=== PATIENT | female | born 1930 | race Caucasian/White ===

== ENCOUNTER → 2017-02-26 | Outpatient (CLI) | payer OTHER ==
[~2017-02-26] MED LIST: ACET300T2 PO; ASPI81TA28 PO; CLOP1TAB15 PO; CPR500 PO; CYAN10004 PO; FERR325T5 PO; GLC/500 PO; INSDGIPEN SC; INSUINJ4 SC; LISI40TA PO; LORA0.5T12 PO; MAGN250T3 PO; MAGN400T6 PO; MECL1TAB42 PO; METF1000 PO; MIRA1TAB3 PO; MTR500 PO; NTRGSL/4 UT; OMEP40CA41 PO; PENT100C6 PO; POLY335019 PO; POTA1080 PO; PROP20TA67 PO; SIMV40TA2 PO; SIMV40TA4 PO; [UNRECOGNIZED DRUG - CODE] PO
[2017-02-26 17:16] LABS: HEMATOCRIT 38.8 % (37-47); MEAN CORPUSCULAR HEMOGLOBIN 32.8 pg (25-34); MEAN CORPUSCULAR HGB CONC 33.8 g/dl (32-36); MEAN PLATELET VOLUME 9.3 fL (7.4-10.4); PLATELET COUNT 373 K/uL (130-400); WHITE BLOOD COUNT 13.88 K/uL (4.8-10.8)
[2017-02-26 17:23] LABS: ALT/SGPT 9 U/L (12-78); BLOOD UREA NITROGEN 31 mg/dl (7-18); BUN/CREATININE RATIO 15.7 (10-20); CALCIUM 9.4 mg/dl (8.5-10.1); CARBON DIOXIDE 26 mmol/L (21-32); CHLORIDE 105 mmol/L (98-107); GLUCOSE 78 mg/dl (70-99); SODIUM 139 mmol/L (136-145)
[2017-02-26 17:26] LABS: ALB/GLOB RATIO 0.8 (0.9-2); ALKALINE PHOSPHATASE 71 U/L (45-117); AST/SGOT 8 U/L (15-37)
[2017-02-26 20:16] LABS: BASO % 0.2 %; BASO ABS # 0.03 K/uL (0-0.2); COMPLETE YES; EOS % 2.2 %; IG% 0.3 %; LYMPH % 39.1 %; LYMPH ABS # 5.43 K/uL (1.2-3.4); MONO % 9.4 %; NEUT % 48.8 %
[2017-02-27 06:04] LABS: ESTIMATED AVERAGE GLUCOSE 163 mg/dl; HA1C FLAG Normal (Normal)
--- NOTE | 2017-03-05 11:40 | CODING QUERY MEDICAL NECESSITY ---
CQSUPPORTING DIAGNOSIS NEEDED A supporting diagnosis is required for the test/procedure performed on this patient in order for us to be reimbursed by the patient's insurance. Please provide a supporting diagnosis for the following test/procedure listed below next to the test name along with your signature. *If there is no additional diagnosis for this patient that would support the following test/procedure please document that below next to the test/procedure. Test(s)/Procedure(s) that require a supporting diagnosis: DOS 02/26/17 GLYCATED HEMOGLOBIN TEST VITAMIN D TEST VITAMIN B12 TEST Provider Signature: Date: Thank you Karen Esparza Health Information Management Once completed, please kindly fax back to [phone] For questions please call [phone]
== END | disposition home or self-care (01) ==
LOC: C.LABBC 14:37
PROVIDERS: ATTEND Internal Medicine
DX: D64.9 Anemia, unspecified (principal)

== ENCOUNTER 2017-10-17 19:18 | Inpatient (IN) | payer OTHER ==
[~2017-10-17] VITALS: Ht 160 cm; Wt 62.5 kg
[~2017-10-17 19:18] MED LIST changes: -CPR500 PO; -GLC/500 PO; -INSDGIPEN SC; -MAGN250T3 PO; -MECL1TAB42 PO; -MIRA1TAB3 PO; -MTR500 PO; -NTRGSL/4 UT; -POLY335019 PO; -POTA1080 PO; -SIMV40TA2 PO
[2017-10-17] MEDS ORDERED: INSDGIPEN SC (20:06)
[2017-10-17] MEDS ORDERED: POLY335019 PO (20:06)
[2017-10-17] MEDS ORDERED: MECL1TAB42 PO (20:06)
[2017-10-17] MEDS ORDERED: GLC/500 PO (20:06)
[2017-10-17] MEDS ORDERED: MAGN250T3 PO (20:06)
[2017-10-17] MEDS ORDERED: MIRA1TAB3 PO (20:07)
[2017-10-17] MEDS ORDERED: NTRGSL/4 UT (20:08)
[2017-10-17] MEDS ORDERED: SIMV40TA2 PO (20:11)
[2017-10-17] MEDS ORDERED: POTA1080 PO (20:11)
--- NOTE | 2017-10-17 20:20 | EMERGENCY ROOM VISIT NOTE ---
History First contact with patient: 19:25 Chief Complaint: CONSTIPATION Stated Complaint: NAUSEA/CONSTIPATION Nursing Triage Summary: Pt brought ALS from home for c/o constipation since Saturday, has had some nausea and rectal pain, denies either at present, denies abdominal pain. Pt states that she started leaking brown liquid from rectum today. Family called pcp and was advised to come to ED. Per EMS pt's family was concerned that pt has seems more tired than usual and that she is a diabetic, BSG for EMS was 200. EMS report that when they were getting the pt's vitals the carbon monixide alarm went off, pt has electric heat. History of Present Illness The patient is a 87 year old female who presents to the Emergency Room with complaints of constipation without bowel motion for 5 days. She denies abdominal pain but does report some adama-anal pain, with a known pmhx of hemorrhoids. She does report some leakage of fluid today and also reports diaphoresis and nausea earlier today but this has resolved.She denies any bleeding. Family noticed she was a bit more somnolent than usual and decided to call PCP who suggested they call EMS. She was diagnosed with a UTI yesterday but "doesn't do well" with antibiotics and is currently only taking AZO. Patient lives with her sister who is her primary animal care giver. She is mostly bedbound as she has chronic pain unresponsive to medications and can only find relief while lying flat. PMH significant for DM (well controlled), CAD, chronic pain. Review of Systems Constitutional: + weakness, No fever, No chills, No sweats, No weight loss, No fatigue, No problem reported ENT: No hearing loss, No unusual epistaxis, No nasal symptoms, No sore throat, No tinnitus, No dental problems, No trouble swallowing, No problem reported Respiratory: No cough, No sputum, No wheezing, No shortness of breath, No dyspnea on exertion, No dyspnea at rest, No hemoptysis, No problem reported Cardiovascular: No chest pain, No orthopnea, No PND, No edema, No claudication, No palpitations, No problem reported Abdomen: + constipation, No pain, No nausea, No vomiting, No diarrhea, No GI bleeding, No problem reported Musculoskeletal: + joint pain, + muscle pain Genitourinary - Female: + urinary frequency, + urinary urgency, No dysuria, No urinary incontinence, No urinary retention, No hematuria, No dysmenorrhea, No menorrhagia, No metrorrhagia, No rash, No vaginal bleeding, No vaginal discharge, No vaginal itching, No vulvodynia, No , No problem reported Integumentary: No rash Past Medical/Surgical History Medical Problems: (1) Colitis (2) CVA (3) Diabetes mellitus (4) History of - hypertension (5) Urinary tract infection Social History Smoking Status: Never Smoker Alcohol Use: none Drug Use: none Marital Status: Housing Status: lives with family Occupation Status: retired Current/Historical Medications Scheduled Aspirin (Aspirin Ec), 81 MG PO DAILY Clopidogrel (Plavix), 75 MG PO DAILY Cyanocobalamin (Vitamin B-12 1000 Mcg), 1,000 MCG PO DAILY Ferrous Sulfate (Ferrous Sulfate), 325 MG PO QAM Insulin Glargine (Lantus Solostar), 22 UNITS SC QPM Lisinopril (Zestril), 40 MG PO DAILY Lorazepam (Lorazepam), 0.5 MG PO BID Magnesium (Magnesium 250 mg), 2 TABS PO BID Metformin Hcl (Glucophage), 500 MG PO BID Mirabegron (Myrbetriq Er), 50 MG PO DAILY Nitroglycerin (Nitrostat), 0.4 MG UT PRN Omeprazole (Prilosec), 40 MG PO BID Pentosan Polysulfate Sodium (Elmiron), 100 MG PO TID Potassium Citrate (Alkalinizer (Potassium Citrate ER), 1 TAB PO BID Propranolol (Inderal), 20 MG PO DAILY Simvastatin (Zocor), 40 MG PO QPM Scheduled PRN Meclizine Hcl (Meclizine Hcl), 1 TAB PO TID PRN for Dizziness or Vertigo Polyethylene Glycol 3350 (Miralax), 17 GM PO DAILY PRN for Constipation Physical Exam Vital Signs Date Time Temp Pulse Resp B/P (MAP) Pulse Ox O2 Delivery O2 Flow Rate FiO2 10/17/17 22:58 36.5 95 20 129/67 96 Room Air 10/17/17 21:46 94 20 100/67 95 Room Air 10/17/17 19:26 36.6 86 20 129/72 93 Room Air Physical Exam General Appearance: WD/WN, no apparent distress (lying flat) Head: normocephalic, atraumatic Eyes: normal inspection, EOMI, sclerae normal ENT: hearing grossly normal Neck: supple, no adenopathy, no carotid bruits, trachea midline Respiratory/Chest: chest non-tender, lungs clear, normal breath sounds, no respiratory distress, no accessory muscle use Cardiovascular: regular rate, rhythm, no edema, no gallop, no JVD, no murmur , normal peripheral pulses Abdomen / GI: normal bowel sounds, soft, no organomegaly, + tenderness (LLQ) Extremities: normal inspection Neurologic/Psych: wrapper dipper II-XII nml as tested, no motor/sensory deficits, alert , normal mood/affect, normal reflexes, oriented x 3 Medical Decision & Procedures ER Provider Diagnostic Interpretation: ABDOMEN AND PELVIS CT WITHOUT CONTRAST CT DOSE: 341.48 mGy.cm HISTORY: constipation x 5 days, LLQ tenderness, r/o obstruction TECHNIQUE: Multiaxial CT images of the abdomen and pelvis were performed without contrast. A dose lowering technique was utilized adhering to the principles of ALARA. COMPARISON STUDY: Abdomen and pelvis CT 12/12/2011. FINDINGS: Mild interstitial thickening at the lung bases which is likely chronic. No suspicious lytic or blastic osseous lesions. Posterior decompression and fusion within the lower lumbar spine with pedicle screws and rods. Moderate hiatus hernia. The unenhanced liver, gallbladder, spleen, adrenal glands, and pancreas are unremarkable. Bilateral nephrolithiasis. No ureteral stones. No hydronephrosis. The bladder is decompressed by King catheter. The uterus and bilateral adnexa are unremarkable. No retroperitoneal lymphadenopathy. Tiny fat-containing umbilical hernia. Mild rectal wall thickening and perirectal fat stranding. Moderate sized stool ball within the rectum which measures 6 cm in diameter. Small to moderate amount well-formed stool seen throughout the colon. A 1.5 cm cyst within the upper pole of the right kidney. No evidence for bowel obstruction. Normal appendix. IMPRESSION: 1. Mild rectal wall thickening with perirectal fat stranding. This is consistent with a nonspecific proctitis and could represent a stercoral proctitis due to the stool ball within the rectum. 2. No evidence for bowel obstruction. 3. Bilateral nephrolithiasis. No hydronephrosis. 4. Moderate hiatus hernia. Laboratory Results Test 10/17/17 20:15 10/17/17 20:55 Urine Color ORANGE Urine Appearance SLIGHTLY CLOUDY (CLEAR) Urine pH (4.5-7.5) Urine Specific [place] 1.018 (1.000-1.030) Urine Protein NEG (NEG) Urine Glucose (UA) (NEG) Urine Ketones (NEG) Urine Occult Blood (NEG) Urine Nitrite (NEG) Urine Bilirubin (NEG) Urine Urobilinogen (NEG) Urine Leukocyte Esterase (NEG) Urine RBC 0-4 /hpf (0-4) Urine WBC >30 /hpf (0-5) Urine Epithelial Cells >30 /lpf (0-5) Urine Bacteria 1+ (NEG) Urine Mucus PRESENT (NONE PRSENT) Immature Granulocyte % (Auto) 0.3 % White Blood Count 19.02 K/uL (4.8-10.8) Red Blood Count 3.90 M/uL (4.2-5.4) Hemoglobin 12.7 g/dL (12.0-16.0) Hematocrit 38.1 % (37-47) Mean Corpuscular Volume 97.7 fL (80-100) Mean Corpuscular Hemoglobin 32.6 pg (25-34) Mean Corpuscular Hemoglobin Concent 33.3 g/dl (32-36) Platelet Count 369 K/uL (130-400) Mean Platelet Volume 8.8 fL (7.4-10.4) Neutrophils (%) (Auto) 73.8 % Lymphocytes (%) (Auto) 19.3 % Monocytes (%) (Auto) 6.3 % Eosinophils (%) (Auto) 0.2 % Basophils (%) (Auto) 0.1 % Neutrophils # (Auto) 14.04 K/uL (1.4-6.5) Lymphocytes # (Auto) 3.67 K/uL (1.2-3.4) Monocytes # (Auto) 1.19 K/uL (0.11-0.59) Eosinophils # (Auto) 0.04 K/uL (0-0.5) Basophils # (Auto) 0.02 K/uL (0-0.2) Immature Granulocyte # (Auto) 0.06 K/uL (0.00-0.02) Carboxyhemoglobin 0.3 % THgb Total Bilirubin 0.4 mg/dl (0.2-1) Aspartate Amino Transf (AST/SGOT) 13 U/L (15-37) Alanine Aminotransferase (ALT/SGPT) 10 U/L (12-78) Alkaline Phosphatase 82 U/L (45-117) Troponin I < 0.015 ng/ml (0-0.045) Total Protein 8.2 gm/dl (6.4-8.2) Albumin 3.3 gm/dl (3.4-5.0) Globulin 4.9 gm/dl (2.5-4.0) Albumin/Globulin Ratio 0.7 (0.9-2) Medications Administered Medications (Trade) Dose Ordered Sig/Nemo Route Start Time Stop Time Status Last Admin Dose Admin Bisacodyl (Dulcolax Supp) 10 mg 2303 ONCE MI 10/17/17 23:03 10/17/17 23:21 DC 10/18/17 01:43 10 MG ECG Indication: abdominal pain Rate (beats per minute): 95 Rhythm: sinus rhythm Findings: other (low voltage QRS, nonspecific ST changes) Comparison ECG Date: 02 oct 2013 Change: When compared with ECG of 02-OCT-2013 16:37, Nonspecific T wave abnormality, worse in Inferior leads ED Course 0: The patient was evaluated in room B12B. A complete history and physical exam was performed. 1944: Discussed case with Dr. Barrett, ordered UA, EKG, CBC, trop, carboxyhemoglobin, non-contrast CT abdo/pelvis 2234: I reevaluated the patient and updated her on her results. I discussed her treatment plan and she agrees to the plan. The patient will be further evaluated. 2241: I discussed the patients case with Dr. Joaquin, [facility] Hospitalist. He understands the patients condition and agrees to accept the patient. The patient will be further evaluated. Medical Decision Triage Nursing notes reviewed. Additional history obtained from patient and family. The patient's history was concerning for constipation. Differential diagnosis: Etiologies such as functional constipation, impaction, obstruction, volvulus, metabolic abnormality, infection, neurologic, as well as others were entertained. Physical examination findings: As above. No peritoneal findings noted on abdominal examination. Diagnostics interpreted by me: ECG: Normal sinus rhythm Low voltage QRS Nonspecific ST abnormality Abnormal ECG When compared with ECG of 02-OCT-2013 16:37, Nonspecific T wave abnormality, worse in Inferior leads The labs revealed leukocytosis, hyperkalemia, Cr of 2.08 Imaging studies: as above Consultation: A consultation was placed with the [facility] hospitalist. The case was discussed. The patient was evaluated in the Emergency Room for further treatment. Impression Primary Impression: Constipation Additional Impression: Hyperkalemia Departure Information Dispostion Admitted as an inpatient Condition FAIR Referrals Manjit Pearl M.D. (PCP) Patient Instructions My [facility] Resident Tracking Resident Involvement: Resident Care Provided Care Provided: Adult ED Problem Qualifiers Primary Impression: Constipation Constipation type: unspecified constipation type Qualified Codes: K59.00 - Constipation, unspecified
[2017-10-17 21:15] LABS: HEMATOCRIT 38.1 % (37-47); MEAN CELL VOLUME 97.7 fL (80-100); MEAN CORPUSCULAR HEMOGLOBIN 32.6 pg (25-34); MEAN CORPUSCULAR HGB CONC 33.3 g/dl (32-36); MEAN PLATELET VOLUME 8.8 fL (7.4-10.4); PLATELET COUNT 369 K/uL (130-400); WHITE BLOOD COUNT 19.02 K/uL (4.8-10.8)
--- NOTE | 2017-10-17 21:31 | DIAGNOSTIC IMAGING REPORT ---
ABDOMEN AND PELVIS CT WITHOUT CONTRAST CT DOSE: 341.48 mGy.cm HISTORY: constipation x 5 days, LLQ tenderness, r/o obstruction TECHNIQUE: Multiaxial CT images of the abdomen and pelvis were performed without contrast. A dose lowering technique was utilized adhering to the principles of ALARA. COMPARISON STUDY: Abdomen and pelvis CT 12/12/2011. FINDINGS: Mild interstitial thickening at the lung bases which is likely chronic. No suspicious lytic or blastic osseous lesions. Posterior decompression and fusion within the lower lumbar spine with pedicle screws and rods. Moderate hiatus hernia. The unenhanced liver, gallbladder, spleen, adrenal glands, and pancreas are unremarkable. Bilateral nephrolithiasis. No ureteral stones. No hydronephrosis. The bladder is decompressed by King catheter. The uterus and bilateral adnexa are unremarkable. No retroperitoneal lymphadenopathy. Tiny fat-containing umbilical hernia. Mild rectal wall thickening and perirectal fat stranding. Moderate sized stool ball within the rectum which measures 6 cm in diameter. Small to moderate amount well-formed stool seen throughout the colon. A 1.5 cm cyst within the upper pole of the right kidney. No evidence for bowel obstruction. Normal appendix. IMPRESSION: 1. Mild rectal wall thickening with perirectal fat stranding. This is consistent with a nonspecific proctitis and could represent a stercoral proctitis due to the stool ball within the rectum. 2. No evidence for bowel obstruction. 3. Bilateral nephrolithiasis. No hydronephrosis. 4. Moderate hiatus hernia. Electronically signed by: Hood Perez M.D. 10/17/2017 9:30 PM Dictated Date/Time: 10/17/2017 9:17 PM
[2017-10-17 21:40] LABS: ALT/SGPT 10 U/L (12-78); AST/SGOT 13 U/L (15-37); BLOOD UREA NITROGEN 35 mg/dl (7-18); BUN/CREATININE RATIO 16.6 (10-20); CALCIUM 9.6 mg/dl (8.5-10.1); CARBON DIOXIDE 22 mmol/L (21-32); CHLORIDE 101 mmol/L (98-107); CREATININE 2.08 mg/dl (0.60-1.20); GLUCOSE 192 mg/dl (70-99); POTASSIUM 5.6 mmol/L (3.5-5.1); SODIUM 134 mmol/L (136-145)
[2017-10-17 21:44] LABS: ALB/GLOB RATIO 0.7 (0.9-2); ALKALINE PHOSPHATASE 82 U/L (45-117)
[2017-10-17 21:45] LABS: BASO % 0.1 %; BASO ABS # 0.02 K/uL (0-0.2); COMPLETE YES; EOS % 0.2 %; IG% 0.3 %; LYMPH % 19.3 %; LYMPH ABS # 3.67 K/uL (1.2-3.4); MONO % 6.3 %; NEUT % 73.8 %
[2017-10-17] MEDS ORDERED: CEFTRIAXONE SOD INJ 1 GM ADDVIAL IV STA (22:33)
[2017-10-17] MEDS ORDERED: BISACODYL 10 MG SUPP PR ONE (23:03)
[2017-10-17] MEDS ORDERED: NITROGLYCERIN 0.4 MG SL PER TAB CHARGE UT SCH (23:15)
[2017-10-17] MEDS ORDERED: BISACODYL 10 MG SUPP PR PRN (23:15)
[2017-10-17] MEDS ORDERED: MECLIZINE HCL 25 MG TAB PO PRN (23:15)
[2017-10-17] MEDS ORDERED: ALUMINUM/MAGNESIUM/SIMETH (MAALOX MAX) 30 ML UDC PO PRN (23:15)
[2017-10-17] MEDS ORDERED: MAGNESIUM HYDROXIDE SUSP 30 ML UDC PO PRN (23:15)
[2017-10-17] MEDS ORDERED: NON-FORMULARY MEDICATION (Polyethylene Glycol 3350 (Miralax) 17 GM) PO PRN (23:15)
[2017-10-17] MEDS ORDERED: ONDANSETRON INJ 2 MG/ML 2 ML VIAL IV PRN (23:15)
[2017-10-17] MEDS ORDERED: POLYETHYLENE (MIRALAX) 17 GM PACK PO PRN (23:15)
[2017-10-17 23:29] LABS: MANUAL MICROSCOPIC REQUIRED? YES; REVIEW REQ? NO
[2017-10-17 23:30] LABS: URINE APPEARANCE SLIGHTLY CLOUDY (CLEAR); URINE COLOR ORANGE; URINE SPECIFIC GRAVITY 1.018 (1.000-1.030)
[2017-10-17] MEDS ORDERED: GLUCOSE 10 TABS/TUBE PO PRN (23:30)
[2017-10-17] MEDS ORDERED: GLUCOSE 40% GEL 15 GM TUBE PO PRN (23:30)
[2017-10-17] MEDS ORDERED: GLUCAGON FOR INJ 1 MG VIAL SQ PRN (23:30)
[2017-10-17] MEDS ORDERED: DEXTROSE 50% 50 ML SYR IV PRN (23:30)
[2017-10-17 23:41] LABS: SULFASALICYLIC ACID NEG (NEG)
[2017-10-17 23:43] LABS: URINE WBC >30 /hpf (0-5)
[2017-10-17 23:44] LABS: URINE BACTERIA 1+ (NEG); URINE MUCUS PRESENT (NONE PRSENT)
[2017-10-17 23:46] LABS: URINE RBC 0-4 /hpf (0-4)
--- NOTE | 2017-10-18 00:16 | EMERGENCY ROOM VISIT NOTE ---
History Report prepared by Kartik: Silvestre Bui Under the Supervision of: Dr. Curly Barrett M.D. First contact with patient: 19:25 Chief Complaint: CONSTIPATION Stated Complaint: NAUSEA/CONSTIPATION Nursing Triage Summary: Pt brought ALS from home for c/o constipation since Saturday, has had some nausea and rectal pain, denies either at present, denies abdominal pain. Pt states that she started leaking brown liquid from rectum today. Family called pcp and was advised to come to ED. Per EMS pt's family was concerned that pt has seems more tired than usual and that she is a diabetic, BSG for EMS was 200. EMS report that when they were getting the pt's vitals the carbon monixide alarm went off, pt has electric heat. History of Present Illness The patient is a 87 year old female who presents to the Emergency Room with complaints of constant constipation that started five days ago. The patient states that she lives with her sister who is her cellular biologist. She reports that her sister usually gives her Miralax daily and has never experienced constipation problems in the past. The patient states that she has not been able to have a bowel movement since five days ago, but admits that today she noticed some brown leaking from her anus. She states that this morning she was also experiencing nausea, but denies any episodes of vomiting. The patient reports that she was also experiencing dizziness and diaphoresis. She reports that there is pain in the left lower quadrant abdomen and around the perianal region. The patient is accompanied by her family who state that the patient has been more fatigued than usual lately. The patient admits to a history of hemorrhoids and a UTI. She states that she was diagnosed with a UTI yesterday and was put on Azo. The patient denies vomiting, fever, chest pain, shortness of breath, headache, a history of a bowel obstruction. Source of History: patient Onset: 5 days ago Position: other (global) Quality: other (global) Timing: constant Associated Symptoms: + diaphoresis, + nausea, + abdominal pain (LLQ), No fevers, No headache, No chest pain, No SOB, No vomiting Review of Systems See HPI for pertinent positives & negatives. A total of 10 systems reviewed and were otherwise negative. Past Medical & Surgical Medical Problems: (1) Colitis (2) CVA (3) Diabetes mellitus (4) History of - hypertension (5) Urinary tract infection Family History Patient reports no known family medical history. Social History Smoking Status: Never Smoker Alcohol Use: none Drug Use: none Marital Status: Housing Status: lives with family Occupation Status: retired Current/Historical Medications Scheduled Aspirin (Aspirin Ec), 81 MG PO DAILY Clopidogrel (Plavix), 75 MG PO DAILY Cyanocobalamin (Vitamin B-12 1000 Mcg), 1,000 MCG PO DAILY Ferrous Sulfate (Ferrous Sulfate), 325 MG PO QAM Insulin Glargine (Lantus Solostar), 22 UNITS SC QPM Lisinopril (Zestril), 40 MG PO DAILY Lorazepam (Lorazepam), 0.5 MG PO BID Magnesium (Magnesium 250 mg), 2 TABS PO BID Metformin Hcl (Glucophage), 500 MG PO BID Mirabegron (Myrbetriq Er), 50 MG PO DAILY Nitroglycerin (Nitrostat), 0.4 MG UT PRN Omeprazole (Prilosec), 40 MG PO BID Pentosan Polysulfate Sodium (Elmiron), 100 MG PO TID Potassium Citrate (Alkalinizer (Potassium Citrate ER), 1 TAB PO BID Propranolol (Inderal), 20 MG PO DAILY Simvastatin (Zocor), 40 MG PO QPM Scheduled PRN Meclizine Hcl (Meclizine Hcl), 1 TAB PO TID PRN for Dizziness or Vertigo Polyethylene Glycol 3350 (Miralax), 17 GM PO DAILY PRN for Constipation Allergies Coded Allergies: No Known Allergies (Verified , 10/21/11) Physical Exam Vital Signs Date Time Temp Pulse Resp B/P (MAP) Pulse Ox O2 Delivery O2 Flow Rate FiO2 10/17/17 22:58 36.5 95 20 129/67 96 Room Air 10/17/17 21:46 94 20 100/67 95 Room Air 10/17/17 19:26 36.6 86 20 129/72 93 Room Air Physical Exam Constitutional: Vital signs reviewed. Eyes: Pupils are equal round reactive to light. Conjunctiva are noninjected. ENT: Pharynx is clear without erythema or exudate. Mucous membranes are moist. Neck supple without meningeal signs. Respiratory: Clear to auscultation bilaterally. Breath sounds are equal bilaterally. Cardiovascular: Regular rate and rhythm. No rubs or gallops. GI: Soft, nondistended and nontender. Bowel sounds are present. Musculoskeletal: No peripheral edema. No lower extremity tenderness. Integumentary: No cyanosis. Neurological: The patient is awake and alert. No focal deficits. Psychiatric: Normal affect. Medical Decision & Procedures ER Provider Diagnostic Interpretation: CT results as stated below per my review and radiologist interpretation. ABDOMEN AND PELVIS CT WITHOUT CONTRAST CT DOSE: 341.48 mGy.cm HISTORY: constipation x 5 days, LLQ tenderness, r/o obstruction TECHNIQUE: Multiaxial CT images of the abdomen and pelvis were performed without contrast. A dose lowering technique was utilized adhering to the principles of ALARA. COMPARISON STUDY: Abdomen and pelvis CT 12/12/2011. FINDINGS: Mild interstitial thickening at the lung bases which is likely chronic. No suspicious lytic or blastic osseous lesions. Posterior decompression and fusion within the lower lumbar spine with pedicle screws and rods. Moderate hiatus hernia. The unenhanced liver, gallbladder, spleen, adrenal glands, and pancreas are unremarkable. Bilateral nephrolithiasis. No ureteral stones. No hydronephrosis. The bladder is decompressed by King catheter. The uterus and bilateral adnexa are unremarkable. No retroperitoneal lymphadenopathy. Tiny fat-containing umbilical hernia. Mild rectal wall thickening and perirectal fat stranding. Moderate sized stool ball within the rectum which measures 6 cm in diameter. Small to moderate amount well-formed stool seen throughout the colon. A 1.5 cm cyst within the upper pole of the right kidney. No evidence for bowel obstruction. Normal appendix. IMPRESSION: 1. Mild rectal wall thickening with perirectal fat stranding. This is consistent with a nonspecific proctitis and could represent a stercoral proctitis due to the stool ball within the rectum. 2. No evidence for bowel obstruction. 3. Bilateral nephrolithiasis. No hydronephrosis. 4. Moderate hiatus hernia. Electronically signed by: Hood Perez M.D. 10/17/2017 9:30 PM Dictated Date/Time: 10/17/2017 9:17 PM Laboratory Results 10/17/17 20:55 Red Blood Count 3.90, Mean Corpuscular Volume 97.7, Mean Corpuscular Hemoglobin 32.6, Mean Corpuscular Hemoglobin Concent 33.3, Mean Platelet Volume 8.8, Neutrophils (%) (Auto) 73.8, Lymphocytes (%) (Auto) 19.3, Monocytes (%) (Auto) 6.3, Eosinophils (%) (Auto) 0.2, Basophils (%) (Auto) 0.1, Neutrophils # (Auto) 14.04, Lymphocytes # (Auto) 3.67, Monocytes # (Auto) 1.19, Eosinophils # (Auto) 0.04, Basophils # (Auto) 0.02 10/17/17 20:55 Test 10/17/17 20:15 10/17/17 20:55 Urine Color ORANGE Urine Appearance SLIGHTLY CLOUDY (CLEAR) Urine pH (4.5-7.5) Urine Specific [place] 1.018 (1.000-1.030) Urine Protein NEG (NEG) Urine Glucose (UA) (NEG) Urine Ketones (NEG) Urine Occult Blood (NEG) Urine Nitrite (NEG) Urine Bilirubin (NEG) Urine Urobilinogen (NEG) Urine Leukocyte Esterase (NEG) Urine RBC 0-4 /hpf (0-4) Urine WBC >30 /hpf (0-5) Urine Epithelial Cells >30 /lpf (0-5) Urine Bacteria 1+ (NEG) Urine Mucus PRESENT (NONE PRSENT) White Blood Count 19.02 K/uL (4.8-10.8) Red Blood Count 3.90 M/uL (4.2-5.4) Hemoglobin 12.7 g/dL (12.0-16.0) Hematocrit 38.1 % (37-47) Mean Corpuscular Volume 97.7 fL (80-100) Mean Corpuscular Hemoglobin 32.6 pg (25-34) Mean Corpuscular Hemoglobin Concent 33.3 g/dl (32-36) Platelet Count 369 K/uL (130-400) Mean Platelet Volume 8.8 fL (7.4-10.4) Neutrophils (%) (Auto) 73.8 % Lymphocytes (%) (Auto) 19.3 % Monocytes (%) (Auto) 6.3 % Eosinophils (%) (Auto) 0.2 % Basophils (%) (Auto) 0.1 % Neutrophils # (Auto) 14.04 K/uL (1.4-6.5) Lymphocytes # (Auto) 3.67 K/uL (1.2-3.4) Monocytes # (Auto) 1.19 K/uL (0.11-0.59) Eosinophils # (Auto) 0.04 K/uL (0-0.5) Basophils # (Auto) 0.02 K/uL (0-0.2) RDW Standard Deviation 51.4 fL (36.4-46.3) RDW Coefficient of Variation 14.4 % (11.5-14.5) Immature Granulocyte % (Auto) 0.3 % Immature Granulocyte # (Auto) 0.06 K/uL (0.00-0.02) Carboxyhemoglobin 0.3 % THgb Anion Gap 11.0 mmol/L (3-11) Est Creatinine Clear Calc Drug Dose 17.1 ml/min Estimated GFR () 24.2 Estimated GFR (Non- 20.9 BUN/Creatinine Ratio 16.6 (10-20) Calcium Level 9.6 mg/dl (8.5-10.1) Total Bilirubin 0.4 mg/dl (0.2-1) Aspartate Amino Transf (AST/SGOT) 13 U/L (15-37) Alanine Aminotransferase (ALT/SGPT) 10 U/L (12-78) Alkaline Phosphatase 82 U/L (45-117) Troponin I < 0.015 ng/ml (0-0.045) Total Protein 8.2 gm/dl (6.4-8.2) Albumin 3.3 gm/dl (3.4-5.0) Globulin 4.9 gm/dl (2.5-4.0) Albumin/Globulin Ratio 0.7 (0.9-2) Laboratory results as reviewed by me. ECG Indication: other (dizziness) Rate (beats per minute): 95 Rhythm: normal sinus Findings: other (limited interpretation due to baseline artifact. No ST elevations.) ED Course 1958: The patient was evaluated in room B12B. A complete history and physical exam was performed. 2234: I reevaluated the patient and updated her on her results. I discussed her treatment plan and she agrees to the plan. The patient will be further evaluated. 2241: I discussed the patients case with Dr. Joaquin, [facility] Hospitalist. He understands the patients condition and agrees to accept the patient. The patient will be further evaluated. Medical Decision This is a 87-year-old female who presents with limited bowel movements as well as generalized malaise. Differential diagnosis includes fecal impaction, constipation, bowel obstruction, UTI, SIRS, cardiac, metabolic derangement. I did perform a limited focused review of portions of the patient's old chart on the electronic medical record. The patient has had no recent pertinent visits to this hospital. I did evaluate the patient as noted above. She is presenting with rectal pain and decreased bowel movements. She states it was all liquid today. She has no tenderness on examination of her abdomen currently. She also feels weak in general and dizzy and had urinary symptoms but did not take any antibiotics because she states oral antibiotics do not agree with her. EMS also noted that there CO2 detectors went off when they went in her house but the patient does not have any gas in her house. All of her utilities are electric. IV access was established. The patient was placed on a continuous quality assurance monitor. I did order and personally review the patient's 12-lead EKG as described above. I did order and review the patient's blood work as noted in the electronic medical record. Her white blood cell count is elevated. She does have chronic kidney disease and her potassium is slightly elevated. I did order a CT of the abdomen and pelvis. I did review the images myself as well as the radiology report as described above. Does have evidence of proctitis as well as fecal impaction. The case was discussed with the hospitalist and case making machine operator for further evaluation in the hospital. Resident Physician Supervision Note: I did evaluate and examine this patient myself. I did guide management for the patient. I agree with the resident's Dr. Jcaey Weiner assessment as discussed. Please see the resident's dictation for further details. Medication Reconcilliation Current Medication List: was personally reviewed by me Blood Pressure Screening Patient's blood pressure: Elevated blood pressure Blood pressure disposition: Referred to PCP Consults Time Called: 2241 Consulting Physician: Dr. Joaquin [facility] Hospitalist Returned Call: 2241 I discussed the patients case with Dr. Joaquin [facility] Hospitalist. He understands the patients condition and agrees to accept the patient. The patient will be further evaluated. Impression Primary Impression: Proctitis Additional Impressions: Fecal impaction Chronic kidney disease Hyperkalemia UTI (urinary tract infection) Scribe Attestation The scribe's documentation has been prepared under my direct and personally reviewed by me in its entirety. I confirm that the note above accurately reflects all work, treatment, procedures, and medical decision making performed by me. Departure Information Dispostion Being Evaluated By Hospitalist Referrals Manjit Pearl M.D. (PCP) Patient Instructions My [facility] Problem Qualifiers Additional Impressions: Chronic kidney disease Chronic kidney disease stage: unspecified stage Qualified Codes: N18.9 - Chronic kidney disease, unspecified UTI (urinary tract infection) Urinary tract infection type: site unspecified Hematuria presence: with hematuria Qualified Codes: N39.0 - Urinary tract infection, site not specified ; R31.9 - Hematuria, unspecified
[2017-10-18] MEDS ORDERED: INSULIN GLARGINE SOLOSTAR 100 UNITS/ML 3 ML PEN SC STA (00:57)
[2017-10-18] MEDS: SODIUM CHLORIDE 0.9% 1000ML 1,000 ML IV SCH ×2 (01:30→17:00)
[2017-10-18] MEDS: CIPROFLOXACIN / D5W 400 MG in PREMIXED IN D5W 200 ML IV SCH (01:42)
[2017-10-18] MEDS: METRONIDAZOLE / NSS 500 MG in PREMIXED NSS 100 ML IV SCH ×3 (01:43→16:55)
[2017-10-18] MEDS: ACETAMINOPHEN 325 MG TAB PO PRN ×2 (01:52→18:25)
[2017-10-18 02:00] VITALS: BP 101/59; PULSE 95; TEMP 36.6; O2SAT 96; Ht 160 cm; Wt 62.5 kg
--- NOTE | 2017-10-18 02:21 | History and Physical ---
History & Physical Date & Time of Service: Oct 18, 2017 at 01:59 Chief Complaint: Colitis, Urinary Tract Infection Primary Care Physician: Manjit Pearl M.D. History of Present Illness Source: patient, family (daughter) The patient is an 87-year-old female with a past medical history of coronary artery disease, type 2 diabetes, GERD, chronic back pain, overactive bladder, interstitial cystitis anxiety, who presents to the emergency department with 5 days of inability to have a bowel movement. Patient also reports feeling weak, and family note the same. The patient reports only mild abdominal pain earlier today which is now resolved. The patient denies any nausea or vomiting. The patient is usually on a daily bowel regimen with MiraLAX which she has continued to take. In addition she reports dysuria for the past 2 days and started Pyridium has not been on antibiotics. The patient denies having any fevers, chills or sweats. Appetite has been slightly diminished. The patient has significant head to toe pain which is long-standing, and in recent days his fortunately unchanged. The pain stems from chronic back issues and surgery. Unfortunately given her chronic pain, the patient is seldom ambulatory, and only walks to go to the bathroom. Otherwise it is noted by the daughter that the patient is usually confined to the bed of the couch. The patient lives at home with her oldest daughter. In the emergency room a CT scan of her abdomen was done which did show evidence of a stercoral colitis, and fecal impaction. She had a white blood cell count of 19. The UA could not be interpreted as a parent was on Pyridium and urine culture was sent. Decision was made to admit the patient for further evaluation and management. Past Medical/Surgical History Medical Problems: (1) CVA Status: Resolved (2) Diabetes mellitus Status: Chronic (3) History of - hypertension Status: Chronic Family History Patient reports no known family medical history. Social History Smoking Status: Never Smoker Smokeless Tobacco Use: No Alcohol Use: none Drug Use: none Marital Status: Housing status: lives with family (daughter) Occupational Status: retired Immunizations History of Influenza Vaccine: No Influenza Vaccine Date: Sep 14, 2013 History of Tetanus Vaccine?: UTD History of Pneumococcal: Unknown History of Hepatitis B Vaccine: Unknown Multi-Drug Resistant Organisms History of MDRO: No Allergies Coded Allergies: No Known Allergies (Verified , 10/21/11) Home Medications Scheduled Aspirin (Aspirin Ec), 81 MG PO DAILY Clopidogrel (Plavix), 75 MG PO DAILY Cyanocobalamin (Vitamin B-12 1000 Mcg), 1,000 MCG PO DAILY Ferrous Sulfate (Ferrous Sulfate), 325 MG PO QAM Insulin Glargine (Lantus Solostar), 22 UNITS SC QPM Lisinopril (Zestril), 40 MG PO DAILY Lorazepam (Lorazepam), 0.5 MG PO BID Magnesium (Magnesium 250 mg), 2 TABS PO BID Metformin Hcl (Glucophage), 500 MG PO BID Mirabegron (Myrbetriq Er), 50 MG PO DAILY Nitroglycerin (Nitrostat), 0.4 MG UT PRN Omeprazole (Prilosec), 40 MG PO BID Pentosan Polysulfate Sodium (Elmiron), 100 MG PO TID Potassium Citrate (Alkalinizer (Potassium Citrate ER), 1 TAB PO BID Propranolol (Inderal), 20 MG PO DAILY Simvastatin (Zocor), 40 MG PO QPM Scheduled PRN Meclizine Hcl (Meclizine Hcl), 1 TAB PO TID PRN for Dizziness or Vertigo Polyethylene Glycol 3350 (Miralax), 17 GM PO DAILY PRN for Constipation Review of Systems A 10 point review of systems was negative unless stated above. Physical Exam Vital Signs Date Time Temp Pulse Resp B/P (MAP) Pulse Ox O2 Delivery O2 Flow Rate FiO2 10/18/17 00:12 70 20 100/70 98 10/17/17 22:58 36.5 95 20 129/67 96 Room Air 10/17/17 21:46 94 20 100/67 95 Room Air 10/17/17 19:26 36.6 86 20 129/72 93 Room Air General Appearance: WD/WN, no apparent distress, + pertinent finding (patient is lying on her left side; the patient has markedly difficulty lying flat on her back to pain) Head: normocephalic, atraumatic Eyes: normal inspection, EOMI ENT: hearing grossly normal, pharynx normal Neck: supple, no adenopathy, no JVD Respiratory/Chest: lungs clear, no respiratory distress Cardiovascular: regular rate, rhythm, no gallop, no murmur Abdomen/GI: normal bowel sounds, non tender, soft, + distended Back: no CVA tenderness, + pertinent finding (erythema from the sacral area, with evidence of [place] risk of decubitus ulceration) Extremities/Musculoskelatal: no calf tenderness, no pedal edema Neurologic/Psych: alert, normal mood/affect, oriented x 3 Skin: normal color, warm/dry, no rash Lymphatic: no adenopathy Diagnostics Laboratory Results Results Past 24 Hours Test 10/17/17 20:15 10/17/17 20:55 Range/Units Urine Color ORANGE Urine Appearance SLIGHTLY CLOUDY CLEAR Urine pH 4.5-7.5 Urine Specific [place] 1.018 1.000-1.030 Urine Protein NEG NEG Urine Glucose (UA) NEG Urine Ketones NEG Urine Occult Blood NEG Urine Nitrite NEG Urine Bilirubin NEG Urine Urobilinogen NEG Urine Leukocyte Esterase NEG Urine RBC 0-4 0-4 /hpf Urine WBC >30 0-5 /hpf Urine Epithelial Cells >30 0-5 /lpf Urine Bacteria 1+ NEG Urine Mucus PRESENT NONE PRSENT White Blood Count 19.02 4.8-10.8 K/uL Red Blood Count 3.90 4.2-5.4 M/uL Hemoglobin 12.7 12.0-16.0 g/dL Hematocrit 38.1 37-47 % Mean Corpuscular Volume 97.7 80-100 fL Mean Corpuscular Hemoglobin 32.6 25-34 pg Mean Corpuscular Hemoglobin Concent 33.3 32-36 g/dl Platelet Count 369 130-400 K/uL Mean Platelet Volume 8.8 7.4-10.4 fL Neutrophils (%) (Auto) 73.8 % Lymphocytes (%) (Auto) 19.3 % Monocytes (%) (Auto) 6.3 % Eosinophils (%) (Auto) 0.2 % Basophils (%) (Auto) 0.1 % Neutrophils # (Auto) 14.04 1.4-6.5 K/uL Lymphocytes # (Auto) 3.67 1.2-3.4 K/uL Monocytes # (Auto) 1.19 0.11-0.59 K/uL Eosinophils # (Auto) 0.04 0-0.5 K/uL Basophils # (Auto) 0.02 0-0.2 K/uL RDW Standard Deviation 51.4 36.4-46.3 fL RDW Coefficient of Variation 14.4 11.5-14.5 % Immature Granulocyte % (Auto) 0.3 % Immature Granulocyte # (Auto) 0.06 0.00-0.02 K/uL Carboxyhemoglobin 0.3 % THgb Sodium Level 134 136-145 mmol/L Potassium Level 5.6 3.5-5.1 mmol/L Chloride Level 101 98-107 mmol/L Carbon Dioxide Level 22 21-32 mmol/L Anion Gap 11.0 3-11 mmol/L Blood Urea Nitrogen 35 7-18 mg/dl Creatinine 2.08 0.60-1.20 mg/dl Est Creatinine Clear Calc Drug Dose 17.1 ml/min Estimated GFR () 24.2 Estimated GFR (Non- 20.9 BUN/Creatinine Ratio 16.6 10-20 Random Glucose 192 70-99 mg/dl Calcium Level 9.6 8.5-10.1 mg/dl Total Bilirubin 0.4 0.2-1 mg/dl Aspartate Amino Transf (AST/SGOT) 13 15-37 U/L Alanine Aminotransferase (ALT/SGPT) 10 12-78 U/L Alkaline Phosphatase 82 45-117 U/L Troponin I < 0.015 0-0.045 ng/ml Total Protein 8.2 6.4-8.2 gm/dl Albumin 3.3 3.4-5.0 gm/dl Globulin 4.9 2.5-4.0 gm/dl Albumin/Globulin Ratio 0.7 0.9-2 Microbiology Results 10/17/17 Urine Culture, Received Pending Diagnostic Radiology [~ rep ct add3]] ABDOMEN AND PELVIS CT WITHOUT CONTRAST CT DOSE: 341.48 mGy.cm HISTORY: constipation x 5 days, LLQ tenderness, r/o obstruction TECHNIQUE: Multiaxial CT images of the abdomen and pelvis were performed without contrast. A dose lowering technique was utilized adhering to the principles of ALARA. COMPARISON STUDY: Abdomen and pelvis CT 12/12/2011. FINDINGS: Mild interstitial thickening at the lung bases which is likely chronic. No suspicious lytic or blastic osseous lesions. Posterior decompression and fusion within the lower lumbar spine with pedicle screws and rods. Moderate hiatus hernia. The unenhanced liver, gallbladder, spleen, adrenal glands, and pancreas are unremarkable. Bilateral nephrolithiasis. No ureteral stones. No hydronephrosis. The bladder is decompressed by King catheter. The uterus and bilateral adnexa are unremarkable. No retroperitoneal lymphadenopathy. Tiny fat-containing umbilical hernia. Mild rectal wall thickening and perirectal fat stranding. Moderate sized stool ball within the rectum which measures 6 cm in diameter. Small to moderate amount well-formed stool seen throughout the colon. A 1.5 cm cyst within the upper pole of the right kidney. No evidence for bowel obstruction. Normal appendix. IMPRESSION: 1. Mild rectal wall thickening with perirectal fat stranding. This is consistent with a nonspecific proctitis and could represent a stercoral proctitis due to the stool ball within the rectum. 2. No evidence for bowel obstruction. 3. Bilateral nephrolithiasis. No hydronephrosis. 4. Moderate hiatus hernia. Electronically signed by: Hood Perez M.D. 10/17/2017 9:30 PM Dictated Date/Time: 10/17/2017 9:17 PM The status of this report is Signed. Draft = Not yet reviewed or approved by Radiologist. Signed = Reviewed and approved by Radiologist. Impression Assessment and Plan A 87 year old female presenting with constipation, stercoral colitis, and suspected urinary tract infection. Our plan for her is as follows: - Proctitis/Stercoral colitis: IV ciprofloxacin and IV Flagyl. Keep patient on clear liquid diet and advance as tolerated. - Suspected urinary tract infection: UA cannot be interpreted due to Pyridium. Urine culture is pending.IV ciprofloxacin. Slow rehydration with NSS @ 75 ml/ hr. - Hyperkalemia: K 5.6. Rehydrate as above and repeat BMP with morning labs. - Constipation: Continue daily MiraLAX. One-time dose of Dulcolax suppository has been ordered. - Chronic back pain: Stable, patient reports intolerance to opiates. Tylenol PRN. 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 Baseline estimated between 1.6-1.7. Gently rehydrate as above, recheck BMP in the morning. - Coronary artery disease: Continue ASA, clopidogrel, propranolol, Lisinopril, nitroglycerin PRN and simvastatin. - Type 2 diabetes mellitus: Continue home dose of Lantus at nighttime. Sliding scale insulin coverage is been added. - GERD: Continue Pantoprazole. - Overactive bladder/interstitial cystitis: Continue Myrbetriq and Elmiron - Dizziness: Continue meclizine PRN - Anxiety : Continue Ativan - DVT prophylaxis: SCD, TEDs, Heparin s.c TID - OT and PT evaluations ordered - Level 5 DNR - Admission to medical/surgical floor. Attending addendum: I have physically seen this patient, have supervised the medical residents activities, and agree with the H&P unless as otherwise noted. Assessment and Plan: Stercoral colitis-- Place on Flagyl IV and Cipro IV. Clear liquid diet to advance as tolerated. Continue daily MiraLAX Dulcolax suppository now and daily when necessary NSS at 75 ML's per hour CAD/hypertension/chronic kidney disease--continue aspirin, clopidogrel, propranolol, lisinopril and nitroglycerin when necessary. Creatinine is a little worse than baseline at 2.08. Gentle hydration with normal saline as above. Hyperlipidemia--continue simvastatin Diabetes mellitus--continue Lantus from dosing. Place on Accu-Cheks before meals and at bedtime with NovoLog coverage per scale. GERD--continue pantoprazole Overactive bladder/interstitial cystitis--continue Myrbetriq and Elmiron Level of Care Med/Surg Advanced Directives Existing Advance Directive: Yes Existing Living Will: Yes Existing Power of Poker Prop Player: Yes Resuscitation Status DO NOT RESUSCITATE VTE Prophylaxis VTE Risk Assessment Done? Y/N: Yes Risk Level: Moderate Given or contraindicated: Unfractionated heparin SQ
[2017-10-18] MEDS ORDERED: NURSING DECISION MEDICATION ORDER SCH (05:15)
[2017-10-18] MEDS ORDERED: MICONAZOLE NITRATE POWDER 43 GM EXT PRN (05:30)
[2017-10-18 07:23] VITALS: BP 95/66; PULSE 90; TEMP 36.3; O2SAT 94
[2017-10-18 07:43] LABS: HEMATOCRIT 34.1 % (37-47); MEAN CELL VOLUME 96.3 fL (80-100); MEAN CORPUSCULAR HEMOGLOBIN 31.9 pg (25-34); MEAN CORPUSCULAR HGB CONC 33.1 g/dl (32-36); MEAN PLATELET VOLUME 8.7 fL (7.4-10.4); PLATELET COUNT 333 K/uL (130-400); RED BLOOD COUNT 3.54 M/uL (4.2-5.4); WHITE BLOOD COUNT 16.91 K/uL (4.8-10.8)
[2017-10-18 07:51] LABS: INR 1.1 (0.9-1.1); PROTHROMBIN TIME (PATIENT) 11.4 SECONDS (9.0-12.0)
[2017-10-18] MEDS ORDERED: LISINOPRIL 40 MG TAB PO SCH (08:00)
[2017-10-18] MEDS ORDERED: POTASSIUM CITRATE 10 MEQ TAB PO SCH (08:00)
[2017-10-18] MEDS: LORAZEPAM 0.5 MG TAB PO SCH ×2 (08:13→20:58)
[2017-10-18] MEDS: PROPRANOLOL HCL 20 MG TAB PO SCH (08:14)
[2017-10-18] MEDS: MIRABEGRON ER 25 MG TAB PO SCH (08:14)
[2017-10-18] MEDS: PENTOSAN POLYSULFATE SODIUM 100 MG CAP PO SCH ×3 (08:14→20:58)
[2017-10-18] MEDS: CYANOCOBALAMIN 500 MCG TAB (VIT B-12) PO SCH (08:15)
[2017-10-18] MEDS: MAGNESIUM OXIDE 400 MG TAB PO SCH ×2 (08:16→21:00)
[2017-10-18] MEDS: CLOPIDOGREL BISULFATE 75 MG TAB PO SCH (08:16)
[2017-10-18] MEDS: PANTOprazole SOD 40 MG TAB PO SCH ×2 (08:16→21:00)
[2017-10-18] MEDS: FERROUS SULFATE 325 MG TAB PO SCH (08:17)
[2017-10-18] MEDS: ASPIRIN 81 MG ECTAB PO SCH (08:17)
[2017-10-18 08:20] VITALS: BP 104/69; PULSE 95
[2017-10-18 08:32] LABS: BUN/CREATININE RATIO 19.2 (10-20); CALCIUM 8.9 mg/dl (8.5-10.1); CREATININE 1.92 mg/dl (0.60-1.20); POTASSIUM 4.6 mmol/L (3.5-5.1)
[2017-10-18] MEDS ORDERED: CIPROFLOXACIN CONSULT ACTIVE PRN ×2 (08:45)
[2017-10-18] MEDS: INSULIN ASPART 100 UNITS/ML 3 ML PEN SC SCH ×4 (08:57→20:56)
[2017-10-18] MEDS: HEPARIN SOD 5000 UNIT/0.5 ML CARP SQ SCH ×2 (12:45→21:07)
[2017-10-18 15:29] VITALS: BP 98/62; PULSE 93; TEMP 36.5; O2SAT 94
[2017-10-18 16:30] VITALS: O2SAT 94
[2017-10-18] MEDS: SIMVASTATIN 40 MG TAB PO SCH (20:59)
[2017-10-18] MEDS ORDERED: INSULIN GLARGINE SOLOSTAR 100 UNITS/ML 3 ML PEN SC SCH (21:00)
[2017-10-18 23:42] VITALS: BP 104/61; PULSE 83; TEMP 36.4; O2SAT 96
[2017-10-19] MEDS: METRONIDAZOLE / NSS 500 MG in PREMIXED NSS 100 ML IV SCH ×3 (01:20→17:55)
[2017-10-19] MEDS: CIPROFLOXACIN / D5W 400 MG in PREMIXED IN D5W 200 ML IV SCH (02:32)
[2017-10-19] MEDS: SODIUM CHLORIDE 0.9% 1000ML 1,000 ML IV SCH ×2 (04:13→17:57)
[2017-10-19] MEDS: HEPARIN SOD 5000 UNIT/0.5 ML CARP SQ SCH ×3 (04:15→19:47)
[2017-10-19 07:34] VITALS: BP 88/53; PULSE 80; TEMP 36.3; O2SAT 94
[2017-10-19 07:50] VITALS: O2SAT 94
[2017-10-19] MEDS: PROPRANOLOL HCL 20 MG TAB PO SCH (08:00)
[2017-10-19 08:55] LABS: CREATININE 1.67 mg/dl (0.60-1.20)
[2017-10-19] MEDS: INSULIN ASPART 100 UNITS/ML 3 ML PEN SC SCH ×4 (09:41→19:44)
[2017-10-19] MEDS: LORAZEPAM 0.5 MG TAB PO SCH ×2 (10:15→19:42)
[2017-10-19] MEDS: ASPIRIN 81 MG ECTAB PO SCH (10:16)
[2017-10-19] MEDS: MAGNESIUM OXIDE 400 MG TAB PO SCH ×2 (10:17→19:44)
[2017-10-19] MEDS: FERROUS SULFATE 325 MG TAB PO SCH (10:17)
[2017-10-19] MEDS: CLOPIDOGREL BISULFATE 75 MG TAB PO SCH (10:18)
[2017-10-19] MEDS: MIRABEGRON ER 25 MG TAB PO SCH (10:18)
[2017-10-19] MEDS: CYANOCOBALAMIN 500 MCG TAB (VIT B-12) PO SCH (10:19)
[2017-10-19] MEDS: PANTOprazole SOD 40 MG TAB PO SCH ×2 (10:19→19:43)
[2017-10-19] MEDS: PENTOSAN POLYSULFATE SODIUM 100 MG CAP PO SCH ×3 (10:34→19:43)
--- NOTE | 2017-10-19 15:03 | Progress Note ---
Subjective Date of Service: Oct 19, 2017. Subjective Pt evaluation today including: conversation w/ patient, conversation w/ family , physical exam, chart review, lab review, review of studies, review of inpatient medication list Problem List Medical Problems: (1) Chronic kidney disease Status: Acute (2) Constipation Status: Acute (3) Fecal impaction Status: Acute (4) Hyperkalemia Status: Acute (5) Proctitis Status: Acute (6) UTI (urinary tract infection) Status: Acute Review of Systems Constitutional: No see HPI, No fever, No chills, No sweats, No weight loss, No weakness, No fatigue, No problem reported Eyes: No see HPI, No worsening of vision, No eye pain, No redness, No discharge , No diplopia, No problem reported ENT: No see HPI, No hearing loss, No unusual epistaxis, No nasal symptoms, No sore throat, No tinnitus, No dental problems, No trouble swallowing, No problem reported Respiratory: No see HPI, No cough, No sputum, No wheezing, No shortness of breath, No dyspnea on exertion, No dyspnea at rest, No hemoptysis, No problem reported Cardiac: No see HPI, No chest pain, No orthopnea, No PND, No edema, No claudication, No palpitations, No problem reported Abdomen: + constipation, No see HPI, No pain, No nausea, No vomiting, No diarrhea, No GI bleeding, No problem reported Musculoskeletal: No see HPI, No joint pain, No muscle pain, No swelling, No calf pain, No problem reported Female : No see HPI, No dysuria, No urinary frequency, No hematuria, No incontinence, No abnormal vaginal bleeding, No vaginal discharge, No problem reported Neurologic: No see HPI, No memory loss, No paralysis, No weakness, No numbness/ tingling, No vertigo, No balance problems, No problem reported Psychiatric: No see HPI, No depression symptoms, No anhedonism, No anxiety, No insomnia, No substance abuse, No problem reported Heme: No see HPI, No abnormal bleeding/bruising, No clotting problems, No swollen lymph nodes, No night sweats, No problem reported Endo: No see HPI, No fatigue, No excessive thirst, No excessive urination, No problem reported Skin: No see HPI, No rash, No itch, No new/changing skin lesions, No color change, No bleeding, No problem reported Medications Current Inpatient Medications Medications (Trade) Dose Ordered Sig/Nemo Route Start Time Stop Time Status Last Admin Dose Admin Heparin Sodium (Porcine) (Heparin Sq 5000 Unit/0.5ml) 5,000 unit Q8@0400,1200,2000 SQ 10/18/17 12:00 11/17/17 11:59 10/19/17 13:33 5,000 UNIT Acetaminophen (Tylenol Tab) 650 mg Q4H PRN PO 10/17/17 23:15 11/16/17 23:14 10/18/17 18:25 650 MG Al Hydrox/Mg Hydrox/Simethicone (Maalox Max Susp) 15 ml Q4H PRN PO 10/17/17 23:15 11/16/17 23:14 Magnesium Hydroxide (Milk Of Magnesia Susp) 30 ml Q6H PRN PO 10/17/17 23:15 11/16/17 23:14 Polyethylene (Miralax Powder Packet) 17 gm DAILY PRN PO 10/17/17 23:15 11/16/17 23:14 Ondansetron HCl (Zofran Inj) 4 mg Q6H PRN IV 10/17/17 23:15 11/16/17 23:14 Insulin Aspart (novoLOG ASPART) SLIDING SCALE G... ACHS SC 10/18/17 06:30 11/17/17 06:59 10/19/17 13:33 2 UNITS Aspirin (Ecotrin Tab) 81 mg DAILY PO 10/18/17 08:00 11/17/17 08:59 10/19/17 10:16 81 MG Clopidogrel Bisulfate (plAVix TAB) 75 mg DAILY PO 10/18/17 08:00 11/17/17 08:59 10/19/17 10:18 75 MG Cyanocobalamin (Vitamin B-12 Tab) 1,000 mcg DAILY PO 10/18/17 08:00 11/17/17 08:59 10/19/17 10:19 1,000 MCG Ferrous Sulfate (Feosol Tab) 325 mg QAM PO 10/18/17 08:00 11/17/17 08:59 10/19/17 10:17 325 MG Lorazepam (Ativan Tab) 0.5 mg BID PO 10/18/17 08:00 11/17/17 08:59 10/19/17 10:15 0.5 MG Meclizine HCl (Antivert Tab) 25 mg TID PRN PO 10/17/17 23:15 11/16/17 23:14 Mirabegron (Myrbetriq Er) 50 mg DAILY PO 10/18/17 08:00 11/17/17 08:59 10/19/17 10:18 50 MG Nitroglycerin (Nitrostat Tab) 0.4 mg PRN [place] 10/17/17 23:15 11/16/17 23:14 Propranolol HCl (Inderal Tab) 20 mg DAILY PO 10/18/17 08:00 11/17/17 08:59 10/18/17 08:14 20 MG Simvastatin (Zocor Tab) 40 mg QPM PO 10/18/17 21:00 11/17/17 20:59 10/18/17 20:59 40 MG Magnesium Oxide (Mag-Ox Tab) 800 mg BID PO 10/18/17 08:00 11/17/17 08:59 10/19/17 10:17 800 MG Pantoprazole Sodium (Protonix Tab) 40 mg BID PO 10/18/17 08:00 11/17/17 08:59 10/19/17 10:19 40 MG Pentosan Polysulfate Sodium (Elmiron) 100 mg TID PO 10/18/17 08:00 11/17/17 08:59 10/19/17 10:34 100 MG Ciprofloxacin/ Dextrose 400 mg/ Prmx 200 ml @ 100 mls/hr DAILY@0200 IV 10/18/17 02:00 10/28/17 01:59 10/19/17 02:32 100 MLS/HR Metronidazole 500 mg/Prmx 100 ml @ 100 mls/hr Q8H IV 10/18/17 01:00 10/28/17 00:59 10/19/17 10:16 100 MLS/HR Bisacodyl (Dulcolax Supp) 10 mg DAILY PRN [place] 10/17/17 23:15 11/16/17 23:14 Sodium Chloride 1,000 ml @ 75 mls/hr [id number] IV 10/18/17 01:30 11/17/17 01:29 10/19/17 04:13 75 MLS/HR Glucose (Glucose 40% Gel) 15-30 GRAMS 15 GRAMS... UD PRN PO 10/17/17 23:30 11/16/17 23:29 Glucose (Glucose Chew Tab) 4-8 Tablets 4 Tabl... UD PRN PO 10/17/17 23:30 11/16/17 23:29 Dextrose (Dextrose 50% 50ML Syringe) 25-50ML OF 50% DW IV FOR... UD PRN IV 10/17/17 23:30 11/16/17 23:29 Glucagon (Glucagon Inj) 1 mg UD PRN SQ 10/17/17 23:30 11/16/17 23:29 Miconazole Nitrate (Desenex Powder) 1 appln PRN PRN EXT 10/18/17 05:30 11/17/17 05:29 Ciprofloxacin (Consult) 1 ea UD PRN N/A 10/18/17 08:45 11/17/17 08:44 Insulin Glargine (Lantus Solostar Pen) 12 units QPM SC 10/19/17 21:00 11/17/17 20:59 Lisinopril (Zestril Tab) 20 mg DAILY PO 10/20/17 08:00 11/17/17 08:59 Objective Vital Signs Date Time Temp Pulse Resp B/P (MAP) Pulse Ox O2 Delivery O2 Flow Rate FiO2 10/19/17 07:50 94 Room Air 10/19/17 07:34 36.3 80 16 88/53 (65) 94 Room Air 10/19/17 00:15 Room Air 10/18/17 23:42 36.4 83 18 104/61 (75) 96 Room Air 10/18/17 16:30 94 Room Air 10/18/17 15:29 36.5 93 16 98/62 (74) 94 Room Air Physical Exam General Appearance: no apparent distress, + obese Eyes: normal inspection, EOMI ENT: normal ENT inspection, hearing grossly normal Neck: supple, no adenopathy, thyroid normal Respiratory/Chest: chest non-tender, lungs clear, normal breath sounds, no respiratory distress, no accessory muscle use Cardiovascular: regular rate, rhythm, no edema, no gallop, no JVD, no murmur Abdomen: normal bowel sounds, non tender, soft, no organomegaly, no pulsatile mass Extremities: normal range of motion, non-tender, normal inspection, no pedal edema, no calf tenderness 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 CAT scan abdomen was positive for Mild rectal wall thickening with perirectal fat stranding. This is suspicious for stercoral proctitis Also a was suspicious for urinary tract infection Assessment stercoral proctitis UTI present on admission / suspected Hyperkalemia Constipation Hemorrhoids Acute and chronic kidney injury Chronic kidney disease stage III-V CAD, stable Type 2 diabetes mellitus insulin-requiring overactive bladder GERD chronic lower back pain anxiety/dizziness stable on meclizine when necessary Assessment Continue Flagyl/Cipro Repeat urine analysis with clean catch urine sample Basic without suppository when necessary constipation Patient had an episode of hypoglycemia this morning blood sugar of 60 She takes 22 units of Lantus at night at home but possibly she takes more calories at home We'll decrease her Lantus to 12 units tonight Continue sliding scale insulin Holding parameter for blood pressure medications Encourage exercise and upper and lower extremity range of motion in bed DVT prophylaxis: SCD, TEDs, Heparin s.c TID OT and PT evaluations ordered Level 5 DNR
[2017-10-19 16:00] VITALS: BP 114/71; PULSE 96; TEMP 36.9; O2SAT 91
[2017-10-19 16:20] VITALS: O2SAT 94
[2017-10-19] MEDS: SIMVASTATIN 40 MG TAB PO SCH (19:43)
[2017-10-19] MEDS: INSULIN GLARGINE SOLOSTAR 100 UNITS/ML 3 ML PEN SC SCH (19:48)
[2017-10-19 23:53] VITALS: BP 101/67; PULSE 78; TEMP 36.4; O2SAT 95
[2017-10-20] MEDS: METRONIDAZOLE / NSS 500 MG in PREMIXED NSS 100 ML IV SCH ×2 (00:53→09:10)
[2017-10-20] MEDS: CIPROFLOXACIN / D5W 400 MG in PREMIXED IN D5W 200 ML IV SCH (02:07)
[2017-10-20] MEDS: HEPARIN SOD 5000 UNIT/0.5 ML CARP SQ SCH ×3 (06:23→20:43)
[2017-10-20 07:21] VITALS: BP 120/84; PULSE 90; TEMP 36.5; O2SAT 96
[2017-10-20 07:30] LABS: BASO % 0.2 %; BASO ABS # 0.02 K/uL (0-0.2); COMPLETE YES; EOS % 2.4 %; HEMATOCRIT 29.3 % (37-47); IG% 0.2 %; LYMPH % 40.6 %; LYMPH ABS # 3.97 K/uL (1.2-3.4); MEAN CELL VOLUME 96.4 fL (80-100); MEAN CORPUSCULAR HEMOGLOBIN 31.9 pg (25-34); MEAN CORPUSCULAR HGB CONC 33.1 g/dl (32-36); MEAN PLATELET VOLUME 8.5 fL (7.4-10.4); MONO % 9.9 %; NEUT % 46.7 %; PLATELET COUNT 298 K/uL (130-400); RED BLOOD COUNT 3.04 M/uL (4.2-5.4); WHITE BLOOD COUNT 9.77 K/uL (4.8-10.8)
[2017-10-20 08:05] LABS: ALB/GLOB RATIO 0.6 (0.9-2); BUN/CREATININE RATIO 12.7 (10-20); CALCIUM 7.9 mg/dl (8.5-10.1); CREATININE 1.41 mg/dl (0.60-1.20); MAGNESIUM 2.1 mg/dl (1.8-2.4); PHOSPHORUS 2.3 mg/dl (2.5-4.9); POTASSIUM 3.8 mmol/L (3.5-5.1)
[2017-10-20 08:53] VITALS: BP 116/74; PULSE 84; O2SAT 96
[2017-10-20] MEDS: INSULIN ASPART 100 UNITS/ML 3 ML PEN SC SCH ×4 (08:56→20:43)
[2017-10-20 09:00] VITALS: O2SAT 96
[2017-10-20] MEDS: ASPIRIN 81 MG ECTAB PO SCH (09:03)
[2017-10-20] MEDS: LORAZEPAM 0.5 MG TAB PO SCH ×2 (09:03→20:06)
[2017-10-20] MEDS: PENTOSAN POLYSULFATE SODIUM 100 MG CAP PO SCH ×3 (09:04→20:08)
[2017-10-20] MEDS: FERROUS SULFATE 325 MG TAB PO SCH (09:04)
[2017-10-20] MEDS: PROPRANOLOL HCL 20 MG TAB PO SCH (09:05)
[2017-10-20] MEDS: MIRABEGRON ER 25 MG TAB PO SCH (09:06)
[2017-10-20] MEDS: MAGNESIUM OXIDE 400 MG TAB PO SCH ×2 (09:06→20:08)
[2017-10-20] MEDS: CYANOCOBALAMIN 500 MCG TAB (VIT B-12) PO SCH (09:07)
[2017-10-20] MEDS: PANTOprazole SOD 40 MG TAB PO SCH ×2 (09:07→20:07)
[2017-10-20] MEDS: CLOPIDOGREL BISULFATE 75 MG TAB PO SCH (09:07)
[2017-10-20] MEDS: LISINOPRIL 20 MG TAB PO SCH (09:09)
[2017-10-20] MEDS: SODIUM CHLORIDE 0.9% 1000ML 1,000 ML IV SCH ×2 (12:16→20:01)
--- NOTE | 2017-10-20 12:24 | Progress Note ---
Subjective Date of Service: Oct 20, 2017. Subjective Pt evaluation today including: conversation w/ patient, physical exam, chart review, lab review, review of inpatient medication list Problem List Medical Problems: (1) Chronic kidney disease Status: Acute (2) Constipation Status: Acute (3) Fecal impaction Status: Acute (4) Hyperkalemia Status: Acute (5) Proctitis Status: Acute (6) UTI (urinary tract infection) Status: Acute Review of Systems Constitutional: + weakness, + fatigue, No see HPI, No fever, No chills, No sweats, No weight loss, No problem reported Eyes: No see HPI, No worsening of vision, No eye pain, No redness, No discharge , No diplopia, No problem reported ENT: No see HPI, No hearing loss, No unusual epistaxis, No nasal symptoms, No sore throat, No tinnitus, No dental problems, No trouble swallowing, No problem reported Respiratory: No see HPI, No cough, No sputum, No wheezing, No shortness of breath, No dyspnea on exertion, No dyspnea at rest, No hemoptysis, No problem reported Cardiac: No see HPI, No chest pain, No orthopnea, No PND, No edema, No claudication, No palpitations, No problem reported Abdomen: No see HPI, No pain, No nausea, No vomiting, No diarrhea, No constipation, No GI bleeding, No problem reported Musculoskeletal: No see HPI, No joint pain, No muscle pain, No swelling, No calf pain, No problem reported Female : No see HPI, No dysuria, No urinary frequency, No hematuria, No incontinence, No abnormal vaginal bleeding, No vaginal discharge, No problem reported Neurologic: No see HPI, No memory loss, No paralysis, No weakness, No numbness/ tingling, No vertigo, No balance problems, No problem reported Psychiatric: No see HPI, No depression symptoms, No anhedonism, No anxiety, No insomnia, No substance abuse, No problem reported Heme: No see HPI, No abnormal bleeding/bruising, No clotting problems, No swollen lymph nodes, No night sweats, No problem reported Endo: No see HPI, No fatigue, No excessive thirst, No excessive urination, No problem reported Skin: No see HPI, No rash, No itch, No new/changing skin lesions, No color change, No bleeding, No problem reported Medications Current Inpatient Medications Medications (Trade) Dose Ordered Sig/Nemo Route Start Time Stop Time Status Last Admin Dose Admin Heparin Sodium (Porcine) (Heparin Sq 5000 Unit/0.5ml) 5,000 unit Q8@0400,1200,2000 SQ 10/18/17 12:00 11/17/17 11:59 10/20/17 06:23 5,000 UNIT Acetaminophen (Tylenol Tab) 650 mg Q4H PRN PO 10/17/17 23:15 11/16/17 23:14 10/18/17 18:25 650 MG Al Hydrox/Mg Hydrox/Simethicone (Maalox Max Susp) 15 ml Q4H PRN PO 10/17/17 23:15 11/16/17 23:14 Magnesium Hydroxide (Milk Of Magnesia Susp) 30 ml Q6H PRN PO 10/17/17 23:15 11/16/17 23:14 Polyethylene (Miralax Powder Packet) 17 gm DAILY PRN PO 10/17/17 23:15 11/16/17 23:14 Ondansetron HCl (Zofran Inj) 4 mg Q6H PRN IV 10/17/17 23:15 11/16/17 23:14 Insulin Aspart (novoLOG ASPART) SLIDING SCALE G... ACHS SC 10/18/17 06:30 11/17/17 06:59 10/19/17 13:33 2 UNITS Aspirin (Ecotrin Tab) 81 mg DAILY PO 10/18/17 08:00 11/17/17 08:59 10/20/17 09:03 81 MG Clopidogrel Bisulfate (plAVix TAB) 75 mg DAILY PO 10/18/17 08:00 11/17/17 08:59 10/20/17 09:07 75 MG Cyanocobalamin (Vitamin B-12 Tab) 1,000 mcg DAILY PO 10/18/17 08:00 11/17/17 08:59 10/20/17 09:07 1,000 MCG Ferrous Sulfate (Feosol Tab) 325 mg QAM PO 10/18/17 08:00 11/17/17 08:59 10/20/17 09:04 325 MG Lorazepam (Ativan Tab) 0.5 mg BID PO 10/18/17 08:00 11/17/17 08:59 10/20/17 09:03 0.5 MG Meclizine HCl (Antivert Tab) 25 mg TID PRN PO 10/17/17 23:15 11/16/17 23:14 Mirabegron (Myrbetriq Er) 50 mg DAILY PO 10/18/17 08:00 11/17/17 08:59 10/20/17 09:06 50 MG Nitroglycerin (Nitrostat Tab) 0.4 mg PRN [place] 10/17/17 23:15 11/16/17 23:14 Propranolol HCl (Inderal Tab) 20 mg DAILY PO 10/18/17 08:00 11/17/17 08:59 10/20/17 09:05 20 MG Simvastatin (Zocor Tab) 40 mg QPM PO 10/18/17 21:00 11/17/17 20:59 10/19/17 19:43 40 MG Magnesium Oxide (Mag-Ox Tab) 800 mg BID PO 10/18/17 08:00 11/17/17 08:59 10/20/17 09:06 800 MG Pantoprazole Sodium (Protonix Tab) 40 mg BID PO 10/18/17 08:00 11/17/17 08:59 10/20/17 09:07 40 MG Pentosan Polysulfate Sodium (Elmiron) 100 mg TID PO 10/18/17 08:00 11/17/17 08:59 10/20/17 09:04 100 MG Ciprofloxacin/ Dextrose 400 mg/ Prmx 200 ml @ 100 mls/hr DAILY@0200 IV 10/18/17 02:00 10/28/17 01:59 10/20/17 02:07 100 MLS/HR Metronidazole 500 mg/Prmx 100 ml @ 100 mls/hr Q8H IV 10/18/17 01:00 10/28/17 00:59 10/20/17 09:10 100 MLS/HR Bisacodyl (Dulcolax Supp) 10 mg DAILY PRN [place] 10/17/17 23:15 11/16/17 23:14 10/19/17 14:52 10 MG Sodium Chloride 1,000 ml @ 75 mls/hr [id number] IV 10/18/17 01:30 11/17/17 01:29 10/20/17 12:16 75 MLS/HR Glucose (Glucose 40% Gel) 15-30 GRAMS 15 GRAMS... UD PRN PO 10/17/17 23:30 11/16/17 23:29 Glucose (Glucose Chew Tab) 4-8 Tablets 4 Tabl... UD PRN PO 10/17/17 23:30 11/16/17 23:29 Dextrose (Dextrose 50% 50ML Syringe) 25-50ML OF 50% DW IV FOR... UD PRN IV 10/17/17 23:30 11/16/17 23:29 Glucagon (Glucagon Inj) 1 mg UD PRN SQ 10/17/17 23:30 11/16/17 23:29 Miconazole Nitrate (Desenex Powder) 1 appln PRN PRN EXT 10/18/17 05:30 11/17/17 05:29 Ciprofloxacin (Consult) 1 ea UD PRN N/A 10/18/17 08:45 11/17/17 08:44 Insulin Glargine (Lantus Solostar Pen) 12 units QPM SC 10/19/17 21:00 11/17/17 20:59 10/19/17 19:48 12 UNITS Lisinopril (Zestril Tab) 20 mg DAILY PO 10/20/17 08:00 11/17/17 08:59 10/20/17 09:09 20 MG Objective Vital Signs Date Time Temp Pulse Resp B/P (MAP) Pulse Ox O2 Delivery O2 Flow Rate FiO2 10/20/17 09:00 96 Room Air 10/20/17 08:53 84 20 116/74 (88) 96 Room Air 10/20/17 07:21 36.5 90 16 120/84 (96) 96 Room Air 10/20/17 00:00 Room Air 10/19/17 23:53 36.4 78 18 101/67 (78) 95 Room Air 10/19/17 20:00 Room Air 10/19/17 16:20 94 Room Air 10/19/17 16:00 36.9 96 20 114/71 (85) 91 Physical Exam General Appearance: WD/WN, no apparent distress Eyes: normal inspection, EOMI ENT: normal ENT inspection, hearing grossly normal Neck: supple Respiratory/Chest: chest non-tender, lungs clear, normal breath sounds, no respiratory distress, no accessory muscle use Cardiovascular: regular rate, rhythm, no edema, no gallop, no JVD, no murmur Abdomen: normal bowel sounds, non tender, soft, no organomegaly, no pulsatile mass Extremities: normal range of motion, non-tender, normal inspection, no pedal edema, no calf tenderness Neurologic/Psychiatric: professor/nurse anesthetist II-XII nml as tested, no motor/sensory deficits, alert, normal mood/affect, oriented x 3 Skin: normal color, warm/dry, no rash Laboratory Results Last 24 Hours Test 10/19/17 15:05 10/19/17 16:44 10/19/17 19:40 10/20/17 07:13 Procalcitonin 1.59 ng/ml Bedside Glucose 99 mg/dl 154 mg/dl White Blood Count 9.77 K/uL Red Blood Count 3.04 M/uL Hemoglobin 9.7 g/dL Hematocrit 29.3 % Mean Corpuscular Volume 96.4 fL Mean Corpuscular Hemoglobin 31.9 pg Mean Corpuscular Hemoglobin Concent 33.1 g/dl Platelet Count 298 K/uL Mean Platelet Volume 8.5 fL Neutrophils (%) (Auto) 46.7 % Lymphocytes (%) (Auto) 40.6 % Monocytes (%) (Auto) 9.9 % Eosinophils (%) (Auto) 2.4 % Basophils (%) (Auto) 0.2 % Neutrophils # (Auto) 4.56 K/uL Lymphocytes # (Auto) 3.97 K/uL Monocytes # (Auto) 0.97 K/uL Eosinophils # (Auto) 0.23 K/uL Basophils # (Auto) 0.02 K/uL RDW Standard Deviation 50.9 fL RDW Coefficient of Variation 14.6 % Immature Granulocyte % (Auto) 0.2 % Immature Granulocyte # (Auto) 0.02 K/uL Sodium Level 139 mmol/L Potassium Level 3.8 mmol/L Chloride Level 110 mmol/L Carbon Dioxide Level 20 mmol/L Anion Gap 9.0 mmol/L Blood Urea Nitrogen 18 mg/dl Creatinine 1.41 mg/dl Est Creatinine Clear Calc Drug Dose 23.3 ml/min Estimated GFR () 38.7 Estimated GFR (Non- 33.4 BUN/Creatinine Ratio 12.7 Random Glucose 106 mg/dl Calcium Level 7.9 mg/dl Phosphorus Level 2.3 mg/dl Magnesium Level 2.1 mg/dl Total Bilirubin 0.5 mg/dl Aspartate Amino Transf (AST/SGOT) 9 U/L Alanine Aminotransferase (ALT/SGPT) 8 U/L Alkaline Phosphatase 46 U/L Total Protein 5.7 gm/dl Albumin 2.2 gm/dl Globulin 3.5 gm/dl Albumin/Globulin Ratio 0.6 Test 10/20/17 07:43 10/20/17 11:35 Bedside Glucose 104 mg/dl 130 mg/dl Assessment and Plan 87 years old female presented to the ED with 5 days constipation/abdominal discomfort. CAT scan abdomen was positive for Mild rectal wall thickening with perirectal fat stranding. This is suspicious for stercoral proctitis Also a was suspicious for urinary tract infection Assessment stercoral proctitis UTI present on admission / suspected Hyperkalemia Constipation Hemorrhoids Acute and chronic kidney injury Chronic kidney disease stage III-V CAD, stable Type 2 diabetes mellitus insulin-requiring overactive bladder GERD chronic lower back pain anxiety/dizziness stable on meclizine when necessary Assessment Continue Flagyl/Cipro IV for now, can be switched to po upon discharge, referred to rehab based on PT recs, awaiting bed leukocytosis improved abdominal pain improved Repeat urine analysis with clean catch urine sample Basic without suppository when necessary constipation Patient had an episode of hypoglycemia this morning blood sugar of 60 She takes 22 units of Lantus at night at home but possibly she takes more calories at home yesterday decreased her Lantus to 12 units tonight, she is requiring less lantus , please decrease her dose of lantus upon discharge Continue sliding scale insulin Holding parameter for blood pressure medications Encourage exercise and upper and lower extremity range of motion in bed DVT prophylaxis: SCD, TEDs, Heparin s.c TID OT and PT evaluations ordered Level 5 DNR
[2017-10-20 16:00] VITALS: O2SAT 96
[2017-10-20 16:20] VITALS: BP 105/69; PULSE 90; TEMP 36.4; O2SAT 95
[2017-10-20] MEDS: METRONIDAZOLE 500 MG TAB PO SCH ×2 (16:26→20:06)
[2017-10-20] MEDS: SIMVASTATIN 40 MG TAB PO SCH (20:07)
[2017-10-20] MEDS: INSULIN GLARGINE SOLOSTAR 100 UNITS/ML 3 ML PEN SC SCH (20:43)
[2017-10-20 22:48] VITALS: BP 94/62; PULSE 84; TEMP 36.9; O2SAT 94
[2017-10-21] MEDS: HEPARIN SOD 5000 UNIT/0.5 ML CARP SQ SCH ×2 (05:06→13:02)
[2017-10-21] MEDS ORDERED: CIPROFLOXACIN 500 MG TAB PO SCH (06:00)
[2017-10-21 07:20] VITALS: BP 105/70; PULSE 87; TEMP 36.4; O2SAT 97
[2017-10-21 07:25] LABS: BASO % 0.1 %; BASO ABS # 0.01 K/uL (0-0.2); COMPLETE YES; EOS % 3.8 %; HEMATOCRIT 29.7 % (37-47); IG% 0.2 %; LYMPH % 41.4 %; MEAN CELL VOLUME 96.4 fL (80-100); MEAN CORPUSCULAR HEMOGLOBIN 32.1 pg (25-34); MEAN CORPUSCULAR HGB CONC 33.3 g/dl (32-36); MEAN PLATELET VOLUME 8.6 fL (7.4-10.4); MONO % 10.2 %; NEUT % 44.3 %; PLATELET COUNT 306 K/uL (130-400); RED BLOOD COUNT 3.08 M/uL (4.2-5.4); WHITE BLOOD COUNT 10.39 K/uL (4.8-10.8)
[2017-10-21] MEDS: LISINOPRIL 20 MG TAB PO SCH (07:44)
[2017-10-21] MEDS: LORAZEPAM 0.5 MG TAB PO SCH (07:44)
[2017-10-21] MEDS: PROPRANOLOL HCL 20 MG TAB PO SCH (07:44)
[2017-10-21] MEDS: ACETAMINOPHEN 325 MG TAB PO PRN (07:45)
[2017-10-21] MEDS: CYANOCOBALAMIN 500 MCG TAB (VIT B-12) PO SCH (07:45)
[2017-10-21] MEDS: FERROUS SULFATE 325 MG TAB PO SCH (07:45)
[2017-10-21] MEDS: PANTOprazole SOD 40 MG TAB PO SCH (07:45)
[2017-10-21] MEDS: CLOPIDOGREL BISULFATE 75 MG TAB PO SCH (07:45)
[2017-10-21] MEDS: ASPIRIN 81 MG ECTAB PO SCH (07:45)
[2017-10-21] MEDS: MIRABEGRON ER 25 MG TAB PO SCH (07:46)
[2017-10-21] MEDS: METRONIDAZOLE 500 MG TAB PO SCH (07:46)
[2017-10-21] MEDS: PENTOSAN POLYSULFATE SODIUM 100 MG CAP PO SCH (07:46)
[2017-10-21] MEDS: MAGNESIUM OXIDE 400 MG TAB PO SCH (07:47)
[2017-10-21 07:50] LABS: BUN/CREATININE RATIO 11.3 (10-20); CALCIUM 7.9 mg/dl (8.5-10.1); CREATININE 1.25 mg/dl (0.60-1.20); POTASSIUM 3.8 mmol/L (3.5-5.1)
[2017-10-21 07:53] LABS: ALB/GLOB RATIO 0.7 (0.9-2)
[2017-10-21 08:28] LABS: ESTIMATED AVERAGE GLUCOSE 154 mg/dl; HA1C FLAG Normal (Normal)
[2017-10-21] MEDS: INSULIN ASPART 100 UNITS/ML 3 ML PEN SC SCH ×2 (09:06→13:01)
[2017-10-21] MEDS: SODIUM CHLORIDE 0.9% 1000ML 1,000 ML IV SCH (12:41)
[2017-10-21 12:42] VITALS: BP 105/70; PULSE 87; TEMP 36.4; O2SAT 97
[2017-10-21] MEDS ORDERED: CPR500 PO (12:56)
[2017-10-21] MEDS ORDERED: MTR500 PO (12:56)
--- NOTE | 2017-10-21 12:58 | Discharge Instructions ---
Discharge Instructions Date of Service Oct 21, 2017. Admission Reason for Admission: Colitis, Urinary Tract Infection Discharge Discharge Diagnosis / Problem: Colitis/ Proctitis Discharge Goals Goal(s): Decrease discomfort, Improve function Activity Recommendations Activity Limitations: as noted below Lifting Limitations: gradually increase as tolerated . Instructions / Follow-Up Instructions / Follow-Up F/U with PCP in 1 week Current Hospital Diet Patient's current hospital diet: AHA Diet (Heart Healthy), Diabetes Type 2 Diet Discharge Diet Recommended Diet: AHA Diet (Heart Healthy) Pending Studies Studies pending at discharge: no Laboratory Results Hemoglobin A1c Test 10/20/17 07:13 Range/Units Estimated Average Glucose 154 mg/dl Hemoglobin A1c 7.0 H 4.5-5.6 % Medical Emergencies . Who to Call and When: Medical Emergencies: If at any time you feel your situation is an emergency, please call 911 immediately. . Non-Emergent Contact Non-Emergency issues call your: Primary Care Provider Call Non-Emergent contact if: you have a fever . . "Provider Documentation" section prepared by Elroy Brown. . VTE Core Measure Inpt VTE Proph given/why not?: Unfractionated heparin SQ
--- NOTE | 2017-10-31 16:15 | Discharge Summary ---
Discharge Summary Date of Service Oct 21, 2017. Discharge Summary Admission Date: Oct 17, 2017 at 23:12 Discharge Date: Oct 21, 2017 Discharge Disposition: Rehab Principal Diagnosis: Stercoral Prcotitis Problems/Secondary Diagnoses: UTI Immunizations: Have You Had Influenza Vaccine: No Influenza Vaccine Date: Sep 14, 2013 History of Tetanus Vaccine?: UTD History of Pneumococcal: Unknown History of Hepatitis B Vaccine: Unknown Procedures: DIAGNOSTIC IMAGING [~ rep ct add3]] ABDOMEN AND PELVIS CT WITHOUT CONTRAST CT DOSE: 341.48 mGy.cm HISTORY: constipation x 5 days, LLQ tenderness, r/o obstruction TECHNIQUE: Multiaxial CT images of the abdomen and pelvis were performed without contrast. A dose lowering technique was utilized adhering to the principles of ALARA. COMPARISON STUDY: Abdomen and pelvis CT 12/12/2011. FINDINGS: Mild interstitial thickening at the lung bases which is likely chronic. No suspicious lytic or blastic osseous lesions. Posterior decompression and fusion within the lower lumbar spine with pedicle screws and rods. Moderate hiatus hernia. The unenhanced liver, gallbladder, spleen, adrenal glands, and pancreas are unremarkable. Bilateral nephrolithiasis. No ureteral stones. No hydronephrosis. The bladder is decompressed by King catheter. The uterus and bilateral adnexa are unremarkable. No retroperitoneal lymphadenopathy. Tiny fat-containing umbilical hernia. Mild rectal wall thickening and perirectal fat stranding. Moderate sized stool ball within the rectum which measures 6 cm in diameter. Small to moderate amount well-formed stool seen throughout the colon. A 1.5 cm cyst within the upper pole of the right kidney. No evidence for bowel obstruction. Normal appendix. IMPRESSION: 1. Mild rectal wall thickening with perirectal fat stranding. This is consistent with a nonspecific proctitis and could represent a stercoral proctitis due to the stool ball within the rectum. 2. No evidence for bowel obstruction. 3. Bilateral nephrolithiasis. No hydronephrosis. 4. Moderate hiatus hernia. Medication Reconciliation New Medications: Ciprofloxacin (Ciprofloxacin HCl) 500 Mg Tab 500 MG PO DAILY@0600 for 12 Days, #12 TAB 0 Refills Take 1 tablet PO daily Metronidazole (Metronidazole) 500 Mg Tab 500 MG PO TID for 12 Days, #36 TAB Take 1 tablet PO THREE TIMES A DAY Continued Medications: Aspirin (Aspirin Ec) 81 Mg Tab 81 MG PO DAILY Clopidogrel (Plavix) 75 Mg Tab 75 MG PO DAILY, TAB Cyanocobalamin (Vitamin B-12 1000 Mcg) 1,000 Mcg Tab 1000 MCG PO DAILY, TAB Ferrous Sulfate (Ferrous Sulfate) 325 Mg Tab 325 MG PO QAM Insulin Glargine (Lantus Solostar) 100 Unit/Ml Inj 22 UNITS SC QPM, PEN Lisinopril (Zestril) 40 Mg Tab 40 MG PO DAILY, TAB Lorazepam (Lorazepam) 0.5 Mg Tab 0.5 MG PO BID Magnesium (Magnesium 250 mg) 1 Tab Tab 2 TABS PO BID Meclizine Hcl (Meclizine Hcl) 25 Mg Tab 1 TAB PO TID PRN for Dizziness or Vertigo for 10 Days, #30 TAB Metformin Hcl (Glucophage) 500 Mg Tab 500 MG PO BID, TAB Mirabegron (Myrbetriq Er) 50 Mg Tab 50 MG PO DAILY, TAB Nitroglycerin (Nitrostat) 0.4 Mg Tab 0.4 MG UT PRN, BTL Omeprazole (Prilosec) 40 Mg Cap 40 MG PO BID, CAP Pentosan Polysulfate Sodium (Elmiron) 100 Mg Cap 100 MG PO TID, CAP TAKE THIS MEDICATION THREE TIMES A DAY BEFORE MEALS. Polyethylene Glycol 3350 (Miralax) 1 Pow Pow 17 GM PO DAILY PRN for Constipation, #255 GM Potassium Citrate (Alkalinizer (Potassium Citrate ER) 1,080 Mg Tab 1 TAB PO BID for 90 Days, #180 TAB 3 Refills Propranolol (Inderal) 20 Mg Tab 20 MG PO DAILY, TAB Simvastatin (Zocor) 40 Mg Tab 40 MG PO QPM, TAB Discharge Exam Review of Systems: Constitutional: No fever, No chills Respiratory: No cough, No sputum Cardiovascular: No chest pain, No orthopnea Abdomen: No pain, No nausea Psychiatric: No depression symptoms, No anhedonism Endocrine: No fatigue Hematologic / Lymphatic: No abnormal bleeding/bruising, No clotting problems Physical Exam: General Appearance: WD/WN, no apparent distress ENT: normal ENT inspection Neck: supple, no adenopathy Respiratory/Chest: chest non-tender, lungs clear, normal breath sounds Cardiovascular: regular rate, rhythm, no edema Abdomen / GI: normal bowel sounds, non tender, soft Extremities: normal inspection Skin: normal color Lymphatic: no adenopathy Hospital Course History of Present Illness Source: patient, family (daughter) The patient is an 87-year-old female with a past medical history of coronary artery disease, type 2 diabetes, GERD, chronic back pain, overactive bladder, interstitial cystitis anxiety, who presents to the emergency department with 5 days of inability to have a bowel movement. Patient also reports feeling weak, and family note the same. The patient reports only mild abdominal pain earlier today which is now resolved. The patient denies any nausea or vomiting. The patient is usually on a daily bowel regimen with MiraLAX which she has continued to take. In addition she reports dysuria for the past 2 days and started Pyridium has not been on antibiotics. The patient denies having any fevers, chills or sweats. Appetite has been slightly diminished. The patient has significant head to toe pain which is long-standing, and in recent days his fortunately unchanged. The pain stems from chronic back issues and surgery. Unfortunately given her chronic pain, the patient is seldom ambulatory, and only walks to go to the bathroom. Otherwise it is noted by the daughter that the patient is usually confined to the bed of the couch. The patient lives at home with her oldest daughter. In the emergency room a CT scan of her abdomen was done which did show evidence of a stercoral colitis, and fecal impaction. She had a white blood cell count of 19. The UA could not be interpreted as a parent was on Pyridium and urine culture was sent. Decision was made to admit the patient for further evaluation and management. Hospital Course 87 years old female presented to the ED with 5 days constipation/abdominal discomfort. CAT scan abdomen was positive for Mild rectal wall thickening with perirectal fat stranding. This is suspicious for stercoral proctitis Also a was suspicious for urinary tract infection Assessment stercoral proctitis UTI present on admission / suspected Hyperkalemia Constipation Hemorrhoids Acute and chronic kidney injury Chronic kidney disease stage III-V CAD, stable Type 2 diabetes mellitus insulin-requiring overactive bladder GERD chronic lower back pain anxiety/dizziness stable on meclizine when necessary Assessment During Hospital Course patient was on Flagyl/Cipro IV Switched to po upon discharge leukocytosis improved abdominal pain improved Symptoms resolved and patient returned to baseline Patient will continue on antibiotics for a course of 12 more days to complete 14 days of treatment, Encourage exercise and upper and lower extremity range of motion in bed Patient will be discharged to Rehab due to PT recommendations. Total Time Spent: Greater than 30 minutes This includes examination of the patient, discharge planning, medication reconciliation, and communication with other providers. Discharge Instructions Please refer to the electronic Patient Visit Report (Discharge Instructions) for additional information. Follow-Up F/U with PCP in 10 days Additional Copies To Manjit Pearl M.D.
== END 2017-10-21 13:20 | DRG 394 ==
LOC: EDBD 19:18 → C.EDB 19:19 → C.MS4W 23:12 → EDBEDREQ 23:20 → ENRESERV 23:40
PROVIDERS: ADMIT Student in an Organized Health Care Education/Training Program; ATTEND Internal Medicine Sports Medicine
DX: K62.89 Other specified diseases of anus and rectum (principal); N39.0 Urinary tract infection, site not specified; N18.4 Chronic kidney disease, stage 4 (severe); N17.9 Acute kidney failure, unspecified; K59.00 Constipation, unspecified; N30.10 Interstitial cystitis (chronic) without hematuria; E11.9 Type 2 diabetes mellitus without complications; I25.10 Atherosclerotic heart disease of native coronary artery without angina pectoris; Z86.73 Personal history of transient ischemic attack (TIA), and cerebral infarction without residual deficits; Z87.440 Personal history of urinary (tract) infections; Z79.84 Long term (current) use of oral hypoglycemic drugs; K21.9 Gastro-esophageal reflux disease without esophagitis; N32.81 Overactive bladder; Z79.4 Long term (current) use of insulin

== ENCOUNTER 2017-11-12 09:25 | Inpatient (IN) | payer OTHER ==
[~2017-11-12] VITALS: Ht 160 cm; Wt 59.1 kg
[~2017-11-12 09:25] MED LIST changes: -ACET300T2 PO; +CPR500 PO; +GLC/500 PO; +INSDGIPEN SC; -INSUINJ4 SC; +MAGN250T3 PO; -MAGN400T6 PO; +MECL1TAB42 PO; -METF1000 PO; +MIRA1TAB3 PO; +MTR500 PO; +NTRGSL/4 UT; +POLY335019 PO; +POTA1080 PO; +SIMV40TA2 PO; -SIMV40TA4 PO; -[UNRECOGNIZED DRUG - CODE] PO
[2017-11-12] MEDS ORDERED: ONDANSETRON INJ 2 MG/ML 2 ML VIAL IV STA (09:36)
[2017-11-12] MEDS ORDERED: SODIUM CHLORIDE 0.9% 1000ML 500 ML IV STA (09:36)
[2017-11-12] MEDS ORDERED: OPTIRAY 320 IV PRN (09:45)
--- NOTE | 2017-11-12 09:58 | DIAGNOSTIC IMAGING REPORT ---
CHEST ONE VIEW PORTABLE CLINICAL HISTORY: EVALUATE ALTERED MENTAL STATUS/WEAKNESS dyspnea COMPARISON STUDY: 10/02/2013 FINDINGS: The bones soft tissues and hemidiaphragms are normal. The cardiomediastinal silhouette is normal. The lungs are clear. The pulmonary vasculature is normal. IMPRESSION: Negative chest. The above report was generated using voice recognition software. It may contain grammatical, syntax or spelling errors. Electronically signed by: Braeden Calhoun M.D. 11/12/2017 9:57 AM Dictated Date/Time: 11/12/2017 9:57 AM
--- NOTE | 2017-11-12 10:20 | EMERGENCY ROOM VISIT NOTE ---
History Report prepared by Kartik: Chapincito Blevins Under the Supervision of: Dr. Devon Krishna M.D. First contact with patient: 09:31 Chief Complaint: DIARRHEA Stated Complaint: FLU LIKE SX History of Present Illness The patient is an 87 year old female who presents to the Emergency Room with complaints of persistent diarrhea for three weeks [employer]. She reports the diarrhea has worsened since her hospital stay earlier this month. She notes that she has had two episodes of diarrhea today and her diarrhea episodes are normally in the morning. She does not feel as though eating makes her diarrhea worse. She notes that she tripped over her cane, fell, and landed on her knees last evening. She currently rates her pain a 4/10 in severity. She notes a loss of appetite, nausea, and leg weakness. She denies any LOC, head injuries, chest pain, shortness of breath, abdominal pain, and vomiting. She denies any history of C. diff. She notes that she has recently taken antibiotics. Upon review of the patient's chart, she was hospitalized and then discharge October 21, 2017--she was diagnosed with proctitis. She was prescribed Cipro and Flagyl. 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 She denies any head injuries. Review of Systems See HPI for pertinent positives & negatives. A total of 10 systems reviewed and were otherwise negative. Past Medical & Surgical Medical Problems: (1) Colitis (2) CVA (3) Diabetes mellitus (4) History of - hypertension (5) Urinary tract infection Family History Patient reports no known family medical history. Social History Smoking Status: Never Smoker Alcohol Use: none Drug Use: none Marital Status: Housing Status: lives with family Occupation Status: retired Current/Historical Medications Scheduled Acetaminophen Tab (Tylenol), 325 MG PO Q6H Aspirin (Aspirin Ec), 81 MG PO DAILY Clopidogrel (Plavix), 75 MG PO DAILY Cyanocobalamin (Vitamin B-12 1000 Mcg), 1,000 MCG PO DAILY Ferrous Sulfate (Ferrous Sulfate), 325 MG PO QAM Insulin Glargine (Lantus Solostar), 12 UNITS SC QPM Lisinopril (Zestril), 40 MG PO DAILY Lorazepam (Lorazepam), 0.5 MG PO BID Magnesium (Magnesium 250 mg), 2 TABS PO BID Metformin Hcl (Glucophage), 500 MG PO BID Mirabegron (Myrbetriq Er), 50 MG PO DAILY Nitroglycerin (Nitrostat), 0.4 MG UT PRN Omeprazole (Prilosec), 40 MG PO QAM Pentosan Polysulfate Sodium (Elmiron), 100 MG PO TID Potassium Citrate (Potassium Citrate), 10 MEQ PO BID Propranolol (Inderal), 80 MG PO DAILY Simvastatin (Zocor), 40 MG PO QPM Scheduled PRN Meclizine Hcl (Meclizine Hcl), 1 TAB PO TID PRN for Dizziness or Vertigo Polyethylene Glycol 3350 (Miralax), 17 GM PO DAILY PRN for Constipation Allergies Coded Allergies: No Known Allergies (Verified , 11/12/17) Physical Exam Vital Signs Date Time Temp Pulse Resp B/P (MAP) Pulse Ox O2 Delivery O2 Flow Rate FiO2 11/12/17 15:03 104 20 123/76 95 Room Air 11/12/17 13:15 105 20 103/72 95 Room Air 11/12/17 13:06 101 11/12/17 12:00 95 Room Air 11/12/17 11:14 99 20 107/66 99 Room Air 11/12/17 10:52 100 Room Air 11/12/17 09:42 100 11/12/17 09:31 36.4 93 18 103/72 99 Room Air Physical Exam GENERAL: Patient is in no acute distress. HEENT: No acute trauma, normocephalic atraumatic, mucous membranes moist, no nasal congestion, no scleral icterus. NECK: No stridor, no adenopathy, no meningismus, trachea is midline. LUNGS: Clear to auscultation bilaterally, no wheeze, no rhonchi, breath sounds equal. HEART: Without murmurs gallops or rubs, regular rate and rhythm. ABDOMEN: Soft, nontender, bowel sounds positive, no hernias, no peritonitis. EXTREMITIES: No cyanosis or edema, full range of motion of all the joints without pain or difficulty, no signs for acute trauma. NEUROLOGIC: Oriented x 3, no acute motor or sensory deficits, no focal weakness. SKIN: No rash, no jaundice, no diaphoresis. Pale. Medical Decision & Procedures ER Provider Diagnostic Interpretation: Radiology results as stated below per my review and radiologist interpretation: CHEST ONE VIEW PORTABLE CLINICAL HISTORY: EVALUATE ALTERED MENTAL STATUS/WEAKNESS dyspnea COMPARISON STUDY: 10/02/2013 FINDINGS: The bones soft tissues and hemidiaphragms are normal. The cardiomediastinal silhouette is normal. The lungs are clear. The pulmonary vasculature is normal. IMPRESSION: Negative chest. The above report was generated using voice recognition software. It may contain grammatical, syntax or spelling errors. Electronically signed by: Braeden Calhoun M.D. 11/12/2017 9:57 AM Dictated Date/Time: 11/12/2017 9:57 AM ABDOMEN AND PELVIS CT WITHOUT CONTRAST CT DOSE: 275.44 mGy.cm HISTORY: Generalized abdominal PAIN, POSS colitis/proctitis, NO CONTRAST TECHNIQUE: Multiaxial CT images of the abdomen and pelvis were performed without contrast. A dose lowering technique was utilized adhering to the principles of ALARA. COMPARISON STUDY: Abdomen and pelvis CT 10/17/2017. FINDINGS: Mild dependent changes seen at the lung bases. Moderate hiatus hernia, unchanged. No pneumoperitoneum. No pneumatosis. No suspicious lytic or blastic osseous lesions. Posterior decompression and fusion within the lumbar spine. The unenhanced liver, spleen, pancreas, and adrenal glands are unremarkable. Bilateral nephrolithiasis. No hydronephrosis. Normal bladder, uterus, and bilateral adnexa. No pelvic free fluid. No retroperitoneal lymphadenopathy. Mild motion artifact. 2 cm hypodense lesion within the right kidney, unchanged. This is incompletely characterize on this noncontrast study but favors a cyst. Mildly ectatic abdominal aorta. Suboptimal evaluation for bowel pathology due to the lack of intravenous and oral contrast. No bowel obstruction. Questionable thickening within the ascending colon best seen on image 169. There is minimal adjacent fat stranding and an 8 mm pericolonic lymph node. IMPRESSION: 1. Possible thickening within the mid ascending colon with minimal adjacent pericolonic fat stranding and an 8 mm lymph node. This could represent a focal nonspecific colitis. However, colonoscopy should be considered to exclude the possibility of a colonic mass. 2. The rectal wall thickening has resolved. 3. Bilateral nephrolithiasis. No hydronephrosis. Electronically signed by: Hood Perez M.D. 11/12/2017 11:41 AM Dictated Date/Time: 11/12/2017 11:31 AM Laboratory Results 11/12/17 10:20 Red Blood Count 3.54, Mean Corpuscular Volume 100.3, Mean Corpuscular Hemoglobin 33.6, Mean Corpuscular Hemoglobin Concent 33.5, Mean Platelet Volume 9.4, Neutrophils (%) (Auto) 58.6, Lymphocytes (%) (Auto) 31.3, Monocytes (%) ( Auto) 8.6, Eosinophils (%) (Auto) 1.1, Basophils (%) (Auto) 0.2, Neutrophils # ( Auto) 7.18, Lymphocytes # (Auto) 3.84, Monocytes # (Auto) 1.06, Eosinophils # ( Auto) 0.14, Basophils # (Auto) 0.02 11/12/17 10:20 Test 11/12/17 10:04 11/12/17 10:20 Urine Color YELLOW Urine Appearance CLEAR (CLEAR) Urine pH 8.5 (4.5-7.5) Urine Specific Tyler 1.021 (1.000-1.030) Urine Protein 2+ (NEG) Urine Glucose (UA) NEG (NEG) Urine Ketones TRACE (NEG) Urine Occult Blood TRACE (NEG) Urine Nitrite NEG (NEG) Urine Bilirubin NEG (NEG) Urine Urobilinogen NEG (NEG) Urine Leukocyte Esterase MODERATE (NEG) Urine WBC (Auto) >30 /hpf (0-5) Urine RBC (Auto) 5-10 /hpf (0-4) Urine Hyaline Casts (Auto) 5-10 /lpf (0-5) Urine Epithelial Cells (Auto) 10-20 /lpf (0-5) Urine Bacteria (Auto) NEG (NEG) White Blood Count 12.26 K/uL (4.8-10.8) Red Blood Count 3.54 M/uL (4.2-5.4) Hemoglobin 11.9 g/dL (12.0-16.0) Hematocrit 35.5 % (37-47) Mean Corpuscular Volume 100.3 fL (80-100) Mean Corpuscular Hemoglobin 33.6 pg (25-34) Mean Corpuscular Hemoglobin Concent 33.5 g/dl (32-36) Platelet Count 421 K/uL (130-400) Mean Platelet Volume 9.4 fL (7.4-10.4) Neutrophils (%) (Auto) 58.6 % Lymphocytes (%) (Auto) 31.3 % Monocytes (%) (Auto) 8.6 % Eosinophils (%) (Auto) 1.1 % Basophils (%) (Auto) 0.2 % Neutrophils # (Auto) 7.18 K/uL (1.4-6.5) Lymphocytes # (Auto) 3.84 K/uL (1.2-3.4) Monocytes # (Auto) 1.06 K/uL (0.11-0.59) Eosinophils # (Auto) 0.14 K/uL (0-0.5) Basophils # (Auto) 0.02 K/uL (0-0.2) RDW Standard Deviation 59.5 fL (36.4-46.3) RDW Coefficient of Variation 16.1 % (11.5-14.5) Immature Granulocyte % (Auto) 0.2 % Immature Granulocyte # (Auto) 0.02 K/uL (0.00-0.02) Prothrombin Time 9.9 SECONDS (9.0-12.0) Prothromb Time International Ratio 0.9 (0.9-1.1) Activated Partial Thromboplast Time 23.8 SECONDS (21.0-31.0) Partial Thromboplastin Ratio 0.9 Anion Gap 4.0 mmol/L (3-11) Est Creatinine Clear Calc Drug Dose 16.6 ml/min Estimated GFR () 25.8 Estimated GFR (Non- 22.3 BUN/Creatinine Ratio 18.0 (10-20) Calcium Level 9.5 mg/dl (8.5-10.1) Magnesium Level 2.2 mg/dl (1.8-2.4) Total Bilirubin 0.3 mg/dl (0.2-1) Aspartate Amino Transf (AST/SGOT) 12 U/L (15-37) Alanine Aminotransferase (ALT/SGPT) 10 U/L (12-78) Alkaline Phosphatase 61 U/L (45-117) Total Creatine Kinase 24 U/L (26-192) Troponin I < 0.015 ng/ml (0-0.045) Total Protein 7.6 gm/dl (6.4-8.2) Albumin 3.2 gm/dl (3.4-5.0) Globulin 4.4 gm/dl (2.5-4.0) Albumin/Globulin Ratio 0.7 (0.9-2) Thyroid Stimulating Hormone (TSH) 0.948 uIu/ml (0.300-4.500) Laboratory results reviewed by me. Medications Administered Medications (Trade) Dose Ordered Sig/Nemo Route Start Time Stop Time Status Last Admin Dose Admin Sodium Chloride 500 ml @ 999 mls/hr Q31M STAT IV 11/12/17 09:36 11/12/17 10:06 DC 11/12/17 10:30 999 MLS/HR Ondansetron HCl (Zofran Inj) 4 mg NOW STAT IV 11/12/17 09:36 11/12/17 09:45 DC 11/12/17 10:28 4 MG Ceftriaxone Sodium (Rocephin Inj) 1 gm NOW STAT IV 11/12/17 10:57 11/12/17 10:58 DC 11/12/17 11:38 1 GM Sodium Chloride 500 ml @ 999 mls/hr Q31M STAT IV 11/12/17 11:45 11/12/17 12:15 DC 11/12/17 12:13 999 MLS/HR Sodium Chloride 500 ml @ 999 mls/hr Q31M STAT IV 11/12/17 14:13 11/12/17 14:43 DC 11/12/17 14:13 999 MLS/HR ECG Indication: other (diarrhea ) Rate (beats per minute): 90 Rhythm: normal sinus Findings: no ectopy, other (Significant baseline artifact) ED Course 0933: The patient was evaluated in room A12B. A complete history and physical exam was performed. 0936: Ordered Zofran 4 mg IV and Sodium Chloride 500 ml @ 999 mls/hr IV 1057: Ordered Rochephin 1 gm IV 1145: Ordered Sodium Chloride 500 ml @ 999 mls/hr IV 1148: I reassessed the patient at this time. She is resting comfortably. The patient will be further evaluated. 1325: I spoke with Dr. Daria Hoang, hospitalist. We discussed the patients case. The patient will be evaluated by the [facility] for further management. Medical Decision The patient is a 87 year old female who presents to the ED with complaints of persistent diarrhea. Differential diagnoses considered include colitis or diverticulitis, recurrent proctitis, dehydration, anemia, electrolyte imbalance , UTI, and renal failure. There is a mild leukocytosis, this could be consistent with infection. No concerning anemia. Renal panel testing shows acute renal failure. No hepatitis. The patient appears to be in a euthyroid state. Urinalysis is suggestive of infection, urine culture is pending. Chest film does not show pneumonia. EKG shows a sinus rhythm, no acute ischemia. Cardiac enzyme testing 1 is not consistent with acute cardiac injury. Abdominal and pelvis CT shows potential colitis, no bowel obstruction, no proctitis. The patient received IV saline, she was given IV ceftriaxone. She received IV Zofran. With the findings of acute renal failure, with the acute UTI, with the colitis and persistent diarrhea, a hospital stay was felt warranted. I did speak to the patient and case management. The on-call hospitalist was consulted. Medication Reconcilliation Current Medication List: was personally reviewed by me Blood Pressure Screening Patient's blood pressure: Normal blood pressure Consults Time Called: 1150 Consulting Physician: Dr. Daria Hoang, hospitalist Returned Call: [address] Daria Hoang, hospitalist. We discussed the patients case. The patient will be evaluated by the [facility] for further management. Impression Primary Impression: Colitis Additional Impressions: Acute renal failure UTI (urinary tract infection) Weakness Scribe Attestation The scribe's documentation has been prepared under my direction and personally reviewed by me in its entirety. I confirm that the note above accurately reflects all work, treatment, procedures, and medical decision making performed by me. Departure Information Dispostion Being Evaluated By Hospitalist Referrals Manjit Pearl M.D. (PCP) Patient Instructions My [facility] Problem Qualifiers
[2017-11-12] MEDS ORDERED: URC10 PO (10:35)
[2017-11-12] MEDS ORDERED: PROP80TA2 PO (10:35)
[2017-11-12] MEDS ORDERED: ACET-1693 PO (10:36)
[2017-11-12 10:46] LABS: BASO % 0.2 %; BASO ABS # 0.02 K/uL (0-0.2); EOS % 1.1 %; EOS ABS # 0.14 K/uL (0-0.5); HEMATOCRIT 35.5 % (37-47); HEMOGLOBIN 11.9 g/dL (12.0-16.0); IG# 0.02 K/uL (0.00-0.02); LYMPH % 31.3 %; LYMPH ABS # 3.84 K/uL (1.2-3.4); MEAN CELL VOLUME 100.3 fL (80-100); MEAN CORPUSCULAR HEMOGLOBIN 33.6 pg (25-34); MEAN CORPUSCULAR HGB CONC 33.5 g/dl (32-36); MEAN PLATELET VOLUME 9.4 fL (7.4-10.4); MONO % 8.6 %; MONO ABS # 1.06 K/uL (0.11-0.59); NEUT % 58.6 %; NEUT ABS # 7.18 K/uL (1.4-6.5); PLATELET COUNT 421 K/uL (130-400); RED CELL DISTRIBUTION WIDTH CV 16.1 % (11.5-14.5); RED CELL DISTRIBUTION WIDTH SD 59.5 fL (36.4-46.3); WHITE BLOOD COUNT 12.26 K/uL (4.8-10.8)
[2017-11-12 10:56] LABS: INR 0.9 (0.9-1.1); PTT PATIENT 23.8 SECONDS (21.0-31.0)
[2017-11-12] MEDS ORDERED: CEFTRIAXONE SOD INJ 1 GM ADDVIAL IV STA (10:57)
[2017-11-12 11:06] LABS: ALBUMIN 3.2 gm/dl (3.4-5.0); ALT/SGPT 10 U/L (12-78); AST/SGOT 12 U/L (15-37); BLOOD UREA NITROGEN 35 mg/dl (7-18); CALCIUM 9.5 mg/dl (8.5-10.1); CARBON DIOXIDE 28 mmol/L (21-32); CREATININE 1.97 mg/dl (0.60-1.20); GLUCOSE 141 mg/dl (70-99); SODIUM 136 mmol/L (136-145)
[2017-11-12 11:17] LABS: ALKALINE PHOSPHATASE 61 U/L (45-117); TOTAL PROTEIN 7.6 gm/dl (6.4-8.2)
--- NOTE | 2017-11-12 11:43 | DIAGNOSTIC IMAGING REPORT ---
ABDOMEN AND PELVIS CT WITHOUT CONTRAST CT DOSE: 275.44 mGy.cm HISTORY: Generalized abdominal PAIN, POSS colitis/proctitis, NO CONTRAST TECHNIQUE: Multiaxial CT images of the abdomen and pelvis were performed without contrast. A dose lowering technique was utilized adhering to the principles of ALARA. COMPARISON STUDY: Abdomen and pelvis CT 10/17/2017. FINDINGS: Mild dependent changes seen at the lung bases. Moderate hiatus hernia, unchanged. No pneumoperitoneum. No pneumatosis. No suspicious lytic or blastic osseous lesions. Posterior decompression and fusion within the lumbar spine. The unenhanced liver, spleen, pancreas, and adrenal glands are unremarkable. Bilateral nephrolithiasis. No hydronephrosis. Normal bladder, uterus, and bilateral adnexa. No pelvic free fluid. No retroperitoneal lymphadenopathy. Mild motion artifact. 2 cm hypodense lesion within the right kidney, unchanged. This is incompletely characterize on this noncontrast study but favors a cyst. Mildly ectatic abdominal aorta. Suboptimal evaluation for bowel pathology due to the lack of intravenous and oral contrast. No bowel obstruction. Questionable thickening within the ascending colon best seen on image 169. There is minimal adjacent fat stranding and an 8 mm pericolonic lymph node. IMPRESSION: 1. Possible thickening within the mid ascending colon with minimal adjacent pericolonic fat stranding and an 8 mm lymph node. This could represent a focal nonspecific colitis. However, colonoscopy should be considered to exclude the possibility of a colonic mass. 2. The rectal wall thickening has resolved. 3. Bilateral nephrolithiasis. No hydronephrosis. Electronically signed by: Hood Perez M.D. 11/12/2017 11:41 AM Dictated Date/Time: 11/12/2017 11:31 AM
[2017-11-12] MEDS ORDERED: SODIUM CHLORIDE 0.9% 500ML 500 ML IV STA ×2 (11:45→14:13)
[2017-11-12 12:00] VITALS: O2SAT 95; Ht 160 cm; Wt 59.1 kg
--- NOTE | 2017-11-12 12:00 | NUR ---
A/ID: 87 year old female in ED. Recent discharge from [facility]. Refuses skin assessment at this time. Previous sacral skin issue. c/o diarrhea. Possible admission/observation. Admission Assessment done. Code Word/Fall Agreement reviewed with patient and daughter and completed. Continued care in ED by SHIKHA Mason.
[2017-11-12] MEDS ORDERED: ALUMINUM/MAGNESIUM/SIMETH (MAALOX MAX) 30 ML UDC PO PRN (14:45)
[2017-11-12] MEDS ORDERED: MAGNESIUM HYDROXIDE SUSP 30 ML UDC PO PRN (14:45)
[2017-11-12] MEDS ORDERED: NITROGLYCERIN 0.4 MG SL PER TAB CHARGE UT SCH (14:45)
[2017-11-12] MEDS ORDERED: ACETAMINOPHEN 325 MG TAB PO PRN (14:45)
[2017-11-12] MEDS ORDERED: GLUCOSE 40% GEL 15 GM TUBE PO PRN (14:45)
[2017-11-12] MEDS ORDERED: DEXTROSE 50% 50 ML SYR IV PRN (14:45)
[2017-11-12] MEDS ORDERED: GLUCAGON FOR INJ 1 MG VIAL SQ PRN (14:45)
[2017-11-12] MEDS ORDERED: ZOLPIDEM TARTRATE 5 MG TAB PO PRN (14:45)
[2017-11-12] MEDS ORDERED: MECLIZINE HCL 25 MG TAB PO PRN (14:45)
[2017-11-12] MEDS ORDERED: GLUCOSE 10 TABS/TUBE PO PRN (14:45)
[2017-11-12] MEDS ORDERED: POLYETHYLENE (MIRALAX) 17 GM PACK PO PRN (14:45)
--- NOTE | 2017-11-12 15:31 | History and Physical ---
History & Physical Date & Time of Service: Nov 12, 2017 at 15:15 Chief Complaint: Flu Like Sx Primary Care Physician: Manjit Pearl M.D. History of Present Illness Source: patient, family 87 years old female with past medical history of hypertension, diabetes, dyslipidemia and previous stroke. Beginning of October patient was admitted for proctocolitis. Was discharged on Cipro Flagyl. Patient improved and went to rehabilitation and then from rehabilitation went home. As per family they don't think that she ever improved to her baseline. Patient said that she gets intermittent diarrhea, or she stools not clinically. Denies any blood in the stool. And has severe deconditioning and weakness. Yesterday she fell on her right knee. appears to have no fracture but has pain in right knee. today she was unable to stand from sitting position due to the severe weakness. Denies any blood in the stool denies any pain with defecation. Admits to some discomfort in his abdomen Presented to the ED with family members for evaluation. CAT scan in ED showed some thickening in 1 segment of the colon suggestive of colitis Past Medical/Surgical History Medical Problems: (1) CVA Status: Resolved (2) Diabetes mellitus Status: Chronic (3) History of - hypertension Status: Chronic Family History Patient reports no known family medical history. Social History Smoking Status: Never Smoker Drug Use: none Marital Status: Housing status: lives with family Occupational Status: retired Immunizations History of Influenza Vaccine: No Influenza Vaccine Date: Sep 14, 2013 History of Tetanus Vaccine?: UTD History of Pneumococcal: Unknown History of Hepatitis B Vaccine: Unknown Multi-Drug Resistant Organisms History of MDRO: No Allergies Coded Allergies: No Known Allergies (Verified , 11/12/17) Home Medications Scheduled Acetaminophen Tab (Tylenol), 325 MG PO Q6H Aspirin (Aspirin Ec), 81 MG PO DAILY Clopidogrel (Plavix), 75 MG PO DAILY Cyanocobalamin (Vitamin B-12 1000 Mcg), 1,000 MCG PO DAILY Ferrous Sulfate (Ferrous Sulfate), 325 MG PO QAM Insulin Glargine (Lantus Solostar), 12 UNITS SC QPM Lisinopril (Zestril), 40 MG PO DAILY Lorazepam (Lorazepam), 0.5 MG PO BID Magnesium (Magnesium 250 mg), 2 TABS PO BID Metformin Hcl (Glucophage), 500 MG PO BID Mirabegron (Myrbetriq Er), 50 MG PO DAILY Nitroglycerin (Nitrostat), 0.4 MG UT PRN Omeprazole (Prilosec), 40 MG PO QAM Pentosan Polysulfate Sodium (Elmiron), 100 MG PO TID Potassium Citrate (Potassium Citrate), 10 MEQ PO BID Propranolol (Inderal), 80 MG PO DAILY Simvastatin (Zocor), 40 MG PO QPM Scheduled PRN Meclizine Hcl (Meclizine Hcl), 1 TAB PO TID PRN for Dizziness or Vertigo Polyethylene Glycol 3350 (Miralax), 17 GM PO DAILY PRN for Constipation Review of Systems Constitutional: + chills, No fever, No sweats, No weight loss, No weakness, No fatigue, No problem reported Eyes: No worsening of vision, No eye pain, No redness, No discharge, No diplopia, No problem reported ENT: No hearing loss, No unusual epistaxis, No nasal symptoms, No sore throat, No tinnitus, No dental problems, No trouble swallowing, No problem reported Respiratory: No cough, No sputum, No wheezing, No shortness of breath, No dyspnea on exertion, No dyspnea at rest, No hemoptysis, No problem reported Cardiovascular: No chest pain, No orthopnea, No PND, No edema, No claudication , No palpitations, No problem reported Abdomen: No pain, No nausea, No vomiting, No diarrhea, No constipation, No GI bleeding, No problem reported Musculoskeletal: + joint pain, No muscle pain, No swelling, No calf pain, No problem reported Genitourinary - Female: No dysuria, No urinary frequency, No urinary urgency, No urinary incontinence, No urinary retention, No hematuria, No dysmenorrhea, No menorrhagia, No metrorrhagia, No rash, No vaginal bleeding, No vaginal discharge, No vaginal itching, No vulvodynia, No , No problem reported Neurologic: + weakness, No memory loss, No paralysis, No numbness/tingling, No vertigo, No balance problems, No problem reported Psychiatric: No depression symptoms, No anhedonism, No anxiety, No insomnia, No substance abuse, No problem reported Endocrine: + fatigue, No excessive thirst, No excessive urination, No problem reported Hematologic / Lymphatic: No abnormal bleeding/bruising, No clotting problems, No swollen lymph nodes, No night sweats, No problem reported Integumentary: No rash, No itch, No new/changing skin lesions, No color change , No bleeding, No problem reported Allergic / Immunologic: No environmental allergies, No seasonal allergies, No pet sensitivities, No food allergies, No hives, No frequent infections, No poor healing, No prolonged convalescence, No problem reported Physical Exam Vital Signs Date Time Temp Pulse Resp B/P (MAP) Pulse Ox O2 Delivery O2 Flow Rate FiO2 11/12/17 13:15 105 20 103/72 95 Room Air 11/12/17 13:06 101 11/12/17 12:00 95 Room Air 11/12/17 11:14 99 20 107/66 99 Room Air 11/12/17 10:52 100 Room Air 11/12/17 09:42 100 11/12/17 09:31 36.4 93 18 103/72 99 Room Air General Appearance: WD/WN, no apparent distress Head: normocephalic, atraumatic Eyes: normal inspection, EOMI ENT: normal ENT inspection, hearing grossly normal Neck: supple Respiratory/Chest: chest non-tender, lungs clear, normal breath sounds, no respiratory distress, no accessory muscle use Cardiovascular: regular rate, rhythm, no edema, no gallop, no JVD, no murmur Abdomen/GI: normal bowel sounds, non tender, soft, no organomegaly, no pulsatile mass Back: normal inspection, no CVA tenderness Extremities/Musculoskelatal: normal inspection Neurologic/Psych: patient appointment coordinator II-XII nml as tested, no motor/sensory deficits, alert, normal mood/affect, normal reflexes, oriented x 3 Skin: normal color, warm/dry, no rash Diagnostics Laboratory Results Results Past 24 Hours Test 11/12/17 10:04 11/12/17 10:20 Range/Units Urine Color YELLOW Urine Appearance CLEAR CLEAR Urine pH 8.5 4.5-7.5 Urine Specific [place] 1.021 1.000-1.030 Urine Protein 2+ NEG Urine Glucose (UA) NEG NEG Urine Ketones TRACE NEG Urine Occult Blood TRACE NEG Urine Nitrite NEG NEG Urine Bilirubin NEG NEG Urine Urobilinogen NEG NEG Urine Leukocyte Esterase MODERATE NEG Urine WBC (Auto) >30 0-5 /hpf Urine RBC (Auto) 5-10 0-4 /hpf Urine Hyaline Casts (Auto) 5-10 0-5 /lpf Urine Epithelial Cells (Auto) 10-20 0-5 /lpf Urine Bacteria (Auto) NEG NEG White Blood Count 12.26 4.8-10.8 K/uL Red Blood Count 3.54 4.2-5.4 M/uL Hemoglobin 11.9 12.0-16.0 g/dL Hematocrit 35.5 37-47 % Mean Corpuscular Volume 100.3 80-100 fL Mean Corpuscular Hemoglobin 33.6 25-34 pg Mean Corpuscular Hemoglobin Concent 33.5 32-36 g/dl Platelet Count 421 130-400 K/uL Mean Platelet Volume 9.4 7.4-10.4 fL Neutrophils (%) (Auto) 58.6 % Lymphocytes (%) (Auto) 31.3 % Monocytes (%) (Auto) 8.6 % Eosinophils (%) (Auto) 1.1 % Basophils (%) (Auto) 0.2 % Neutrophils # (Auto) 7.18 1.4-6.5 K/uL Lymphocytes # (Auto) 3.84 1.2-3.4 K/uL Monocytes # (Auto) 1.06 0.11-0.59 K/uL Eosinophils # (Auto) 0.14 0-0.5 K/uL Basophils # (Auto) 0.02 0-0.2 K/uL RDW Standard Deviation 59.5 36.4-46.3 fL RDW Coefficient of Variation 16.1 11.5-14.5 % Immature Granulocyte % (Auto) 0.2 % Immature Granulocyte # (Auto) 0.02 0.00-0.02 K/uL Prothrombin Time 9.9 9.0-12.0 SECONDS Prothromb Time International Ratio 0.9 0.9-1.1 Activated Partial Thromboplast Time 23.8 21.0-31.0 SECONDS Partial Thromboplastin Ratio 0.9 Sodium Level 136 136-145 mmol/L Potassium Level 5.0 3.5-5.1 mmol/L Chloride Level 104 98-107 mmol/L Carbon Dioxide Level 28 21-32 mmol/L Anion Gap 4.0 3-11 mmol/L Blood Urea Nitrogen 35 7-18 mg/dl Creatinine 1.97 0.60-1.20 mg/dl Est Creatinine Clear Calc Drug Dose 16.6 ml/min Estimated GFR () 25.8 Estimated GFR (Non- 22.3 BUN/Creatinine Ratio 18.0 10-20 Random Glucose 141 70-99 mg/dl Calcium Level 9.5 8.5-10.1 mg/dl Magnesium Level 2.2 1.8-2.4 mg/dl Total Bilirubin 0.3 0.2-1 mg/dl Aspartate Amino Transf (AST/SGOT) 12 15-37 U/L Alanine Aminotransferase (ALT/SGPT) 10 12-78 U/L Alkaline Phosphatase 61 45-117 U/L Total Creatine Kinase 24 26-192 U/L Troponin I < 0.015 0-0.045 ng/ml Total Protein 7.6 6.4-8.2 gm/dl Albumin 3.2 3.4-5.0 gm/dl Globulin 4.4 2.5-4.0 gm/dl Albumin/Globulin Ratio 0.7 0.9-2 Thyroid Stimulating Hormone (TSH) 0.948 0.300-4.500 uIu/ml Microbiology Results 11/12/17 Blood Culture, Received Pending 11/12/17 Blood Culture, Received Pending 11/12/17 Urine Culture, Received Pending Impression Assessment and Plan 87 years old female with past medical history of hypertension, diabetes, dyslipidemia and previous stroke. Recently treated from prostatitis of October 21. Presented with recurrent diarrhea generalized weakness. Assessment Acute colitis UTI present on admission Generalized weakness Chronic kidney disease stage IV, currently at baseline Hypertension Dyslipidemia Spinal stenosis Plan As patient had recent antibiotic intake, will order stool studies including C. difficile Initiate empiric Flagyl/Cipro IV fluid hydration Continue supportive care Due to borderline low blood pressure at this point secondary to decrease oral intake, will hold lisinopril, will decrease propranolol dose from 80 mg to 40 mg Will also decrease Lantus dose from 12units to 6 units daily Add sliding scale insulin Continue the rest of home medications Add lactobacillus for reflexes against C. difficile Heparin subcutaneous for DVT prophylaxis Family refused physical therapy as it causes more pain for the patient due to spinal stenosis, they understand that every day she stays in bed she loses 3% of her muscle mass, patient agreed to exercise and that Add routine check supplement Advanced Directives Existing Living Will: Yes Existing Power of Associate Professor Of Surgery: Yes VTE Prophylaxis VTE Risk Assessment Done? Y/N: Yes Risk Level: Moderate
--- NOTE | 2017-11-12 15:58 | DIAGNOSTIC IMAGING REPORT ---
R KNEE 1 OR 2 VIEWS ROUTINE CLINICAL HISTORY: 87 years-old Female presenting with pain. TECHNIQUE: Frontal and lateral views of the right knee were obtained. COMPARISON: None. FINDINGS: Osteopenia. Small knee joint effusion. No acute fracture or malalignment. Mild degenerative changes evident in the patellofemoral compartment. No significant joint space loss in the medial or lateral compartments. Atherosclerosis. IMPRESSION: No acute osseous injury of the right knee. Small knee joint effusion and patellofemoral degenerative change. Electronically signed by: Manjit Whitley M.D. 11/12/2017 3:56 PM Dictated Date/Time: 11/12/2017 3:55 PM
--- NOTE | 2017-11-12 16:27 | NUR ---
A- Admitted to room 283-2. Vs Obtained, oriented to room and call hernandez. Heart monitor applied. Bed alarm on , encouraged to ring for assist
[2017-11-12 16:28] VITALS: BP 123/75; PULSE 104; TEMP 36.7; O2SAT 93
[2017-11-12] MEDS ORDERED: SODIUM CHLORIDE 0.9% 1000ML 1,000 ML IV SCH (17:15)
--- NOTE | 2017-11-12 17:44 | NUR ---
Pt screened for initiation of PO supplement. Please refer to linked assessment Addendum: 11/12/17 at [address] Amended: Links added.
[2017-11-12] MEDS: CIPROFLOXACIN / D5W 400 MG in PREMIXED IN D5W 200 ML IV SCH (17:55)
[2017-11-12] MEDS: METRONIDAZOLE 250 MG TAB PO SCH ×2 (18:04→23:11)
[2017-11-12] MEDS: ACETAMINOPHEN 325 MG TAB PO SCH (18:06)
[2017-11-12] MEDS: LACTOBACILLUS ACIDOPHILUS 1 GM PACK PO SCH (18:06)
[2017-11-12 19:49] VITALS: BP 103/54; PULSE 95; TEMP 36.5; O2SAT 93
[2017-11-12 20:00] VITALS: O2SAT 93
[2017-11-12] MEDS ORDERED: INSULIN GLARGINE SOLOSTAR 100 UNITS/ML 3 ML PEN SC SCH (21:00)
[2017-11-12] MEDS: BOOST GLUCOSE CONTROL VANILLA PO SCH (21:13)
[2017-11-12] MEDS: LORAZEPAM 0.5 MG TAB PO SCH (21:13)
[2017-11-12] MEDS: POTASSIUM CITRATE 10 MEQ TAB PO SCH (21:14)
[2017-11-12] MEDS: SIMVASTATIN 40 MG TAB PO SCH (21:14)
[2017-11-12] MEDS: INSULIN ASPART 100 UNITS/ML 3 ML PEN SC SCH (21:19)
[2017-11-12] MEDS: INSULIN GLARGINE SOLOSTAR 100 UNITS/ML 3 ML PEN SC SCH (21:20)
[2017-11-12] MEDS: HEPARIN SOD 5000 UNIT/0.5 ML CARP SQ SCH (21:21)
[2017-11-13] VITALS (8 sets, daily range): BP systolic 80–116; BP diastolic 51–75; PULSE 81–101; TEMP 36.4–36.8; O2SAT 94–98
[2017-11-13] MEDS: ACETAMINOPHEN 325 MG TAB PO SCH ×5 (00:03→23:41)
--- NOTE | 2017-11-13 00:33 | NUR ---
A/ID: Pt has been resting comfortably in bed. No complaints of pain at this time, was given scheduled dose of Tylenol per MD orders. Pt A&O X4. VSS on RA. Running NSR on monitor can be Sinus Tach at times. IVF's of NSS running at 40ml/hr in Right AC. Assessment completed see EMR. Hourly rounding maintained. Bed alarm on for safety. Will continue to monitor.
--- NOTE | 2017-11-13 03:00 | NUR ---
A: Pt sleeping in bed at this time. Running NSR on the cardiac catheterization technologist. No complaints of pain at this time. VSS. IVFs still running in right AC. Hourly rounding maintained. Will continue to monitor.
[2017-11-13] MEDS: METRONIDAZOLE 250 MG TAB PO SCH ×3 (06:26→21:04)
[2017-11-13] MEDS: INSULIN ASPART 100 UNITS/ML 3 ML PEN SC SCH ×4 (06:30→20:57)
[2017-11-13] MEDS: LORAZEPAM 0.5 MG TAB PO SCH ×2 (07:54→21:03)
[2017-11-13] MEDS: CIPROFLOXACIN / D5W 400 MG in PREMIXED IN D5W 200 ML IV SCH (07:55)
[2017-11-13] MEDS: CLOPIDOGREL BISULFATE 75 MG TAB PO SCH (07:56)
[2017-11-13] MEDS: CYANOCOBALAMIN 500 MCG TAB (VIT B-12) PO SCH (07:57)
[2017-11-13] MEDS: MIRABEGRON ER 25 MG TAB PO SCH (07:57)
[2017-11-13] MEDS: PROPRANOLOL HCL 80 MG TAB PO SCH (07:58)
[2017-11-13] MEDS: ASPIRIN 81 MG ECTAB PO SCH (07:59)
[2017-11-13] MEDS: FERROUS SULFATE 325 MG TAB PO SCH (07:59)
[2017-11-13] MEDS: LACTOBACILLUS ACIDOPHILUS 1 GM PACK PO SCH ×3 (07:59→17:00)
[2017-11-13] MEDS: POTASSIUM CITRATE 10 MEQ TAB PO SCH ×2 (07:59→21:04)
--- NOTE | 2017-11-13 08:00 | NUR ---
A: Upon initial assessment of patient, alert and oriented x4. Denies pain thus far this shift. Diarrhea noted. To collect sample. OOB with 1 assist, left side weakened from hx of cva. VSS on room air. roller printer in place. Tolerating diet fair. Call hernandez within reach. Will continue to monitor.
[2017-11-13 08:10] LABS: HEMOGLOBIN A1C 6.1 % (4.5-5.6)
[2017-11-13] MEDS: BOOST GLUCOSE CONTROL VANILLA PO SCH ×2 (08:10→21:01)
[2017-11-13] MEDS: HEPARIN SOD 5000 UNIT/0.5 ML CARP SQ SCH ×2 (08:10→21:09)
--- NOTE | 2017-11-13 08:22 | NUR ---
Received a request for a rehab screen from nursing staff due to decline in mobility. Performed an EMR review. I could not find mention of her current functional status in the nursing notes, but the H&P stated "Beginning of October patient was admitted for proctocolitis. Was discharged on Cipro Flagyl. Patient improved and went to rehabilitation and then from rehabilitation went home. As per family they don't think that she ever improved to her baseline...And has severe deconditioning and weakness. Yesterday she fell on her right knee. appears to have no fracture but has pain in right knee. today she was unable to stand from sitting position due to the severe weakness." Therefore, I feel that she could benefit from P.T./OT consults, when medically stable, to assess her current mobility and assist in the discharge planning process.
--- NOTE | 2017-11-13 08:49 | Clinical Documentation Query ---
FLETCHER Gomes : CLINICAL DOCUMENTATION QUERIES QUERY 1 OF 2 Patient is an 87 year old female admitted for evaluation and treatment of intermittent diarrhea, deconditioning, weakness. Per EMR, body weight is down 5.6 Kg or 8.8% since 10/17/17. Per electronic funds transfer coordinator consultation, reported and documented poor oral intake. Has refused PO intake this admission thus far. She is being treated with B12, Iron, potassium supplementation, IVF, I/O, and serial labs. Risk factors include age, colitis, edentulous. In your clinical opinion is this patient being managed for: ( x ) Mild protein-calorie malnutrition ( ) Moderate protein-calorie malnutrition ( ) Severe protein-calorie malnutrition ( ) Not Agree ( ) Other explanation of clinical findings (Please Explain) ( ) Unable to determine (Please Define) ( ) Need to Discuss The medical record reflects the following clinical findings, treatment, and risk factors. Clinical Indicators: As above Treatment: Edm Operator consultation, B12, Iron, potassium supplementation, IVF, I/O, and serial labs Risk Factors: age, colitis, edentulous QUERY 2 OF 2 Per prior visit, PORTABLE TRACKMAN/WOCN nurse documented a sacral stage 2 pressure ulcer. There is no documentation of integumentary impairment by attending this admission. Pressure ulcers are a patient safety indicator (PSI 03), which are potentially adverse and preventable hospital acquired events, unless specifically documented to the contrary. As appropriate, please review and document accordingly. In your clinical opinion is this patient being managed for: (x ) Pressure ulcer of sacral region, (likely) stage 2, POA ( ) Not Agree ( ) Other explanation of clinical findings (Please Explain) ( ) Unable to determine (Please Define) ( ) Need to Discuss The medical record reflects the following clinical findings, treatment, and risk factors. Clinical Indicators: As above Treatment: Barrier dressing Risk Factors: Age, immobility Please clarify and document your clinical opinion in the progress notes and discharge summary. Terms such as "probable", "suspected", "likely", "questionable", "possible", or "still to be ruled out" are acceptable. IF IN AGREEMENT, YOU MUST DOCUMENT ABOVE DIAGNOSTIC STATEMENT IN DAILY PROGRESS NOTES AND DISCHARGE SUMMARY. This document is not part of the patient's record. Thank You, Zach Best, RN [phone]
[2017-11-13] MEDS ORDERED: LISINOPRIL 40 MG TAB PO SCH (09:00)
[2017-11-13] MEDS ORDERED: PROPRANOLOL HCL 80 MG TAB PO SCH (09:00)
[2017-11-13 10:37] LABS: BASO % 0.3 %; BASO ABS # 0.03 K/uL (0-0.2); EOS % 1.7 %; EOS ABS # 0.15 K/uL (0-0.5); HEMATOCRIT 31.6 % (37-47); HEMOGLOBIN 10.2 g/dL (12.0-16.0); IG# 0.03 K/uL (0.00-0.02); LYMPH % 32.5 %; LYMPH ABS # 2.88 K/uL (1.2-3.4); MEAN CELL VOLUME 100.6 fL (80-100); MEAN CORPUSCULAR HEMOGLOBIN 32.5 pg (25-34); MEAN CORPUSCULAR HGB CONC 32.3 g/dl (32-36); MEAN PLATELET VOLUME 9.2 fL (7.4-10.4); MONO % 10.4 %; MONO ABS # 0.92 K/uL (0.11-0.59); NEUT % 54.8 %; NEUT ABS # 4.86 K/uL (1.4-6.5); PLATELET COUNT 304 K/uL (130-400); RED CELL DISTRIBUTION WIDTH CV 16.3 % (11.5-14.5); RED CELL DISTRIBUTION WIDTH SD 60.1 fL (36.4-46.3); WHITE BLOOD COUNT 8.87 K/uL (4.8-10.8)
[2017-11-13 11:01] LABS: CALCIUM 8.6 mg/dl (8.5-10.1); CREATININE 1.53 mg/dl (0.60-1.20); POTASSIUM 4.5 mmol/L (3.5-5.1)
--- NOTE | 2017-11-13 12:00 | NUR ---
A: Upon initial assessment of patient, alert and oriented x4. Denies pain thus far, prn tylenol administered per routine order. OOB with 1 assist to bsc. Tolerating diet fair. registered nurses in place, vss on room air. IVF infusing per md order. Will continue to monitor.
--- NOTE | 2017-11-13 13:41 | NUR ---
Discharge planning consult received. She is also a 30 day readmission. I spoke with the patient at bedside, she is alert and oriented x 3. She states that she lives with her daughter in their own home. She was just recently at [facility] for rehab and then discharged to home. She currently uses a walker and cane as needed. She states that she does not have home health services. Her daughter assists with needs. Her plan is to return to home at discharge. Patient would benefit from pt/ot evals. Case management to follow. Addendum: 11/13/17 at 1529 by [place] [facility] I spoke with the family regarding discharge options. Pauline requests a referral be made to [facility], referral made. Patient agrees with this. Await determination.
--- NOTE | 2017-11-13 16:00 | NUR ---
A: Unchanged assessment from previous note. OOB with 1 assist to bsc. IVF infusing per md order. Tolerating diet fair. VSS on room air, director cardiac in place. Family currently at bedside. Family spoke with case management and md regarding discharge planning. Will continue to monitor.
--- NOTE | 2017-11-13 16:03 | Progress Note ---
Subjective Date of Service: Nov 13, 2017. Subjective Pt evaluation today including: conversation w/ patient, physical exam, lab review, review of inpatient medication list Pain: no pain PO Intake: light diet Voiding: no voiding problems patient feeling better, less fatigued 2 loose BM today, reviewed tests, negative for C diff discussed results with family, discussed findings on CT scan about perhaps needing colonoscopy for lesion in ascending colon will request GI consultation for recommendations no WBC on stool smear Problem List Medical Problems: (1) Acute renal failure Status: Acute (2) Chronic kidney disease Status: Acute (3) Constipation Status: Acute (4) Fecal impaction Status: Acute (5) Hyperkalemia Status: Acute (6) Proctitis Status: Acute (7) UTI (urinary tract infection) Status: Acute (8) Weakness Status: Acute Review of Systems Constitutional: + weakness, + fatigue Abdomen: + diarrhea All Other Systems: Reviewed and Negative Medications Current Inpatient Medications Medications (Trade) Dose Ordered Sig/Nemo Route Start Time Stop Time Status Last Admin Dose Admin Acetaminophen (Tylenol Tab) 325 mg Q6 PO 11/12/17 18:00 12/12/17 17:59 11/13/17 11:38 325 MG Aspirin (Ecotrin Tab) 81 mg DAILY PO 11/13/17 09:00 12/13/17 08:59 11/13/17 07:59 81 MG Clopidogrel Bisulfate (plAVix TAB) 75 mg DAILY PO 11/13/17 09:00 12/13/17 08:59 11/13/17 07:56 75 MG Cyanocobalamin (Vitamin B-12 Tab) 1,000 mcg DAILY PO 11/13/17 09:00 12/13/17 08:59 11/13/17 07:57 1,000 MCG Ferrous Sulfate (Feosol Tab) 325 mg QAM PO 11/13/17 09:00 12/13/17 08:59 11/13/17 07:59 325 MG Lorazepam (Ativan Tab) 0.5 mg BID PO 11/12/17 21:00 12/12/17 20:59 11/13/17 07:54 0.5 MG Meclizine HCl (Antivert Tab) 25 mg TID PRN PO 11/12/17 14:45 12/12/17 14:44 Mirabegron (Myrbetriq Er) 50 mg DAILY PO 11/13/17 09:00 12/13/17 08:59 11/13/17 07:57 50 MG Nitroglycerin (Nitrostat Tab) 0.4 mg PRN UT 11/12/17 14:45 12/12/17 14:44 Potassium Citrate (Urocit-K Tab) 10 meq BID PO 11/12/17 21:00 12/12/17 20:59 11/13/17 07:59 10 MEQ Simvastatin (Zocor Tab) 40 mg QPM PO 11/12/17 21:00 12/12/17 20:59 11/12/17 21:14 40 MG Heparin Sodium (Porcine) (Heparin Sq 5000 Unit/0.5ml) 5,000 unit Q12 SQ 11/12/17 21:00 12/12/17 20:59 11/13/17 08:10 5,000 UNIT Sodium Chloride 1,000 ml @ 40 mls/hr Q24H IV 11/12/17 17:15 11/13/17 17:14 11/12/17 17:55 40 MLS/HR Acetaminophen (Tylenol Tab) 650 mg Q4H PRN PO 11/12/17 14:45 12/12/17 14:44 Al Hydrox/Mg Hydrox/Simethicone (Maalox Max Susp) 15 ml Q4H PRN PO 11/12/17 14:45 12/12/17 14:44 Magnesium Hydroxide (Milk Of Magnesia Susp) 30 ml Q12H PRN PO 11/12/17 14:45 12/12/17 14:44 Zolpidem Tartrate (Ambien Tab) 5 mg HSZ PRN PO 11/12/17 14:45 12/12/17 14:44 11/13/17 00:03 5 MG Ondansetron HCl (Zofran Inj) 4 mg Q6H PRN IV 11/12/17 14:45 12/12/17 14:44 Polyethylene (Miralax Powder Packet) 17 gm DAILY PRN PO 11/12/17 14:45 12/12/17 14:44 Insulin Aspart (novoLOG ASPART) SLIDING SCALE If C... ACHS SC 11/12/17 21:00 12/12/17 20:59 11/13/17 12:49 4 UNITS Glucose (Glucose 40% Gel) 15-30 GRAMS 15 GRAMS... UD PRN PO 11/12/17 14:45 12/12/17 14:44 Glucose (Glucose Chew Tab) 4-8 Tablets 4 Tabl... UD PRN PO 11/12/17 14:45 12/12/17 14:44 Dextrose (Dextrose 50% 50ML Syringe) 25-50ML OF 50% DW IV FOR... UD PRN IV 11/12/17 14:45 12/12/17 14:44 Glucagon (Glucagon Inj) 1 mg UD PRN SQ 11/12/17 14:45 12/12/17 14:44 Ciprofloxacin/ Dextrose 400 mg/ Prmx 200 ml @ 100 mls/hr QAM IV 11/12/17 17:15 11/22/17 17:14 11/13/17 07:55 100 MLS/HR Metronidazole (Flagyl Tab) 500 mg Q8@0600,1400,2200 PO 11/12/17 17:30 11/22/17 17:29 11/13/17 14:04 500 MG Lactobacillus Acidophilus (Lactinex Granules Pack) 1 gm TIDM PO 11/12/17 17:00 12/12/17 17:59 11/13/17 07:59 1 GM Insulin Glargine (Lantus Solostar Pen) 6 units QPM SC 11/12/17 21:00 12/12/17 20:59 11/12/17 21:20 6 UNITS Propranolol HCl (Inderal Tab) 40 mg DAILY PO 11/13/17 09:00 12/13/17 08:59 11/13/17 07:58 40 MG Enteral Nutritional Formula (Boost Glucose Control) 1 can BID PO 11/12/17 21:00 12/12/17 20:59 11/13/17 08:10 1 CAN Objective Vital Signs Date Time Temp Pulse Resp B/P (MAP) Pulse Ox O2 Delivery O2 Flow Rate FiO2 11/13/17 14:34 36.8 90 18 107/72 (84) 96 Room Air 11/13/17 12:00 Room Air 11/13/17 11:42 36.7 85 16 91/57 (68) 95 Room Air 11/13/17 08:00 Room Air 11/13/17 07:54 101 116/75 (89) 11/13/17 07:51 36.6 95 16 93/51 (65) 98 Room Air 11/13/17 04:38 36.4 101 17 91/57 (68) 94 Room Air 11/13/17 02:53 Room Air 11/13/17 00:18 99 95/63 (74) 11/13/17 00:06 36.5 98 18 80/53 (62) 98 Room Air 11/12/17 23:00 Room Air 11/12/17 20:00 93 Room Air 11/12/17 19:49 36.5 95 16 103/54 (70) 93 Room Air 11/12/17 16:28 36.7 104 17 123/75 (91) 93 Physical Exam General Appearance: WD/WN, no apparent distress Eyes: normal inspection, EOMI, sclerae normal ENT: normal ENT inspection, hearing grossly normal, pharynx normal Neck: supple, no adenopathy, no JVD, trachea midline Respiratory/Chest: chest non-tender, lungs clear, normal breath sounds, no respiratory distress, no accessory muscle use Cardiovascular: regular rate, rhythm, no edema, no gallop, no JVD, no murmur Abdomen: normal bowel sounds, non tender, soft, no organomegaly Extremities: normal range of motion, non-tender, normal inspection, no pedal edema, no calf tenderness, pelvis stable Neurologic/Psychiatric: jd edwards II-XII nml as tested, no motor/sensory deficits, alert, normal mood/affect, oriented x 3 Skin: normal color, warm/dry, no rash Laboratory Results Last 24 Hours Test 11/12/17 16:51 11/12/17 17:20 11/12/17 21:03 11/13/17 00:00 Bedside Glucose 91 mg/dl 162 mg/dl Urine Color YELLOW Urine Appearance CLEAR Urine pH 7.0 Urine Specific Dresher 1.018 Urine Protein 1+ Urine Glucose (UA) NEG Urine Ketones TRACE Urine Occult Blood TRACE Urine Nitrite NEG Urine Bilirubin NEG Urine Urobilinogen NEG Urine Leukocyte Esterase MODERATE Urine WBC (Auto) >30 /hpf Urine RBC (Auto) 0-4 /hpf Urine Hyaline Casts (Auto) 1-5 /lpf Urine Epithelial Cells (Auto) >30 /lpf Urine Bacteria (Auto) 1+ Urine Renal Epithelial Cells /lpf Test 11/13/17 06:56 11/13/17 07:00 11/13/17 07:42 11/13/17 10:16 Estimated Average Glucose 128 mg/dl Hemoglobin A1c 6.1 % Lactic Acid Level 1.0 mmol/L Bedside Glucose 106 mg/dl White Blood Count 8.87 K/uL Red Blood Count 3.14 M/uL Hemoglobin 10.2 g/dL Hematocrit 31.6 % Mean Corpuscular Volume 100.6 fL Mean Corpuscular Hemoglobin 32.5 pg Mean Corpuscular Hemoglobin Concent 32.3 g/dl Platelet Count 304 K/uL Mean Platelet Volume 9.2 fL Neutrophils (%) (Auto) 54.8 % Lymphocytes (%) (Auto) 32.5 % Monocytes (%) (Auto) 10.4 % Eosinophils (%) (Auto) 1.7 % Basophils (%) (Auto) 0.3 % Neutrophils # (Auto) 4.86 K/uL Lymphocytes # (Auto) 2.88 K/uL Monocytes # (Auto) 0.92 K/uL Eosinophils # (Auto) 0.15 K/uL Basophils # (Auto) 0.03 K/uL RDW Standard Deviation 60.1 fL RDW Coefficient of Variation 16.3 % Immature Granulocyte % (Auto) 0.3 % Immature Granulocyte # (Auto) 0.03 K/uL Sodium Level 136 mmol/L Potassium Level 4.5 mmol/L Chloride Level 107 mmol/L Carbon Dioxide Level 23 mmol/L Anion Gap 6.0 mmol/L Blood Urea Nitrogen 26 mg/dl Creatinine 1.53 mg/dl Est Creatinine Clear Calc Drug Dose 21.4 ml/min Estimated GFR () 35.1 Estimated GFR (Non- 30.3 BUN/Creatinine Ratio 16.9 Random Glucose 243 mg/dl Calcium Level 8.6 mg/dl Test 11/13/17 11:32 Bedside Glucose 217 mg/dl Assessment and Plan 87 yo female with recurrent colitis with possible lesion in ascending colon - Colitis with diarrhea: 2-3 loose stools every day, ongoing for a month now according to patient and family WBC smear negative, less likely infectious C diff negative continue cipro and flagyl for now ask GI to give recommendations about ascending colon thickening discussed with family, she has a history of pre-cancerous polyps, last colonoscopy was many years ago, easily more than a decade not sure if she would want to pursue a colonoscopy given her age - Dehydration: improving with IV fluids, more energy today, continue fluids through tomorrow - Mild protein calorie malnutrition due to poor intake and diarrhea for a month - Pressure ulcer of sacral lesion, 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 2, POA wound care, frequent turning - UTI, POA: streptococcus, WBC now normal - HTN: BP running low normal - CKD stage IV: Cr at baseline, UO improved with fluids plan for [facility], will discuss with patient tomorrow Level 5, DNR
[2017-11-13] MEDS: SIMVASTATIN 40 MG TAB PO SCH (21:04)
[2017-11-13] MEDS: INSULIN GLARGINE SOLOSTAR 100 UNITS/ML 3 ML PEN SC SCH (21:10)
--- NOTE | 2017-11-14 | NUR ---
A: Patient resting in bed. Alert and oriented x 4. Denies chest pain and shortness of breath. Denies pain at this time. VSS. Sinus rhythm on boiler maker. Lungs clear on room air. Right knee bruised, buttocks purple, prevention foam/Optifoam intact. One assist out of bed. Bed alarm on for safety. Possible discharge to [facility]. Will continue to monitor.
[2017-11-14 00:18] VITALS: BP 106/67; PULSE 88; TEMP 36.4; O2SAT 95
--- NOTE | 2017-11-14 01:14 | GASTROINTESTINAL CONSULTATION ---
DATE OF CONSULTATION: 11/13/2017 CHIEF COMPLAINT: Diarrhea. HISTORY OF PRESENT ILLNESS: Mrs. Mejia is an 87-year-old white female admitted to the hospital on November 12 with ongoing diarrhea. The patient was seen in the hospital in September and hospitalized for several days for what ultimately was an impacted stool in the rectum that led to the rectal thickening. There was also stool throughout the colon on that CT image from late September. The patient was discharged after some improvement and placed on Flagyl and Cipro and was discharged to rehabilitation. At that point, it is unclear if the patient had any improvement in her diarrhea. There are no reports of blood or any significant pain aside from the diarrhea described above. On evaluation in the Emergency Room during this hospitalization, there are changes in the mid descending colon that showed thickening of the colon, although a mass cannot be fully excluded. The changes in the rectum seemed to have diminished from the September study. The patient denies any fever or shaking chills. PAST MEDICAL HISTORY: Significant for CVA, chronic diabetes, hypertension. FAMILY HISTORY: Noncontributory. There is no reported colorectal cancer per patient. SOCIAL HISTORY: The patient denies tobacco or alcohol usage. She lives with her family. ALLERGIES: She has no known drug allergies. HOME MEDICATIONS: Include aspirin, Plavix, vitamin B12, iron tablets, insulin, lisinopril, lorazepam, magnesium, metformin, Mirabegron, nitroglycerin, omeprazole, Elmiron, potassium citrate, propranolol, and simvastatin. REVIEW OF SYSTEMS: Otherwise noncontributory based on 13-point exam except for mentioned above. There is no melena or bright red blood per rectum, hematemesis or coffee-ground emesis, nausea, vomiting or abdominal pain. LABORATORY STUDIES: On admission revealed a white count of 12.2, hemoglobin 11.9, MCV 100, platelets 421,000. INR is 0.9, PTT 23.8, potassium 5.0, BUN and creatinine of 35 and 1.97, alkaline phosphatase 61. Troponin 0.015. AST 12, ALT 10. TSH normal at 0.94, albumin 3.2. PHYSICAL EXAMINATION: GENERAL: Today, the patient is awake, alert and oriented to place and person. SKIN: Intact and dry. NECK: Normal range of motion. HEENT: Sclerae are anicteric. Conjunctiva moist. Oral mucosa moist. NECK: There is no cervical or supraclavicular adenopathy. I do not appreciate thyromegaly. HEART: Normal S1, S2. LUNGS: Clear to auscultation without rales, rhonchi or wheezes. ABDOMEN: Soft, flat, nontender, nondistended with normal active bowel sounds. No rebound or guarding. I do not appreciate hepatosplenomegaly. EXTREMITIES: The extremities show normal range of motion. Without clubbing, cyanosis or edema. RECTAL: Deferred at this time. IMPRESSION AND PLAN: The patient with recurrent diarrhea or persistent diarrhea with evidence of a CT abnormality suggesting possible colitis in the mid ascending colon, although a mass cannot be fully excluded. Her stool studies today revealed fecal white blood cells, which were numerous, but C. diff was negative. Other stool studies are pending at this time including routine cultures. Other markers including Giardia and stool for H. pylori are also pending. The patient is understandably apprehensive about undergoing a bowel prep and colonoscopy and I did have a chance to speak with her daughter, Pauline, who also shares a similar concern. In the past when she has had a colonoscopy many years ago, she struggled with the bowel preps. The patient would like her family to help in the decision making and the patient's daughter, Pauline, would like to discuss this with her brother and other family members to see if they wish to pursue this. We did briefly discuss the importance of doing this as it may help better direct a formal and an appropriate course of therapy. They will discuss tomorrow and if they agree, we will plan for a colonoscopy on Saturday with bowel prep tomorrow afternoon. Would follow stool cultures. The CT, which was a noncontrast study may be limited. However, they did not comment that there is a significant stool burden on this imaging study unlike the October 17 CT. All questions answered. We will await the decision from the patient's family. Thank you for allowing me to participate in this patient's care. BRIAN
[2017-11-14 04:00] VITALS: BP 103/64; PULSE 88; TEMP 36.4; O2SAT 93
--- NOTE | 2017-11-14 04:00 | NUR ---
A: Patient sleeping. Assessment unchanged. Will continue to monitor.
[2017-11-14] MEDS: INSULIN ASPART 100 UNITS/ML 3 ML PEN SC SCH ×4 (06:30→20:32)
[2017-11-14] MEDS: METRONIDAZOLE 250 MG TAB PO SCH (06:32)
[2017-11-14] MEDS: ACETAMINOPHEN 325 MG TAB PO SCH ×4 (06:33→23:42)
[2017-11-14] MEDS: LACTOBACILLUS ACIDOPHILUS 1 GM PACK PO SCH (08:00)
--- NOTE | 2017-11-14 08:00 | NUR ---
A: Upon initial assessment of patient, alert and oriented x4. Contact precautions in place. VSS on room air, panel monitor in place. Refused diet this am as well as boost drink. OOB with 1 assist to bsc. Preventative dressing to sacrum. Call hernandez within reach. Will continue to monitor.
[2017-11-14 08:01] VITALS: BP 119/77; PULSE 76; TEMP 36.5; O2SAT 95
[2017-11-14] MEDS: BOOST GLUCOSE CONTROL VANILLA PO SCH ×2 (08:15→20:35)
[2017-11-14] MEDS: LORAZEPAM 0.5 MG TAB PO SCH ×2 (08:16→20:32)
[2017-11-14] MEDS: HEPARIN SOD 5000 UNIT/0.5 ML CARP SQ SCH ×2 (08:16→21:34)
[2017-11-14] MEDS: CIPROFLOXACIN / D5W 400 MG in PREMIXED IN D5W 200 ML IV SCH (08:17)
[2017-11-14] MEDS: CYANOCOBALAMIN 500 MCG TAB (VIT B-12) PO SCH (08:17)
[2017-11-14] MEDS: ASPIRIN 81 MG ECTAB PO SCH (08:17)
[2017-11-14] MEDS: FERROUS SULFATE 325 MG TAB PO SCH (08:17)
[2017-11-14] MEDS: POTASSIUM CITRATE 10 MEQ TAB PO SCH ×2 (08:19→20:55)
[2017-11-14] MEDS: PROPRANOLOL HCL 80 MG TAB PO SCH (08:19)
[2017-11-14] MEDS: MIRABEGRON ER 25 MG TAB PO SCH (08:21)
[2017-11-14] MEDS: CLOPIDOGREL BISULFATE 75 MG TAB PO SCH (08:23)
--- NOTE | 2017-11-14 10:13 | NUR ---
A: Patient taken off telemetry at this time.
[2017-11-14] MEDS ORDERED: NURSING VERBAL MED ORDER ONE (10:15)
[2017-11-14 11:42] VITALS: BP 120/77; PULSE 85; TEMP 36.4; O2SAT 96
[2017-11-14] MEDS ORDERED: LOPERAMIDE HCL 2 MG CAP PO PRN (12:15)
--- NOTE | 2017-11-14 12:57 | NUR ---
Discharge planning. I spoke with Riddhi at [facility] who states that she can accept patient when medically stable. I notified family with update. They would like case management to arrange for transportation. No additional needs at this time. Will continue to follow.
--- NOTE | 2017-11-14 14:23 | Progress Note ---
Subjective Date of Service: Nov 14, 2017. Subjective Pt evaluation today including: conversation w/ patient, conversation w/ family (daughter, grand children), physical exam, lab review, conversation w/ data power consultant, review of inpatient medication list Pain: no pain PO Intake: adequate Voiding: no voiding problems patient was anxious, was worried about having a colonoscopy explained that she and her family needed to discuss possible colonoscopy and if they wanted to proceed would perform tomorrow long talk with patient and her family in the room, discussed pros and cons of the colonoscopy and the risks discussed that we wanted to evaluate the lesion in the ascending colon, rule out a tumor explained that performing the colonoscopy would not cure her diarrhea, only provide a chance to make a potential diagnosis discussed further, even if the lesion was found to be cancer, she would never want chemo or surgery for these reasons, she and her family decided against the colonoscopy I let Dr. Grant know of their decision will try Imodium for symptom relief she agrees to go to [facility] once stable Problem List Medical Problems: (1) Acute renal failure Status: Acute (2) Chronic kidney disease Status: Acute (3) Constipation Status: Acute (4) Fecal impaction Status: Acute (5) Hyperkalemia Status: Acute (6) Proctitis Status: Acute (7) UTI (urinary tract infection) Status: Acute (8) Weakness Status: Acute Review of Systems Abdomen: + diarrhea (only one loose stool today) All Other Systems: Reviewed and Negative Medications Current Inpatient Medications Medications (Trade) Dose Ordered Sig/Nemo Route Start Time Stop Time Status Last Admin Dose Admin Acetaminophen (Tylenol Tab) 325 mg Q6 PO 11/12/17 18:00 12/12/17 17:59 11/14/17 12:32 325 MG Aspirin (Ecotrin Tab) 81 mg DAILY PO 11/13/17 09:00 12/13/17 08:59 11/14/17 08:17 81 MG Clopidogrel Bisulfate (plAVix TAB) 75 mg DAILY PO 11/13/17 09:00 12/13/17 08:59 11/14/17 08:23 75 MG Cyanocobalamin (Vitamin B-12 Tab) 1,000 mcg DAILY PO 11/13/17 09:00 12/13/17 08:59 11/14/17 08:17 1,000 MCG Ferrous Sulfate (Feosol Tab) 325 mg QAM PO 11/13/17 09:00 12/13/17 08:59 11/14/17 08:17 325 MG Lorazepam (Ativan Tab) 0.5 mg BID PO 11/12/17 21:00 12/12/17 20:59 11/14/17 08:16 0.5 MG Meclizine HCl (Antivert Tab) 25 mg TID PRN PO 11/12/17 14:45 12/12/17 14:44 Mirabegron (Myrbetriq Er) 50 mg DAILY PO 11/13/17 09:00 12/13/17 08:59 11/14/17 08:21 50 MG Nitroglycerin (Nitrostat Tab) 0.4 mg PRN UT 11/12/17 14:45 12/12/17 14:44 Potassium Citrate (Urocit-K Tab) 10 meq BID PO 11/12/17 21:00 12/12/17 20:59 11/14/17 08:19 10 MEQ Simvastatin (Zocor Tab) 40 mg QPM PO 11/12/17 21:00 12/12/17 20:59 11/13/17 21:04 40 MG Heparin Sodium (Porcine) (Heparin Sq 5000 Unit/0.5ml) 5,000 unit Q12 SQ 11/12/17 21:00 12/12/17 20:59 11/14/17 08:16 5,000 UNIT Acetaminophen (Tylenol Tab) 650 mg Q4H PRN PO 11/12/17 14:45 12/12/17 14:44 Al Hydrox/Mg Hydrox/Simethicone (Maalox Max Susp) 15 ml Q4H PRN PO 11/12/17 14:45 12/12/17 14:44 Magnesium Hydroxide (Milk Of Magnesia Susp) 30 ml Q12H PRN PO 11/12/17 14:45 12/12/17 14:44 Zolpidem Tartrate (Ambien Tab) 5 mg HSZ PRN PO 11/12/17 14:45 12/12/17 14:44 11/13/17 00:03 5 MG Ondansetron HCl (Zofran Inj) 4 mg Q6H PRN IV 11/12/17 14:45 12/12/17 14:44 Polyethylene (Miralax Powder Packet) 17 gm DAILY PRN PO 11/12/17 14:45 12/12/17 14:44 Insulin Aspart (novoLOG ASPART) SLIDING SCALE If C... ACHS SC 11/12/17 21:00 12/12/17 20:59 11/13/17 12:49 4 UNITS Glucose (Glucose 40% Gel) 15-30 GRAMS 15 GRAMS... UD PRN PO 11/12/17 14:45 12/12/17 14:44 Glucose (Glucose Chew Tab) 4-8 Tablets 4 Tabl... UD PRN PO 11/12/17 14:45 12/12/17 14:44 Dextrose (Dextrose 50% 50ML Syringe) 25-50ML OF 50% DW IV FOR... UD PRN IV 11/12/17 14:45 12/12/17 14:44 Glucagon (Glucagon Inj) 1 mg UD PRN SQ 11/12/17 14:45 12/12/17 14:44 Insulin Glargine (Lantus Solostar Pen) 6 units QPM SC 11/12/17 21:00 12/12/17 20:59 11/13/17 21:10 6 UNITS Propranolol HCl (Inderal Tab) 40 mg DAILY PO 11/13/17 09:00 12/13/17 08:59 11/14/17 08:19 40 MG Enteral Nutritional Formula (Boost Glucose Control) 1 can BID PO 11/12/17 21:00 12/12/17 20:59 11/13/17 21:01 1 CAN Loperamide HCl (Imodium Cap) 2 mg Q4 PRN PO 11/14/17 12:15 12/14/17 12:14 Objective Vital Signs Date Time Temp Pulse Resp B/P (MAP) Pulse Ox O2 Delivery O2 Flow Rate FiO2 11/14/17 11:42 36.4 85 18 120/77 (91) 96 11/14/17 08:01 36.5 76 16 119/77 (91) 95 Room Air 11/14/17 08:00 Room Air 11/14/17 04:00 Room Air 11/14/17 04:00 36.4 88 16 103/64 (77) 93 Room Air 11/14/17 00:18 36.4 88 18 106/67 (80) 95 Room Air 11/14/17 00:00 Room Air 11/13/17 19:44 36.6 81 18 107/65 (79) 96 Room Air 11/13/17 19:30 Room Air 11/13/17 16:00 Room Air 11/13/17 14:34 36.8 90 18 107/72 (84) 96 Room Air Physical Exam General Appearance: WD/WN, no apparent distress Eyes: normal inspection, EOMI, sclerae normal ENT: normal ENT inspection, hearing grossly normal, pharynx normal Neck: supple, no adenopathy, no JVD, trachea midline Respiratory/Chest: chest non-tender, lungs clear, normal breath sounds, no respiratory distress, no accessory muscle use Cardiovascular: regular rate, rhythm, no edema, no gallop, no JVD, no murmur Abdomen: normal bowel sounds, non tender, soft, no organomegaly Extremities: normal range of motion, non-tender, normal inspection, no pedal edema, no calf tenderness Neurologic/Psychiatric: slots manager II-XII nml as tested, alert, normal mood/affect, oriented x 3, + motor weakness (generalized) Skin: normal color, warm/dry, no rash Laboratory Results Last 24 Hours Test 11/13/17 16:26 11/13/17 20:19 11/14/17 07:40 11/14/17 11:36 Bedside Glucose 104 mg/dl 102 mg/dl 123 mg/dl 105 mg/dl Assessment and Plan 87 yo female with recurrent colitis with possible lesion in ascending colon - Colitis with diarrhea: 2-3 loose stools every day, ongoing for a month now according to patient and family WBC smear negative, less likely infectious C diff negative stop Cipro and Flagyl today patient and family do not wish to proceed with colonoscopy add Imodium for symptom relief, advance diet - Dehydration: resolved, stop fluids today - Mild protein calorie malnutrition due to poor intake and diarrhea for a month add supplement - Pressure ulcer of sacral lesion, 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 2, POA wound care, frequent turning - UTI, POA: streptococcus, WBC now normal - HTN: BP running low normal - CKD stage IV: Cr at baseline, UO improved with fluids plan for [facility], ready for discharge possibly as early as tomorrow Level 5, DNR
[2017-11-14] MEDS: ONDANSETRON INJ 2 MG/ML 2 ML VIAL IV PRN (15:49)
[2017-11-14 19:37] VITALS: BP 118/76; PULSE 84; TEMP 36.8; O2SAT 95
--- NOTE | 2017-11-14 20:28 | GASTROENTEROLOGY PROGRESS NOTE ---
DATE: 11/14/2017 GASTROENTEROLOGY INPATIENT PROGRESS NOTE SUBJECTIVE: Chart reviewed, patient examined. The patient is resting comfortably in bed. She reports some nausea today, but no significant abdominal pain, melena or bright red blood per rectum, vomiting or hematemesis. Her symptoms of diarrhea are perhaps less so than on admission. I did speak with her and had heard from the primary team that the family would like to defer on colonoscopy at this time and treat symptomatically given her advanced age and comorbidities. REVIEW OF SYSTEMS: Otherwise noncontributory except for mentioned above by 13-point exam. PHYSICAL EXAMINATION: VITAL SIGNS: Today - temperature 36.8, blood pressure 118/76, respirations 18, heart rate 84 and 95% on room air. LABORATORY STUDIES: showed a point of care glucose 105. Giardia was not detected. Stool - H. pylori antigen was not detected. MEDICATIONS: The patient's medications were reviewed and include Imodium, aspirin, Plavix, iron tablets, Inderal, lorazepam, potassium citrate, simvastatin, heparin subQ, insulin and meclizine p.r.n. and Zofran p.r.n. PHYSICAL EXAMINATION: GENERAL: The patient is awake, alert and oriented x3. HEENT: Sclerae are anicteric. Conjunctivae moist. Oral mucosa moist. HEART: Normal S1, S2. LUNGS: Clear to auscultation. ABDOMEN: Soft, nontender, without rebound or guarding. There are positive bowel sounds. There are no abdominal masses or bruits. There is no evidence for ascites or shifting dullness. EXTREMITIES: Without edema. RECTAL: Deferred. IMPRESSION AND PLAN: The patient with features of diarrhea on admission with no obvious infectious etiology by way of Giardia. CT had suggested a mid ascending colon inflammation with stranding. The patient and her family have declined colonoscopy at this time. During my conversation with the patient's daughter, we did discuss the aspects of missing a lesion that could be life threatening; however, it is reported that the family does not wish to pursue this at that time. Would continue with antiemetic therapy and slowly advance diet as tolerated. At the present time, we will sign off for now. If we could be of further assistance, please do not hesitate to contact our service. Thank you for allowing us to participate in this pleasant lady's care. BRIAN
[2017-11-14] MEDS: INSULIN GLARGINE SOLOSTAR 100 UNITS/ML 3 ML PEN SC SCH (20:55)
[2017-11-14] MEDS: SIMVASTATIN 40 MG TAB PO SCH (20:55)
[2017-11-14 23:03] VITALS: BP 103/69; PULSE 81; TEMP 36.7; O2SAT 95
[2017-11-15] VITALS (7 sets, daily range): BP systolic 104–122; BP diastolic 67–80; PULSE 70–87; TEMP 36.3–37; O2SAT 91–96
[2017-11-15] MEDS: ACETAMINOPHEN 325 MG TAB PO SCH ×4 (06:05→23:52)
[2017-11-15] MEDS: INSULIN ASPART 100 UNITS/ML 3 ML PEN SC SCH ×4 (06:30→20:54)
[2017-11-15 06:51] LABS: HEMOGLOBIN 11.1 g/dL (12.0-16.0); MEAN CELL VOLUME 99.1 fL (80-100); MEAN CORPUSCULAR HEMOGLOBIN 32.4 pg (25-34); MEAN CORPUSCULAR HGB CONC 32.6 g/dl (32-36); MEAN PLATELET VOLUME 9.2 fL (7.4-10.4); PLATELET COUNT 353 K/uL (130-400); RED CELL DISTRIBUTION WIDTH SD 57.6 fL (36.4-46.3); WHITE BLOOD COUNT 9.84 K/uL (4.8-10.8)
[2017-11-15] MEDS: POTASSIUM CITRATE 10 MEQ TAB PO SCH ×2 (08:40→19:56)
[2017-11-15] MEDS: ONDANSETRON INJ 2 MG/ML 2 ML VIAL IV PRN (08:40)
[2017-11-15] MEDS: MIRABEGRON ER 25 MG TAB PO SCH (08:41)
[2017-11-15] MEDS: LORAZEPAM 0.5 MG TAB PO SCH ×2 (08:41→19:58)
[2017-11-15] MEDS: FERROUS SULFATE 325 MG TAB PO SCH (08:41)
[2017-11-15] MEDS: CLOPIDOGREL BISULFATE 75 MG TAB PO SCH (08:41)
[2017-11-15] MEDS: CYANOCOBALAMIN 500 MCG TAB (VIT B-12) PO SCH (08:41)
[2017-11-15] MEDS: PROPRANOLOL HCL 80 MG TAB PO SCH (08:41)
[2017-11-15] MEDS: BOOST GLUCOSE CONTROL VANILLA PO SCH ×2 (08:42→19:55)
[2017-11-15] MEDS: HEPARIN SOD 5000 UNIT/0.5 ML CARP SQ SCH ×2 (08:47→21:06)
[2017-11-15] MEDS: ASPIRIN 81 MG ECTAB PO SCH (08:52)
[2017-11-15] MEDS ORDERED: ASPIRIN 81 MG CHEW ONE (08:52)
--- NOTE | 2017-11-15 12:57 | NUR ---
Discharge planning. PEr Dr Rawls, patient should be stable for discharge tomorrow. I called Riddhi at [facility] with update, she can accept. Case management to schedule wheelchair van.
[2017-11-15] MEDS ORDERED: CEFTRIAXONE SOD INJ 1,000 MG in DEXTROSE 5% 50ML 50 ML IV SCH (13:00)
--- NOTE | 2017-11-15 14:34 | Progress Note ---
Subjective Date of Service: Nov 15, 2017. Subjective Pt evaluation today including: conversation w/ patient, physical exam, lab review, review of inpatient medication list Pain: no pain PO Intake: adequate Voiding: incontinence patient with two loose, but small BM today, no blood urinating frequently, small amounts, 50cc at a time, still with dysuria urine culture finally came back with results, enterococcus, only sensitive to Vancomycin reviewed labs, stable was going to send to [facility] but now with enterococcus UTI, will need to set up Vancomcycin IV Problem List Medical Problems: (1) Acute renal failure Status: Acute (2) Chronic kidney disease Status: Acute (3) Constipation Status: Acute (4) Fecal impaction Status: Acute (5) Hyperkalemia Status: Acute (6) Proctitis Status: Acute (7) UTI (urinary tract infection) Status: Acute (8) Weakness Status: Acute Review of Systems Constitutional: + weakness, + fatigue Abdomen: + diarrhea Female : + dysuria, + urinary frequency Neurologic: + weakness All Other Systems: Reviewed and Negative Medications Current Inpatient Medications Medications (Trade) Dose Ordered Sig/Nemo Route Start Time Stop Time Status Last Admin Dose Admin Acetaminophen (Tylenol Tab) 325 mg Q6 PO 11/12/17 18:00 12/12/17 17:59 11/15/17 12:32 325 MG Aspirin (Ecotrin Tab) 81 mg DAILY PO 11/13/17 09:00 12/13/17 08:59 11/15/17 08:52 81 MG Clopidogrel Bisulfate (plAVix TAB) 75 mg DAILY PO 11/13/17 09:00 12/13/17 08:59 11/15/17 08:41 75 MG Cyanocobalamin (Vitamin B-12 Tab) 1,000 mcg DAILY PO 11/13/17 09:00 12/13/17 08:59 11/15/17 08:41 1,000 MCG Ferrous Sulfate (Feosol Tab) 325 mg QAM PO 11/13/17 09:00 12/13/17 08:59 11/15/17 08:41 325 MG Lorazepam (Ativan Tab) 0.5 mg BID PO 11/12/17 21:00 12/12/17 20:59 11/15/17 08:41 0.5 MG Meclizine HCl (Antivert Tab) 25 mg TID PRN PO 11/12/17 14:45 1/25/18 14:44 Mirabegron (Myrbetriq Er) 50 mg DAILY PO 11/13/17 09:00 12/13/17 08:59 11/15/17 08:41 50 MG Nitroglycerin (Nitrostat Tab) 0.4 mg PRN UT 11/12/17 14:45 12/12/17 14:44 Potassium Citrate (Urocit-K Tab) 10 meq BID PO 11/12/17 21:00 12/12/17 20:59 11/15/17 08:40 10 MEQ Simvastatin (Zocor Tab) 40 mg QPM PO 11/12/17 21:00 12/12/17 20:59 11/14/17 20:55 40 MG Heparin Sodium (Porcine) (Heparin Sq 5000 Unit/0.5ml) 5,000 unit Q12 SQ 11/12/17 21:00 12/12/17 20:59 11/15/17 08:47 5,000 UNIT Acetaminophen (Tylenol Tab) 650 mg Q4H PRN PO 11/12/17 14:45 12/12/17 14:44 Al Hydrox/Mg Hydrox/Simethicone (Maalox Max Susp) 15 ml Q4H PRN PO 11/12/17 14:45 12/12/17 14:44 Magnesium Hydroxide (Milk Of Magnesia Susp) 30 ml Q12H PRN PO 11/12/17 14:45 12/12/17 14:44 Zolpidem Tartrate (Ambien Tab) 5 mg HSZ PRN PO 11/12/17 14:45 12/12/17 14:44 11/13/17 00:03 5 MG Ondansetron HCl (Zofran Inj) 4 mg Q6H PRN IV 11/12/17 14:45 12/12/17 14:44 11/15/17 08:40 4 MG Polyethylene (Miralax Powder Packet) 17 gm DAILY PRN PO 11/12/17 14:45 12/12/17 14:44 Insulin Aspart (novoLOG ASPART) SLIDING SCALE If C... ACHS SC 11/12/17 21:00 12/12/17 20:59 11/13/17 12:49 4 UNITS Glucose (Glucose 40% Gel) 15-30 GRAMS 15 GRAMS... UD PRN PO 11/12/17 14:45 12/12/17 14:44 Glucose (Glucose Chew Tab) 4-8 Tablets 4 Tabl... UD PRN PO 11/12/17 14:45 12/12/17 14:44 Dextrose (Dextrose 50% 50ML Syringe) 25-50ML OF 50% DW IV FOR... UD PRN IV 11/12/17 14:45 12/12/17 14:44 Glucagon (Glucagon Inj) 1 mg UD PRN SQ 11/12/17 14:45 12/12/17 14:44 Insulin Glargine (Lantus Solostar Pen) 6 units QPM SC 11/12/17 21:00 12/12/17 20:59 11/14/17 20:55 6 UNITS Propranolol HCl (Inderal Tab) 40 mg DAILY PO 11/13/17 09:00 12/13/17 08:59 11/15/17 08:41 40 MG Enteral Nutritional Formula (Boost Glucose Control) 1 can BID PO 11/12/17 21:00 12/12/17 20:59 11/13/17 21:01 1 CAN Loperamide HCl (Imodium Cap) 2 mg Q4 PRN PO 11/14/17 12:15 12/14/17 12:14 11/15/17 07:52 2 MG Ceftriaxone Sodium 1000 mg/ Dextrose 60 ml @ 100 mls/hr DAILY@1300 IV 11/15/17 13:00 11/25/17 12:59 11/15/17 13:00 100 MLS/HR Objective Vital Signs Date Time Temp Pulse Resp B/P (MAP) Pulse Ox O2 Delivery O2 Flow Rate FiO2 11/15/17 11:33 36.8 86 16 118/73 (88) 91 Room Air 11/15/17 08:00 96 Room Air 11/15/17 07:34 36.6 83 16 104/68 (80) 96 Room Air 11/15/17 00:00 Room Air 11/14/17 23:03 36.7 81 16 103/69 (80) 95 Room Air 11/14/17 19:37 36.8 84 18 118/76 (90) 95 Room Air 11/14/17 16:00 Room Air Physical Exam General Appearance: WD/WN, no apparent distress Eyes: normal inspection, EOMI, sclerae normal ENT: normal ENT inspection, hearing grossly normal, pharynx normal Neck: supple, no adenopathy, no JVD, trachea midline Respiratory/Chest: chest non-tender, lungs clear, normal breath sounds, no respiratory distress, no accessory muscle use Cardiovascular: regular rate, rhythm, no edema, no gallop, no JVD, no murmur Abdomen: normal bowel sounds, non tender, soft, no organomegaly Extremities: normal range of motion, non-tender, normal inspection, no pedal edema, no calf tenderness, pelvis stable Neurologic/Psychiatric: access lead II-XII nml as tested, alert, normal mood/affect, oriented x 3, + motor weakness (generalized) Skin: normal color, warm/dry, no rash Laboratory Results Last 24 Hours Test 11/14/17 16:24 11/14/17 20:21 11/15/17 06:24 11/15/17 07:16 Bedside Glucose 104 mg/dl 135 mg/dl 112 mg/dl White Blood Count 9.84 K/uL Red Blood Count 3.43 M/uL Hemoglobin 11.1 g/dL Hematocrit 34.0 % Mean Corpuscular Volume 99.1 fL Mean Corpuscular Hemoglobin 32.4 pg Mean Corpuscular Hemoglobin Concent 32.6 g/dl RDW Standard Deviation 57.6 fL RDW Coefficient of Variation 16.0 % Platelet Count 353 K/uL Mean Platelet Volume 9.2 fL Test 11/15/17 11:42 Bedside Glucose 97 mg/dl Assessment and Plan 87 yo female with recurrent colitis with possible lesion in ascending colon - Colitis with diarrhea: 2-3 loose stools every day, ongoing for a month now according to patient and family WBC smear negative, less likely infectious C diff negative, Giardia negative, H pylori negative stopped Cipro and Flagyl patient and family do not wish to proceed with colonoscopy add Imodium for symptom relief, advance diet - Dehydration: resolved, no further fluids needed - Mild protein calorie malnutrition due to poor intake and diarrhea for a month add supplement - Pressure ulcer of sacral lesion, 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
[2017-11-15] MEDS ORDERED: VANCOMYCIN IV 1,000 MG in SODIUM CHLORIDE 0.9% 250ML 250 ML IV SCH (14:42)
[2017-11-15] MEDS ORDERED: VANCOMYCIN IV 1,500 MG in SODIUM CHLORIDE 0.9% 500ML 500 ML IV ONE (14:45)
[2017-11-15] MEDS ORDERED: VANCOMYCIN CONSULT ACTIVE PRN (14:45)
--- NOTE | 2017-11-15 15:37 | Pharmacy Progress Note ---
Pharmacy Antibiotic Consult Date of Service: Nov 15, 2017. Pharmacy Dosing Scope Pharmacy is consulted to initiate Vancomycin IV dosing therapy, order appropriate labs and adjust drug dose/frequency. Subjective The patient is a 87 year old female admitted on Nov 12, 2017 at 14:52. Objective Height (Feet): 5 Height (Inches): 3.00 Weight (Kilograms): 59.100 Lab Results (24hrs): Test 11/15/17 06:24 11/15/17 07:16 11/15/17 11:42 White Blood Count 9.84 K/uL (4.8-10.8) Red Blood Count 3.43 M/uL (4.2-5.4) Hemoglobin 11.1 g/dL (12.0-16.0) Hematocrit 34.0 % (37-47) Mean Corpuscular Volume 99.1 fL (80-100) Mean Corpuscular Hemoglobin 32.4 pg (25-34) Mean Corpuscular Hemoglobin Concent 32.6 g/dl (32-36) RDW Standard Deviation 57.6 fL (36.4-46.3) RDW Coefficient of Variation 16.0 % (11.5-14.5) Platelet Count 353 K/uL (130-400) Mean Platelet Volume 9.2 fL (7.4-10.4) Bedside Glucose 112 mg/dl (70-90) 97 mg/dl (70-90) Assessment & Plan Pt is an 87yo F growing E. Faecium sensitive to only Vancomycin, KEVIN 1. Set to receive Vancomycin 1500mg (25mg/kg) x1 to achieve a peak ~36mcg/mL. Difficult to extrapolate population p'kinetics due to them not being studied in this population. Given her renal fxn I surmise she will require to be re-dosed in roughly 33hrs. Will order a random lvl 11/16/17 @0444 to ensure we are achieving therapeutic concentrations. Goal trough for E. Faecium (KEVIN 1) in the urine: 15-20mcg/mL Pharmacy will continue to follow and will adjust dose/frequency as necessary. Thank you
--- NOTE | 2017-11-15 16:17 | NUR ---
CWOCN: RECEIVED NURSE REQUEST, RE: SACRUM RED/PURPLE, SKIN PEELING TO MEDIAL SACRUM. FOUND PATIENT WITH BROWN DISCOLORATION OF MEDIAL SACRUM/COCCYX AREA. FOUND DIFFUSE RESOLVING ECCHYMOSIS TO BOTH LEFT AND RIGHT BUTTOCKS. APPEARS TO HAVE BEEN A SKIN TEAR AT PROXIMAL END OF BUTTOCKS CLEFT. THERE IS SKIN SLOUGHING THERE. NO OPEN AREAS. NO AREAS THAT APPEAR TO BE PRESSURE AT THIS TIME. DENIES INCONTINENE. STATES HAS BEEN LAYING DOWN A LOT LATELY. SEE PHOTOS. IS ON [employer] MATTRESS. INSTRUCTED TO TURN OFF BACK SIDE OFTEN. IF LAYING ON BACK, LIFT BUTTOCKS OFF BED SURFACE EVERY 15-30 MINUTES.
[2017-11-15] MEDS: SIMVASTATIN 40 MG TAB PO SCH (19:56)
[2017-11-15] MEDS: INSULIN GLARGINE SOLOSTAR 100 UNITS/ML 3 ML PEN SC SCH (21:06)
[2017-11-16 04:52] LABS: CREATININE 1.27 mg/dl (0.60-1.20)
[2017-11-16] MEDS: ACETAMINOPHEN 325 MG TAB PO SCH ×2 (05:47→12:30)
[2017-11-16] MEDS: INSULIN ASPART 100 UNITS/ML 3 ML PEN SC SCH ×2 (06:30→11:00)
[2017-11-16 07:14] VITALS: BP 96/64; PULSE 90; TEMP 36.4; O2SAT 96
[2017-11-16 08:00] VITALS: O2SAT 96
[2017-11-16] MEDS: BOOST GLUCOSE CONTROL VANILLA PO SCH (08:27)
[2017-11-16] MEDS: CLOPIDOGREL BISULFATE 75 MG TAB PO SCH (08:30)
[2017-11-16] MEDS: LORAZEPAM 0.5 MG TAB PO SCH (08:30)
[2017-11-16] MEDS: FERROUS SULFATE 325 MG TAB PO SCH (08:30)
[2017-11-16] MEDS: CYANOCOBALAMIN 500 MCG TAB (VIT B-12) PO SCH (08:31)
[2017-11-16] MEDS: ASPIRIN 81 MG ECTAB PO SCH (08:31)
[2017-11-16] MEDS: MIRABEGRON ER 25 MG TAB PO SCH (08:31)
[2017-11-16] MEDS: POTASSIUM CITRATE 10 MEQ TAB PO SCH (08:31)
[2017-11-16] MEDS: PROPRANOLOL HCL 80 MG TAB PO SCH (08:31)
[2017-11-16] MEDS: HEPARIN SOD 5000 UNIT/0.5 ML CARP SQ SCH (08:35)
[2017-11-16] MEDS ORDERED: VANCOMYCIN IV 1,250 MG in SODIUM CHLORIDE 0.9% 250ML 250 ML IV ONE (09:00)
[2017-11-16] MEDS ORDERED: VANC1INJ71 IV (10:33)
[2017-11-16] MEDS ORDERED: PROP80TA2 PO (10:33)
[2017-11-16] MEDS ORDERED: INSDGIPEN SC (10:33)
[2017-11-16] MEDS ORDERED: IMD2X PO (10:34)
--- NOTE | 2017-11-16 10:44 | Discharge Instructions ---
Discharge Instructions Date of Service Nov 16, 2017. Admission Reason for Admission: Colitis Discharge Discharge Diagnosis / Problem: Enterococcus UTI, Diarrhea, weakness, malnutrition Discharge Goals Goal(s): Improve function, Improve disease control Activity Recommendations Activity Level: Assistance Required Therapies: Physical Therapy, Occupational Therapy Lifting Limitations: none Exercise/Sports Limitations: as tolerated Shower/Bathe: no limitations . Additional Information Patient informed of condition: Yes Advance Directives: Yes DNR: Yes Level of Care: Skilled Communicable Disease: No Prognosis: Stable Oxygen at (LPM): no King Catheter: No Instructions / Follow-Up Instructions / Follow-Up Medications: - VANCOMYCIN: 1250mg IV daily, this is dose recommended currently by pharmacy, may need a higher dose if trough levels are not high enough, see below - IMODIUM: take as needed for diarrhea, see below for discussion - LANTUS: typically on 12 units in the evening, however, decreased to 6 units since not eating well, sugars stable on this dose Diarrhea: recurring issue since beginning of October, C diff negative x 2 samples, no fecal WBC, Giardia negative evaluated by CT scan, suspicious lesion in ascending colon, could be colitis vs tumor patient and family opted to not get colonoscopy after discussing pros and cons with hospitalist and tube balancer for now, use Imodium for symptoms, currently diarrhea improved, no BM today Enterococcus UTI: only sensitive to Vancomycin, PICC line placed, complete 7 more doses please check Vancomycin trough level tomorrow morning prior to morning dose trough goal for Enterococcus in urine is 15-20mcg/mL if trough is lower than 15 then increase to 1500mg IV daily and follow trough levels closely, contact pharmacist at [facility] Malnutrition: continue utilized Boost Glucose control for extra protein and calories malnutrition due to poor appetite coupled with diarrhea FOLLOW UP - physician at [facility] this week Current Hospital Diet Patient's current hospital diet: Diabetes Type 2 Diet Discharge Diet Recommended Diet: Diabetes Type 2 Diet Pending Studies Studies pending at discharge: no Physician Orders On Transfer Additional Orders: Vancomycin trough level in morning 11/17/17 and then further specified by pharmacist BMP and CBC on 11/19/17 POLST Discussion: without POLST completion Laboratory Results Hemoglobin A1c Test 11/13/17 06:56 Range/Units Estimated Average Glucose 128 mg/dl Hemoglobin A1c 6.1 H 4.5-5.6 % Medical Emergencies . Who to Call and When: Medical Emergencies: If at any time you feel your situation is an emergency, please call 911 immediately. . Non-Emergent Contact Non-Emergency issues call your: Primary Care Provider Call Non-Emergent contact if: you have a fever, you have any medication questions . . "Provider Documentation" section prepared by Patel Rawls. . Core Measure Problem Core Measures: None [place] Drug Monitoring Program Search Results: no issues identified
[2017-11-16 11:35] VITALS: BP 112/69; PULSE 79; TEMP 36.9; O2SAT 97
--- NOTE | 2017-11-16 12:55 | NUR ---
A: IV Team at bedside to place picc line for discharge.
[2017-11-16 13:03] VITALS: BP 112/69; PULSE 79; TEMP 36.9; O2SAT 97
--- NOTE | 2017-11-16 14:19 | NUR ---
Case Management: Pt is for transfer to [facility] today. PICC line has been inserted. Admissions called to set up w/c van transport and copy of discharge instructions and PICC info faxed to [facility]. I spoke with Riddhi earlier and she was aware that pt was a potential and informing staff.
--- NOTE | 2017-11-16 14:42 | NUR ---
MD and primary RN obtained verbal consent (2 witnesses) for PICC per Donnie Frias RN (primary RN).
--- NOTE | 2017-11-16 14:44 | NUR ---
Case Management: Transportation arranged for 1600 and per nursing staff, family will meet pt over at [facility].
--- NOTE | 2017-11-16 14:48 | Discharge Summary ---
Discharge Summary Date of Service Nov 16, 2017. Discharge Summary Admission Date: Nov 12, 2017 at 14:52 Discharge Date: Nov 16, 2017 Discharge Disposition: assisted facility Principal Diagnosis: Diarrhea, chronic Problems/Secondary Diagnoses: Enterococcus UTI Malnutrition DM type II Stage II sacral pressure ulcer Dehydration CKD stage III Immunizations: Have You Had Influenza Vaccine: No Influenza Vaccine Date: Sep 14, 2013 History of Tetanus Vaccine?: UTD History of Pneumococcal: Unknown History of Hepatitis B Vaccine: Unknown Procedures: none Consultations: Gastroenterology Medication Reconciliation New Medications: Vancomycin HCl in Sodium Chlor (Vancomycin 500-0.9 mg/100Ml-%) 1 Inj Inj 1250 MG IV DAILY for 7 Days, #7 DOSE 0 Refills Insulin Glargine (Lantus Solostar) 100 Unit/Ml Inj 6 UNITS SC QPM, #1 BOX 3 Refills Loperamide Hcl (Imodium) 2 Mg Cap 2 MG PO Q4 PRN for Diarrhea, #30 CAP 1 Refill Changed Medications: Propranolol (Inderal) 80 Mg Tab 40 MG PO DAILY, #30 TABS 3 Refills (Changed from: 80 MG; Refills: ) Continued Medications: Acetaminophen Tab (Tylenol) 325 Mg Tab 325 MG PO Q6H Aspirin (Aspirin Ec) 81 Mg Tab 81 MG PO DAILY Clopidogrel (Plavix) 75 Mg Tab 75 MG PO DAILY, TAB Cyanocobalamin (Vitamin B-12 1000 Mcg) 1,000 Mcg Tab 1000 MCG PO DAILY, TAB Ferrous Sulfate (Ferrous Sulfate) 325 Mg Tab 325 MG PO QAM Lisinopril (Zestril) 40 Mg Tab 40 MG PO DAILY, TAB Lorazepam (Lorazepam) 0.5 Mg Tab 0.5 MG PO BID Magnesium (Magnesium 250 mg) 1 Tab Tab 2 TABS PO BID Meclizine Hcl (Meclizine Hcl) 25 Mg Tab 1 TAB PO TID PRN for Dizziness or Vertigo for 10 Days, #30 TAB Mirabegron (Myrbetriq Er) 50 Mg Tab 50 MG PO DAILY, TAB Nitroglycerin (Nitrostat) 0.4 Mg Tab 0.4 MG UT PRN, BTL Omeprazole (Prilosec) 40 Mg Cap 40 MG PO QAM, CAP Pentosan Polysulfate Sodium (Elmiron) 100 Mg Cap 100 MG PO TID, CAP TAKE THIS MEDICATION THREE TIMES A DAY BEFORE MEALS. Polyethylene Glycol 3350 (Miralax) 1 Pow Pow 17 GM PO DAILY PRN for Constipation, #255 GM Potassium Citrate (Potassium Citrate) 10 Meq Tab 10 MEQ PO BID Simvastatin (Zocor) 40 Mg Tab 40 MG PO QPM, TAB Discontinued Medications: Insulin Glargine (Lantus Solostar) 100 Unit/Ml Inj 12 UNITS SC QPM, PEN Metformin Hcl (Glucophage) 500 Mg Tab 500 MG PO BID, TAB Discharge Exam patient feeling a little better, more energy, perhaps because of Vancomycin starting yesterday discussed PICC line with patient and then got consent from her daughter over the phone PICC placed CM discussed with [facility], accepted for transfer there, awaiting transport no diarrhea today, less urinary frequency Review of Systems: Constitutional: + weakness, + fatigue, No fever, No chills, No sweats, No weight loss, No problem reported Eyes: No worsening of vision, No eye pain, No redness, No discharge, No diplopia, No problem reported ENT: No hearing loss, No unusual epistaxis, No nasal symptoms, No sore throat, No tinnitus, No dental problems, No trouble swallowing, No problem reported Respiratory: No cough, No sputum, No wheezing, No shortness of breath, No dyspnea on exertion, No dyspnea at rest, No hemoptysis, No problem reported Cardiovascular: No chest pain, No orthopnea, No PND, No edema, No claudication, No palpitations, No problem reported Abdomen: No pain, No nausea, No vomiting, No diarrhea, No constipation, No GI bleeding, No problem reported Musculoskeletal: No joint pain, No muscle pain, No swelling, No calf pain, No problem reported Genitourinary - Female: + urinary frequency, + urinary urgency, + urinary incontinence, No dysuria, No urinary retention, No hematuria Neurologic: + memory loss, + weakness, No paralysis, No numbness/tingling, No vertigo, No balance problems, No problem reported Psychiatric: No depression symptoms, No anhedonism, No anxiety, No insomnia , No substance abuse, No problem reported Endocrine: No fatigue, No excessive thirst, No excessive urination, No problem reported Hematologic / Lymphatic: No abnormal bleeding/bruising, No clotting problems , No swollen lymph nodes, No night sweats, No problem reported Integumentary: No rash, No itch, No new/changing skin lesions, No color change, No bleeding, No problem reported Physical Exam: General Appearance: WD/WN, no apparent distress Eyes: normal inspection, EOMI, sclerae normal ENT: normal ENT inspection, hearing grossly normal, pharynx normal Neck: supple, no adenopathy, no JVD, trachea midline Respiratory/Chest: chest non-tender, lungs clear, normal breath sounds, no respiratory distress, no accessory muscle use Cardiovascular: regular rate, rhythm, no edema, no gallop, no JVD, no murmur , normal peripheral pulses Abdomen / GI: normal bowel sounds, non tender, soft, no organomegaly Extremities: normal inspection, no calf tenderness, normal capillary refill , no pedal edema, normal range of motion, pelvis stable Neurologic/Psychiatric: petrophysical engineer II-XII nml as tested, alert, normal mood/affect , normal reflexes, oriented x 3, + abnormal gait, + motor weakness (generalized) Skin: normal color, warm/dry, no rash Hospital Course 87 yo female with recurrent colitis with possible lesion in ascending colon - Colitis with diarrhea: 2-3 loose stools every day, ongoing for a month prior to admission WBC smear negative, less likely infectious C diff negative, Giardia negative, H pylori negative stopped Cipro and Flagyl patient and family do not wish to proceed with colonoscopy add Imodium for symptom relief, working well, no diarrhea today diet advanced to regular consistency - Dehydration: resolved, no further fluids needed - Mild protein calorie malnutrition due to poor intake and diarrhea for a month add supplement, Boost Breeze glucose control - Pressure ulcer of sacral lesion, 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 2, POA wound care, frequent turning - UTI, POA: final culture shows Enterococcus, only sensitive to Vancomycin Vancomycin 1250mg IV daily check trough in the AM, goal is 15-20mcg/mL if trough < 15 then increase dose to 1500mg IV q24 and follow trough will complete 7 more days total - HTN: BP running low normal - CKD stage IV: Cr at baseline, UO improved with fluids - DM type II: was on Metformin and Lantus 12 units qHS prior to admission due to poor oral intake, Metformin discontinued and Lantus decreased to 6 units sugars have been stable, will continue on just Lantus 6 units qHS plan for [facility] today Level 5, DNR Total Time Spent: Greater than 30 minutes This includes examination of the patient, discharge planning, medication reconciliation, and communication with other providers. Discharge Instructions Please refer to the electronic Patient Visit Report (Discharge Instructions) for additional information. Follow-Up physician at [facility] next week Additional Copies To [place], [place]
[2017-11-16 14:57] VITALS: BP 95/59; PULSE 91; TEMP 36.3; O2SAT 98
--- NOTE | 2017-11-16 16:13 | NUR ---
DISCHARGE NOTE: Patient discharged to [facility] for rehab. Transported via wheelchair service. IV removed. Patient with PICC line for IV antibiotics.
--- NOTE | 2017-11-16 16:22 | NUR ---
Report called to [facility] Jennifer Moe RN accepted report.
[2017-11-30] MEDS ORDERED: INSU100I SQ (17:54)
[2017-11-30] MEDS ORDERED: PROP20TA67 PO (17:54)
[2017-11-30] MEDS ORDERED: INSDGI SC (20:44)
[2017-12-03] MEDS ORDERED: RSPS5 PO (12:37)
[2017-12-03] MEDS ORDERED: CEFD300C3 PO (12:37)
[2017-12-03] MEDS ORDERED: VANC1SUS PO (12:37)
== END 2017-11-16 16:15 | DRG 392 ==
LOC: EDBD 09:25 → C.EDA 09:26 → C.MED 14:52 → ENRESERV 15:23
PROVIDERS: ADMIT Internal Medicine; ATTEND Internal Medicine
DX: K52.9 Noninfective gastroenteritis and colitis, unspecified (principal); N39.0 Urinary tract infection, site not specified; E44.1 Mild protein-calorie malnutrition; N18.4 Chronic kidney disease, stage 4 (severe); B95.2 Enterococcus as the cause of diseases classified elsewhere; E11.22 Type 2 diabetes mellitus with diabetic chronic kidney disease; E86.0 Dehydration; L89.152 Pressure ulcer of sacral region, stage 2; I12.9 Hypertensive chronic kidney disease with stage 1 through stage 4 chronic kidney disease, or unspecified chronic kidney disease; Z66 Do not resuscitate; Z79.82 Long term (current) use of aspirin; Z79.4 Long term (current) use of insulin; E78.5 Hyperlipidemia, unspecified

== ENCOUNTER 2017-11-30 16:43 | Inpatient (IN) | payer OTHER ==
[~2017-11-30] VITALS: Ht 160 cm; Wt 56.0 kg
[~2017-11-30 16:43] MED LIST changes: -CEFD300C3 PO; -INSDGI SC; -INSU100I; -PROP20TA67 PO; -RSPS5 PO; -VANC1SUS PO
[2017-11-30] MEDS ORDERED: VANCOMYCIN 1GM/270ML NSS IV STA (17:25)
[2017-11-30] MEDS ORDERED: SODIUM CHLORIDE 0.9% 1000ML 500 ML IV ONE (17:25)
[2017-11-30] MEDS ORDERED: CEFEPIME IV 2,000 MG in DEXTROSE 5% 100ML 100 ML IV STA (17:25)
--- NOTE | 2017-11-30 17:34 | EMERGENCY ROOM VISIT NOTE ---
History Report prepared by Kartik: Curly Brown Under the Supervision of: Dr. Devon Krishna M.D. First contact with patient: 17:16 Chief Complaint: OTHER COMPLAINT Stated Complaint: ABNORMAL LABS History of Present Illness The patient is a 87 year old female who presents to the Emergency Room with complaints of constant weakness that began 1 day ago. Patient is present with family members. Patient currently lives at [facility]. Patient has had a high white blood count for the past 2 days. Family states that she was brought to the ED because [facility]. Patient has associated symptoms of a fever, chills, "achiness", and diarrhea. Patient states that her symptoms have been better since yesterday. Family states that the patient has exerted herself more than normal the past couple of days. Family states that she had a 101.7 fever 1 day ago. Patient was able to eat a bowl of cereal this morning and has been trying to drink liquids. Patient denies shortness of breath, vomiting, and any coughs. Patient states that she has a PICC line used for antibiotics. The last time she was given antibiotics was 5 days ago--Vancomycin for a resistant UTI. Source of History: patient, family Onset: 1 day ago Position: other (Global) Timing: constant Associated Symptoms: + fevers, + chills, + diarrhea, No cough, No SOB, No vomiting Note: Patient has "achiness". Review of Systems See HPI for pertinent positives & negatives. A total of 10 systems reviewed and were otherwise negative. Past Medical & Surgical Medical Problems: (1) Colitis (2) CVA (3) Diabetes mellitus (4) History of - hypertension (5) Urinary tract infection Family History Patient reports no known family medical history. No pertinent family medical history. Social History Smoking Status: Never Smoker Alcohol Use: none Drug Use: none Marital Status: Housing Status: lives with family Occupation Status: retired Current/Historical Medications Scheduled Aspirin (Aspirin Ec), 81 MG PO DAILY Clopidogrel (Plavix), 75 MG PO DAILY Cyanocobalamin (Vitamin B-12 1000 Mcg), 1,000 MCG PO DAILY Ferrous Sulfate (Ferrous Sulfate), 325 MG PO QAM Insulin Glargine (Lantus), 6 UNITS SC QPM Lisinopril (Zestril), 40 MG PO DAILY Lorazepam (Lorazepam), 0.5 MG PO BID Magnesium (Magnesium 250 mg), 500 MG PO BID Mirabegron (Myrbetriq Er), 50 MG PO DAILY Omeprazole (Prilosec), 40 MG PO QAM Pentosan Polysulfate Sodium (Elmiron), 100 MG PO TID Potassium Citrate (Potassium Citrate), 10 MEQ PO BID Propranolol (Inderal), 40 MG PO DAILY Simvastatin (Zocor), 40 MG PO QPM Vancomycin HCl in Sodium Chlor (Vancomycin 500-0.9 mg/100Ml-%), 1,250 MG IV DAILY Scheduled PRN Acetaminophen Tab (Tylenol), 325 MG PO Q6H PRN for Pain or Fever Loperamide Hcl (Imodium), 2 MG PO Q4 PRN for Diarrhea Meclizine Hcl (Meclizine Hcl), 25 MG PO Q8 PRN for VERTIGO Nitroglycerin (Nitrostat), 0.4 MG UT PRN PRN for Chest Pain Miscellaneous Medications Insulin Lispro (Human) (Humalog) Allergies Coded Allergies: No Known Allergies (Verified , 11/12/17) Physical Exam Vital Signs Date Time Temp Pulse Resp B/P (MAP) Pulse Ox O2 Delivery O2 Flow Rate FiO2 11/30/17 19:18 97 18 117/64 96 Room Air 11/30/17 17:44 94 Room Air 11/30/17 16:55 99 11/30/17 16:50 36.8 99 18 117/64 93 Room Air Physical Exam GENERAL: Patient is in no acute distress. HEENT: No acute trauma, normocephalic atraumatic, mucous membranes moist, no nasal congestion, no scleral icterus. NECK: No stridor, no adenopathy, no meningismus, trachea is midline. LUNGS: Clear to auscultation bilaterally, no wheeze, no rhonchi, breath sounds equal. HEART: Without murmurs gallops or rubs, regular rate and rhythm. ABDOMEN: Soft, nontender, bowel sounds positive, no hernias, no peritonitis. EXTREMITIES: No cyanosis or edema, full range of motion of all the joints without pain or difficulty, no signs for acute trauma. NEUROLOGIC: Oriented x 3, no acute motor or sensory deficits, no focal weakness. SKIN: Pale. No rash, no jaundice, no diaphoresis. Medical Decision & Procedures ER Provider Diagnostic Interpretation: Radiology results as stated below per my review and radiologist interpretation: CHEST ONE VIEW PORTABLE CLINICAL HISTORY: Sepsis dyspnea COMPARISON STUDY: 11/12/2017 FINDINGS: Mild stable cardiomegaly. Placement of right-sided PICC catheter in superior vena cava. No evidence of pneumothorax. Normal atelectasis right base. IMPRESSION: PICC catheter placed in the superior vena cava. No evidence pneumothorax. Minimal infiltrate versus atelectasis right base. The above report was generated using voice recognition software. It may contain grammatical, syntax or spelling errors. Electronically signed by: Braeden Calhoun M.D. 11/30/2017 5:47 PM Laboratory Results 11/30/17 17:50 Red Blood Count 3.28, Mean Corpuscular Volume 100.3, Mean Corpuscular Hemoglobin 33.2, Mean Corpuscular Hemoglobin Concent 33.1, Mean Platelet Volume 9.2, Neutrophils (%) (Auto) 64.1, Lymphocytes (%) (Auto) 26.8, Monocytes (%) ( Auto) 7.3, Eosinophils (%) (Auto) 1.2, Basophils (%) (Auto) 0.2, Neutrophils # ( Auto) 12.30, Lymphocytes # (Auto) 5.15, Monocytes # (Auto) 1.40, Eosinophils # ( Auto) 0.24, Basophils # (Auto) 0.04 11/30/17 17:50 Test 11/30/17 17:50 11/30/17 18:18 11/30/17 19:00 White Blood Count 19.21 K/uL (4.8-10.8) Red Blood Count 3.28 M/uL (4.2-5.4) Hemoglobin 10.9 g/dL (12.0-16.0) Hematocrit 32.9 % (37-47) Mean Corpuscular Volume 100.3 fL (80-100) Mean Corpuscular Hemoglobin 33.2 pg (25-34) Mean Corpuscular Hemoglobin Concent 33.1 g/dl (32-36) Platelet Count 315 K/uL (130-400) Mean Platelet Volume 9.2 fL (7.4-10.4) Neutrophils (%) (Auto) 64.1 % Lymphocytes (%) (Auto) 26.8 % Monocytes (%) (Auto) 7.3 % Eosinophils (%) (Auto) 1.2 % Basophils (%) (Auto) 0.2 % Neutrophils # (Auto) 12.30 K/uL (1.4-6.5) Lymphocytes # (Auto) 5.15 K/uL (1.2-3.4) Monocytes # (Auto) 1.40 K/uL (0.11-0.59) Eosinophils # (Auto) 0.24 K/uL (0-0.5) Basophils # (Auto) 0.04 K/uL (0-0.2) RDW Standard Deviation 59.6 fL (36.4-46.3) RDW Coefficient of Variation 16.4 % (11.5-14.5) Immature Granulocyte % (Auto) 0.4 % Immature Granulocyte # (Auto) 0.08 K/uL (0.00-0.02) Red Blood Cell Morphology Unremarkable Prothrombin Time 10.2 SECONDS (9.0-12.0) Prothromb Time International Ratio 1.0 (0.9-1.1) Activated Partial Thromboplast Time 30.3 SECONDS (21.0-31.0) Partial Thromboplastin Ratio 1.2 Anion Gap 7.0 mmol/L (3-11) Estimated GFR () 36.5 Estimated GFR (Non- 31.5 BUN/Creatinine Ratio 18.6 (10-20) Calcium Level 8.3 mg/dl (8.5-10.1) Magnesium Level 2.0 mg/dl (1.8-2.4) Total Bilirubin 0.4 mg/dl (0.2-1) Aspartate Amino Transf (AST/SGOT) 4 U/L (15-37) Alanine Aminotransferase (ALT/SGPT) 7 U/L (12-78) Alkaline Phosphatase 79 U/L (45-117) Total Protein 6.4 gm/dl (6.4-8.2) Albumin 2.3 gm/dl (3.4-5.0) Globulin 4.1 gm/dl (2.5-4.0) Albumin/Globulin Ratio 0.6 (0.9-2) Bedside Lactic Acid Venous 1.57 mmol/L (0.90-1.70) Urine Color DK YELLOW Urine Appearance CLOUDY (CLEAR) Urine pH 5.0 (4.5-7.5) Urine Specific [place]itt 1.031 (1.000-1.030) Urine Protein 1+ (NEG) Urine Glucose (UA) 2+ (NEG) Urine Ketones NEG (NEG) Urine Occult Blood 1+ (NEG) Urine Nitrite POS (NEG) Urine Bilirubin NEG (NEG) Urine Urobilinogen NEG (NEG) Urine Leukocyte Esterase TRACE (NEG) Urine WBC (Auto) 10-30 /hpf (0-5) Urine RBC (Auto) 0-4 /hpf (0-4) Urine Hyaline Casts (Auto) 1-5 /lpf (0-5) Urine Epithelial Cells (Auto) 10-20 /lpf (0-5) Urine Bacteria (Auto) 4+ (NEG) Laboratory results reviewed by me. Medications Administered Medications (Trade) Dose Ordered Sig/Nemo Route Start Time Stop Time Status Last Admin Dose Admin Sodium Chloride 500 ml @ 999 mls/hr Q31M ONCE IV 11/30/17 17:25 11/30/17 17:55 DC 11/30/17 17:25 999 MLS/HR Cefepime HCl 2000 mg/Dextrose 112.5 ml @ 200 mls/hr ONE STAT IV 11/30/17 17:25 11/30/17 17:58 DC 11/30/17 19:15 200 MLS/HR Vancomycin HCl (Vancomycin 1gm/ 270ml Nss) 1 gm NOW STAT IV 11/30/17 17:25 11/30/17 17:30 DC 11/30/17 19:29 1 GM Alteplase, Recombinant (Activase Cathflo) 2 mg ONE ONCE IV 11/30/17 18:45 11/30/17 18:46 DC 11/30/17 23:40 2 MG ECG Indication: weakness Rate (beats per minute): 100 Rhythm: sinus rhythm Findings: PVC (PVCs are present), no acute ischemic change, other (Non- specific T wave change diffusely) ED Course 1720: The patient was evaluated in room C11. A complete history and physical exam was performed. 1725: Vancomycin HCl 1gm IV, Cefepime HCl 2000mg/Dextrose 112.5ml @ 200mls/hr, Sodium Chloride 500 ml @ 999 mls/hr IV 1845: Activase Cathflo 2mg IV 1913: I reassessed the patient who is resting comfortably. 2030: Upon reexamination the patient will be further evaluated. I discussed results and treatment plan with the patient. She verbalizes agreement and understanding. I spoke with Dr. Crabtree of the [facility]. We discussed the patient's results and findings. The patient will be evaluated by Dr. Crabtree for further management. Medical Decision Differential Diagnosis: Sepsis or Bacteremia, UTI, pneumonia, electrolyte imbalance, influenza, flu- like illness, C. difficile infection There is a significant leukocytosis at 19,000, this could be consistent with infection. A mild anemia was present, nothing critical or in need of emergent correction. Renal panel testing does not show evidence for significant electrolyte abnormality or kidney failure. There was no hepatitis. Chest film did not show obvious pneumonia, some atelectasis was suspected at the right base. Lactic acid level was not elevated making sepsis less likely. Blood cultures are pending. Urinalysis did suggest infection, urine culture is pending. Stool C. difficile testing was positive. The patient presents with some chills, fever, weakness. She had a low blood pressure yesterday. On workup, she appears to have a UTI with a C. difficile colitis. The patient requires a hospital stay. She requires IV antibiotic therapy and C. difficile treatment. She was given IV vancomycin and IV cefepime as empiric antibiotic coverage. She has done well. She received a small amount of IV saline. I spoke to the patient and case management. The on-call hospitalist was consulted. Medication Reconcilliation Current Medication List: was personally reviewed by me Blood Pressure Screening Patient's blood pressure: Normal blood pressure Blood pressure disposition: Did not require urgent referral Consults Time Called: 2009 Consulting Physician: Dr. Crabtree - [facility] Returned Call: 2011 Discussed the patient's case. The patient will be evaluated for further management. Impression Primary Impression: Weakness Additional Impressions: Fever Leukocytosis C. difficile colitis Scribe Attestation The scribe's documentation has been prepared under my direction and personally reviewed by me in its entirety. I confirm that the note above accurately reflects all work, treatment, procedures, and medical decision making performed by me. Departure Information Dispostion Being Evaluated By Hospitalist Referrals Payal Green (PCP) Forms HOME CARE DOCUMENTATION FORM, IMPORTANT VISIT INFORMATION, WORK / SCHOOL INSTRUCTIONS Patient Instructions My [facility] Problem Qualifiers
--- NOTE | 2017-11-30 17:48 | DIAGNOSTIC IMAGING REPORT ---
CHEST ONE VIEW PORTABLE CLINICAL HISTORY: Sepsis dyspnea COMPARISON STUDY: 11/12/2017 FINDINGS: Mild stable cardiomegaly. Placement of right-sided PICC catheter in superior vena cava. No evidence of pneumothorax. Normal atelectasis right base. IMPRESSION: PICC catheter placed in the superior vena cava. No evidence pneumothorax. Minimal infiltrate versus atelectasis right base. The above report was generated using voice recognition software. It may contain grammatical, syntax or spelling errors. Electronically signed by: Braeden Calhoun M.D. 11/30/2017 5:47 PM Dictated Date/Time: 11/30/2017 5:46 PM
[2017-11-30] MEDS ORDERED: INSU100I ×2 (17:54)
[2017-11-30] MEDS ORDERED: PROP20TA67 PO ×2 (17:54)
[2017-11-30 18:22] LABS: HEMATOCRIT 32.9 % (37-47); HEMOGLOBIN 10.9 g/dL (12.0-16.0); MEAN CELL VOLUME 100.3 fL (80-100); MEAN CORPUSCULAR HEMOGLOBIN 33.2 pg (25-34); MEAN CORPUSCULAR HGB CONC 33.1 g/dl (32-36); MEAN PLATELET VOLUME 9.2 fL (7.4-10.4); PLATELET COUNT 315 K/uL (130-400); RED CELL DISTRIBUTION WIDTH CV 16.4 % (11.5-14.5); RED CELL DISTRIBUTION WIDTH SD 59.6 fL (36.4-46.3); WHITE BLOOD COUNT 19.21 K/uL (4.8-10.8)
[2017-11-30 18:31] LABS: PTT PATIENT 30.3 SECONDS (21.0-31.0)
[2017-11-30 18:41] LABS: ALBUMIN 2.3 gm/dl (3.4-5.0); ALT/SGPT 7 U/L (12-78); AST/SGOT 4 U/L (15-37); BLOOD UREA NITROGEN 28 mg/dl (7-18); CALCIUM 8.3 mg/dl (8.5-10.1); CARBON DIOXIDE 23 mmol/L (21-32); CREATININE 1.48 mg/dl (0.60-1.20); GLUCOSE 163 mg/dl (70-99); POTASSIUM 3.5 mmol/L (3.5-5.1); SODIUM 137 mmol/L (136-145)
[2017-11-30 18:44] LABS: ALKALINE PHOSPHATASE 79 U/L (45-117); TOTAL PROTEIN 6.4 gm/dl (6.4-8.2)
[2017-11-30] MEDS ORDERED: ALTEPLASE, RECOMBINANT 1 MG/ML 2 ML VIAL IV ONE (18:45)
[2017-11-30 18:52] LABS: BASO % 0.2 %; BASO ABS # 0.04 K/uL (0-0.2); EOS % 1.2 %; EOS ABS # 0.24 K/uL (0-0.5); IG# 0.08 K/uL (0.00-0.02); LYMPH % 26.8 %; LYMPH ABS # 5.15 K/uL (1.2-3.4); MONO % 7.3 %; NEUT % 64.1 %
[2017-11-30] MEDS ORDERED: GLUCOSE 40% GEL 15 GM TUBE PO PRN (19:15)
[2017-11-30] MEDS ORDERED: GLUCOSE 10 TABS/TUBE PO PRN (19:15)
[2017-11-30] MEDS ORDERED: GLUCAGON FOR INJ 1 MG VIAL SQ PRN (19:15)
--- NOTE | 2017-11-30 20:13 | History and Physical ---
History & Physical Date & Time of Service: Nov 30, 2017 at 19:44 Chief Complaint: Abnormal Labs Primary Care Physician: Payal Green History of Present Illness Source: patient, clinic records, hospital records Patient felt very unwell yesterday. Family states she had a fever (Tmax 101.7), was confused, felt achy (although she attributes this to physical therapy) and was complaining of some abdominal pain, though no nausea or vomiting. She has also been having some diarrhea, although this is a chronic issue for her. She was referred by Peter Moe for sepsis given clinical exam and leukocytosis. Influenza checked to be negative. She had recently completed her 10 day course of IV vanco for highly resistant enterococcus faecalis UTI ~5 days ago. Her PICC line is still in situ. She denies current UTI symptoms - no dysuria/urgency /frequency/hematuria. However, she did have urinary retention/inability to void - and thus need to be catheterizing to obtain urine sample while in the ED. She otherwise denies fevers/chills, headaches, CP, palpitations, dyspnea, lower extremity swelling or rashes. Her appetite is okay, although she admits to poor PO fluid intake. She has chronic back pain, but does not take scheduled analgesia. She is feeling much better today. Past Medical/Surgical History Medical Problems: DM CKD III HTN Gait dysfunction Chronic diarrhea Generalized weakness Family History Patient reports no known family medical history. Reviewed: non-contributory Social History Smoking Status: Never Smoker Smokeless Tobacco Use: No Alcohol Use: none Drug Use: none Marital Status: Housing status: lives with family Occupational Status: retired Immunizations History of Influenza Vaccine: No Influenza Vaccine Date: Sep 14, 2013 History of Tetanus Vaccine?: UTD History of Pneumococcal: Unknown History of Hepatitis B Vaccine: Unknown Multi-Drug Resistant Organisms History of MDRO: No Allergies Coded Allergies: No Known Allergies (Verified , 11/12/17) Home Medications Scheduled Aspirin (Aspirin Ec), 81 MG PO DAILY Clopidogrel (Plavix), 75 MG PO DAILY Cyanocobalamin (Vitamin B-12 1000 Mcg), 1,000 MCG PO DAILY Ferrous Sulfate (Ferrous Sulfate), 325 MG PO QAM Insulin Glargine (Lantus), 6 UNITS SC QPM Lisinopril (Zestril), 40 MG PO DAILY Lorazepam (Lorazepam), 0.5 MG PO BID Magnesium (Magnesium 250 mg), 500 MG PO BID Mirabegron (Myrbetriq Er), 50 MG PO DAILY Omeprazole (Prilosec), 40 MG PO QAM Pentosan Polysulfate Sodium (Elmiron), 100 MG PO TID Potassium Citrate (Potassium Citrate), 10 MEQ PO BID Propranolol (Inderal), 40 MG PO DAILY Simvastatin (Zocor), 40 MG PO QPM Vancomycin HCl in Sodium Chlor (Vancomycin 500-0.9 mg/100Ml-%), 1,250 MG IV DAILY Scheduled PRN Acetaminophen Tab (Tylenol), 325 MG PO Q6H PRN for Pain or Fever Loperamide Hcl (Imodium), 2 MG PO Q4 PRN for Diarrhea Meclizine Hcl (Meclizine Hcl), 25 MG PO Q8 PRN for VERTIGO Nitroglycerin (Nitrostat), 0.4 MG UT PRN PRN for Chest Pain Miscellaneous Medications Insulin Lispro (Human) (Humalog) Review of Systems Constitutional: + fever, No chills, No sweats Eyes: No worsening of vision, No eye pain ENT: No hearing loss Respiratory: No cough, No wheezing, No shortness of breath Cardiovascular: No chest pain, No orthopnea, No PND, No edema, No palpitations Abdomen: + pain, No nausea, No vomiting, No diarrhea, No constipation, No GI bleeding Musculoskeletal: No joint pain, No muscle pain Genitourinary - Female: + urinary retention, No dysuria, No urinary frequency, No urinary urgency, No urinary incontinence, No hematuria Neurologic: + weakness, + balance problems (walks with cane and assistance), No paralysis, No numbness/tingling Integumentary: No rash Allergic / Immunologic: No environmental allergies, No seasonal allergies, No pet sensitivities, No food allergies Physical Exam Vital Signs Date Time Temp Pulse Resp B/P (MAP) Pulse Ox O2 Delivery O2 Flow Rate FiO2 11/30/17 19:18 97 18 117/64 96 Room Air 11/30/17 17:44 94 Room Air 11/30/17 16:55 99 11/30/17 16:50 36.8 99 18 117/64 93 Room Air General Appearance: WD/WN, no apparent distress Head: normocephalic, atraumatic Eyes: normal inspection ENT: pharynx normal Neck: supple, no adenopathy Respiratory/Chest: lungs clear, normal breath sounds, no respiratory distress, no accessory muscle use Cardiovascular: regular rate, rhythm, no edema, no murmur, normal peripheral pulses Abdomen/GI: normal bowel sounds, soft, + tenderness (LLQ) Back: normal inspection, no CVA tenderness Extremities/Musculoskelatal: no calf tenderness, normal capillary refill, no pedal edema Neurologic/Psych: alert, normal mood/affect, oriented x 3 Skin: normal color, warm/dry, no rash, + pertinent finding (No evidence of infection over PICC insertion site) Diagnostics Laboratory Results Results Past 24 Hours Test 11/30/17 17:50 11/30/17 18:18 11/30/17 19:00 Range/Units White Blood Count 19.21 4.8-10.8 K/uL Red Blood Count 3.28 4.2-5.4 M/uL Hemoglobin 10.9 12.0-16.0 g/dL Hematocrit 32.9 37-47 % Mean Corpuscular Volume 100.3 80-100 fL Mean Corpuscular Hemoglobin 33.2 25-34 pg Mean Corpuscular Hemoglobin Concent 33.1 32-36 g/dl Platelet Count 315 130-400 K/uL Mean Platelet Volume 9.2 7.4-10.4 fL Neutrophils (%) (Auto) 64.1 % Lymphocytes (%) (Auto) 26.8 % Monocytes (%) (Auto) 7.3 % Eosinophils (%) (Auto) 1.2 % Basophils (%) (Auto) 0.2 % Neutrophils # (Auto) 12.30 1.4-6.5 K/uL Lymphocytes # (Auto) 5.15 1.2-3.4 K/uL Monocytes # (Auto) 1.40 0.11-0.59 K/uL Eosinophils # (Auto) 0.24 0-0.5 K/uL Basophils # (Auto) 0.04 0-0.2 K/uL RDW Standard Deviation 59.6 36.4-46.3 fL RDW Coefficient of Variation 16.4 11.5-14.5 % Immature Granulocyte % (Auto) 0.4 % Immature Granulocyte # (Auto) 0.08 0.00-0.02 K/uL Red Blood Cell Morphology Unremarkable Prothrombin Time 10.2 9.0-12.0 SECONDS Prothromb Time International Ratio 1.0 0.9-1.1 Activated Partial Thromboplast Time 30.3 21.0-31.0 SECONDS Partial Thromboplastin Ratio 1.2 Sodium Level 137 136-145 mmol/L Potassium Level 3.5 3.5-5.1 mmol/L Chloride Level 107 98-107 mmol/L Carbon Dioxide Level 23 21-32 mmol/L Anion Gap 7.0 3-11 mmol/L Blood Urea Nitrogen 28 7-18 mg/dl Creatinine 1.48 0.60-1.20 mg/dl Estimated GFR () 36.5 Estimated GFR (Non- 31.5 BUN/Creatinine Ratio 18.6 10-20 Random Glucose 163 70-99 mg/dl Calcium Level 8.3 8.5-10.1 mg/dl Magnesium Level 2.0 1.8-2.4 mg/dl Total Bilirubin 0.4 0.2-1 mg/dl Aspartate Amino Transf (AST/SGOT) 4 15-37 U/L Alanine Aminotransferase (ALT/SGPT) 7 12-78 U/L Alkaline Phosphatase 79 45-117 U/L Total Protein 6.4 6.4-8.2 gm/dl Albumin 2.3 3.4-5.0 gm/dl Globulin 4.1 2.5-4.0 gm/dl Albumin/Globulin Ratio 0.6 0.9-2 Bedside Lactic Acid Venous 1.57 0.90-1.70 mmol/L Microbiology Results 11/30/17 Blood Culture, Received Pending 11/30/17 Blood Culture, Received Pending 11/30/17 Shiga Toxin Test, Received Pending 11/30/17 Stool Culture, Received Pending 11/30/17 C.difficile Toxin B Gene (PCR), Received Pending Diagnostic Radiology CHEST ONE VIEW PORTABLE CLINICAL HISTORY: Sepsis dyspnea COMPARISON STUDY: 11/12/2017 FINDINGS: Mild stable cardiomegaly. Placement of right-sided PICC catheter in superior vena cava. No evidence of pneumothorax. Normal atelectasis right base. IMPRESSION: PICC catheter placed in the superior vena cava. No evidence pneumothorax. Minimal infiltrate versus atelectasis right base. Impression Assessment and Plan 87 year old female with DM, CKD, CAD, HTN presents with UTI and diarrhea UTI - UA positive for nitrates and leuks. Unsure if this is resistant infection vs. persistent infection (possible loculated infection or colovesicular fistula) - IV Abx: cefepime and vancomycin - Watch for blood and urine cultures and adjust abx as necessary - U/S bladder ordered to assess for structural abnormalities and residual void Diarrhea - C.diff positive. Commence PO vancomycin - Watch for other stool studies DM - ISS with BS check ac/hs CAD/ HTN/ H/o CVA - Continue aspirin, clopidogrel, simvastatin, propranolol, lisinopril Overactive bladder - Continue Mybetriq VTE PPx - Heparin q12h DO NOT RESUSCITATE Attending addendum: I have physically seen this patient, have supervised the medical residents activities, and agree with the H&P unless as otherwise noted. Assessment and Plan: Recent enterococcus faecium UTI with completion of 10 days of vancomycin IV at [facility]/recurrent UTI symptoms/C. difficile colitis-- Patient's recurrent urinary symptoms are likely associated with poor hygiene, as nursing reports that she has not been cleaning herself well in her perineal area, and is therefore likely a new infection. Order blood cultures and urine cultures. Place on vancomycin IV and cefepime IV C. difficile colitis-- Start vancomycin orally. Start probiotics. Level of Care Med/Surg Advanced Directives Existing Advance Directive: Yes Existing Living Will: Yes Existing Power of Resident Program Specialist: Yes (Pauline (daughter) Existing Health Care Proxy: Yes Resuscitation Status DO NOT RESUSCITATE VTE Prophylaxis VTE Risk Assessment Done? Y/N: Yes Risk Level: Moderate Given or contraindicated: Unfractionated heparin SQ Social Service Consult Lives in Group Home Note Total Time: Critical Care 30 - 74 minutes Resident Tracking Resident Involvement: Resident Care Provided Care Provided: Adult Hospital Medicine
[2017-11-30] MEDS ORDERED: CEFEPIME IV 1,000 MG in DEXTROSE 5% 100ML 100 ML IV SCH (20:30)
[2017-11-30] MEDS ORDERED: POLYETHYLENE (MIRALAX) 17 GM PACK PO PRN (20:30)
[2017-11-30] MEDS ORDERED: ALUMINUM/MAGNESIUM/SIMETH (MAALOX MAX) 30 ML UDC PO PRN (20:30)
[2017-11-30] MEDS ORDERED: ONDANSETRON INJ 2 MG/ML 2 ML VIAL IV PRN (20:30)
[2017-11-30] MEDS ORDERED: MAGNESIUM HYDROXIDE SUSP 30 ML UDC PO PRN (20:30)
[2017-11-30] MEDS ORDERED: MECLIZINE HCL 25 MG TAB PO PRN (20:30)
[2017-11-30] MEDS ORDERED: NITROGLYCERIN 0.4 MG SL PER TAB CHARGE UT PRN (20:30)
[2017-11-30] MEDS ORDERED: ACETAMINOPHEN 325 MG TAB PO PRN (20:30)
[2017-11-30] MEDS ORDERED: INSDGI SC ×2 (20:44)
[2017-11-30] MEDS ORDERED: IV FLUIDS COMPLETED PRN (20:45)
[2017-11-30] MEDS ORDERED: VANCOMYCIN INJ 1,000 MG in SODIUM CHLORIDE 0.9% 250ML 250 ML IV SCH (21:00)
[2017-11-30] MEDS: INSULIN ASPART 100 UNITS/ML 3 ML PEN SC SCH (21:00)
--- NOTE | 2017-11-30 22:26 | DIAGNOSTIC IMAGING REPORT ---
(BLAD) RETROPERITONEAL LTD CLINICAL HISTORY: Persistent UTI, assess for structural issue and post void residu infection TECHNIQUE: Ultrasound COMPARISON STUDY: None FINDINGS: Bladder is uniform in appearance. Total volume is 48 cc. Patient was unable to void. IMPRESSION: Bladder volume 48 cc and with overall configuration of bladder unremarkable. The patient was unable to void. The above report was generated using voice recognition software. It may contain grammatical, syntax or spelling errors. Electronically signed by: Braeden Calhoun M.D. 11/30/2017 10:25 PM Dictated Date/Time: 11/30/2017 10:23 PM
[2017-11-30 22:37] VITALS: BP 115/73; PULSE 104; TEMP 36.4; O2SAT 98; Ht 160 cm; Wt 56.0 kg
[2017-11-30] MEDS ORDERED: PATIENT'S HEIGHT AND/OR WEIGHT NEEDED SCH (22:45)
[2017-11-30] MEDS ORDERED: VANCOMYCIN CONSULT ACTIVE PRN (22:45)
[2017-11-30] MEDS ORDERED: CEFEPIME CONSULT ACTIVE PRN (23:15)
[2017-11-30] MEDS: MAGNESIUM OXIDE 400 MG TAB PO SCH (23:54)
[2017-11-30] MEDS: POTASSIUM CITRATE 10 MEQ TAB PO SCH (23:54)
[2017-11-30] MEDS: SIMVASTATIN 40 MG TAB PO SCH (23:55)
[2017-11-30] MEDS: PENTOSAN POLYSULFATE SODIUM 100 MG CAP PO SCH (23:55)
[2017-12-01] MEDS: RASPBERRY SYRUP 5 ML UDP PO SCH ×4 (00:15→18:06)
[2017-12-01] MEDS: LORAZEPAM 0.5 MG TAB PO SCH ×3 (00:15→19:33)
[2017-12-01] MEDS: VANCOMYCIN HCL 125 MG/2.5ML SOLN PO SCH ×4 (00:15→18:06)
[2017-12-01 06:00] LABS: BASO % 0.3 %; BASO ABS # 0.04 K/uL (0-0.2); EOS % 2.8 %; EOS ABS # 0.38 K/uL (0-0.5); HEMATOCRIT 30.2 % (37-47); HEMOGLOBIN 9.7 g/dL (12.0-16.0); IG# 0.03 K/uL (0.00-0.02); LYMPH % 22.2 %; LYMPH ABS # 2.97 K/uL (1.2-3.4); MEAN CORPUSCULAR HEMOGLOBIN 32.1 pg (25-34); MEAN CORPUSCULAR HGB CONC 32.1 g/dl (32-36); MEAN PLATELET VOLUME 9.1 fL (7.4-10.4); MONO % 7.9 %; MONO ABS # 1.06 K/uL (0.11-0.59); NEUT % 66.6 %; NEUT ABS # 8.89 K/uL (1.4-6.5); PLATELET COUNT 328 K/uL (130-400); RED CELL DISTRIBUTION WIDTH CV 16.1 % (11.5-14.5); RED CELL DISTRIBUTION WIDTH SD 59.1 fL (36.4-46.3); WHITE BLOOD COUNT 13.37 K/uL (4.8-10.8)
[2017-12-01] MEDS ORDERED: INSULIN ASPART 100 UNITS/ML 3 ML PEN SC SCH (06:30)
[2017-12-01] MEDS: INSULIN ASPART 100 UNITS/ML 3 ML PEN SC SCH ×4 (06:30→21:10)
[2017-12-01 06:35] LABS: ALT/SGPT < 6 U/L (12-78); AST/SGOT 6 U/L (15-37); BLOOD UREA NITROGEN 25 mg/dl (7-18); CALCIUM 7.9 mg/dl (8.5-10.1); CARBON DIOXIDE 24 mmol/L (21-32); CREATININE 1.14 mg/dl (0.60-1.20); GLUCOSE 129 mg/dl (70-99); POTASSIUM 3.7 mmol/L (3.5-5.1); SODIUM 140 mmol/L (136-145)
[2017-12-01 06:40] LABS: ALKALINE PHOSPHATASE 66 U/L (45-117); TOTAL PROTEIN 5.3 gm/dl (6.4-8.2)
[2017-12-01 07:25] VITALS: BP 97/62; PULSE 98; TEMP 36.7; O2SAT 95
[2017-12-01 08:00] VITALS: O2SAT 95
[2017-12-01] MEDS: PROPRANOLOL HCL 20 MG TAB PO SCH (08:00)
[2017-12-01] MEDS: LISINOPRIL 40 MG TAB PO SCH (08:00)
[2017-12-01] MEDS: ASPIRIN 81 MG ECTAB PO SCH (08:14)
[2017-12-01] MEDS: POTASSIUM CITRATE 10 MEQ TAB PO SCH ×2 (08:14→19:31)
[2017-12-01] MEDS: FERROUS SULFATE 325 MG TAB PO SCH (08:14)
[2017-12-01] MEDS: CYANOCOBALAMIN 500 MCG TAB (VIT B-12) PO SCH (08:14)
[2017-12-01] MEDS: PENTOSAN POLYSULFATE SODIUM 100 MG CAP PO SCH ×3 (08:14→19:30)
[2017-12-01] MEDS: PANTOprazole SOD 40 MG TAB PO SCH (08:14)
[2017-12-01] MEDS: MIRABEGRON ER 25 MG TAB PO SCH (08:15)
[2017-12-01] MEDS: CLOPIDOGREL BISULFATE 75 MG TAB PO SCH (08:15)
[2017-12-01] MEDS: MAGNESIUM OXIDE 400 MG TAB PO SCH ×2 (08:15→19:33)
[2017-12-01] MEDS: HEPARIN SOD 5000 UNIT/0.5 ML CARP SQ SCH ×2 (08:59→19:38)
[2017-12-01 15:32] VITALS: BP 96/57; PULSE 102; TEMP 36.6; O2SAT 95
[2017-12-01] MEDS: CEFEPIME IV 2,000 MG in SYRINGE 7.5 ML IV SCH (18:56)
--- NOTE | 2017-12-01 19:15 | Progress Note ---
Subjective Date of Service: Dec 01, 2017. Subjective Pt evaluation today including: conversation w/ patient, conversation w/ family (REVISITED TO UPDATE FAMILY AT THEIR REQUEST), physical exam, chart review, lab review, review of studies feeling better less abdominal pain no further diarrhea no new complaints otherwise, wants to go back to [facility] Problem List Medical Problems: (1) Acute renal failure Status: Acute (2) C. difficile colitis Status: Acute (3) Chronic kidney disease Status: Acute (4) Constipation Status: Acute (5) Fecal impaction Status: Acute (6) Fever Status: Acute (7) Hyperkalemia Status: Acute (8) Hypertension Status: Acute (9) Leukocytosis Status: Acute (10) Proctitis Status: Acute (11) Weakness Status: Acute Review of Systems all other ROS otherwise negative except for as above Objective Vital Signs Date Time Temp Pulse Resp B/P (MAP) Pulse Ox O2 Delivery O2 Flow Rate FiO2 12/01/17 16:00 Room Air 12/01/17 15:32 36.6 102 20 96/57 (70) 95 Room Air 12/01/17 08:00 95 Room Air 12/01/17 07:25 36.7 98 18 97/62 (74) 95 Room Air 12/01/17 00:00 Room Air 11/30/17 22:37 36.4 104 16 115/73 98 Room Air 11/30/17 20:38 101 18 117/61 97 Room Air 11/30/17 19:18 97 18 117/64 96 Room Air Physical Exam General Appearance: no apparent distress Eyes: EOMI ENT: hearing grossly normal Neck: trachea midline Respiratory/Chest: no respiratory distress, no accessory muscle use Extremities: normal range of motion Neurologic/Psychiatric: solar sales representative and assessor II-XII nml as tested, alert Laboratory Results Last 24 Hours Test 11/30/17 23:15 12/01/17 05:23 12/01/17 07:42 12/01/17 11:38 Bedside Glucose 153 mg/dl 147 mg/dl 180 mg/dl White Blood Count 13.37 K/uL Red Blood Count 3.02 M/uL Hemoglobin 9.7 g/dL Hematocrit 30.2 % Mean Corpuscular Volume 100.0 fL Mean Corpuscular Hemoglobin 32.1 pg Mean Corpuscular Hemoglobin Concent 32.1 g/dl Platelet Count 328 K/uL Mean Platelet Volume 9.1 fL Neutrophils (%) (Auto) 66.6 % Lymphocytes (%) (Auto) 22.2 % Monocytes (%) (Auto) 7.9 % Eosinophils (%) (Auto) 2.8 % Basophils (%) (Auto) 0.3 % Neutrophils # (Auto) 8.89 K/uL Lymphocytes # (Auto) 2.97 K/uL Monocytes # (Auto) 1.06 K/uL Eosinophils # (Auto) 0.38 K/uL Basophils # (Auto) 0.04 K/uL RDW Standard Deviation 59.1 fL RDW Coefficient of Variation 16.1 % Immature Granulocyte % (Auto) 0.2 % Immature Granulocyte # (Auto) 0.03 K/uL Sodium Level 140 mmol/L Potassium Level 3.7 mmol/L Chloride Level 109 mmol/L Carbon Dioxide Level 24 mmol/L Anion Gap 7.0 mmol/L Blood Urea Nitrogen 25 mg/dl Creatinine 1.14 mg/dl Est Creatinine Clear Calc Drug Dose 28.7 ml/min Estimated GFR () 50.1 Estimated GFR (Non- 43.2 BUN/Creatinine Ratio 22.3 Random Glucose 129 mg/dl Calcium Level 7.9 mg/dl Total Bilirubin 0.3 mg/dl Aspartate Amino Transf (AST/SGOT) 6 U/L Alanine Aminotransferase (ALT/SGPT) < 6 U/L Alkaline Phosphatase 66 U/L Total Protein 5.3 gm/dl Albumin 2.0 gm/dl Globulin 3.3 gm/dl Albumin/Globulin Ratio 0.6 Test 12/01/17 16:53 Bedside Glucose 145 mg/dl Assessment and Plan sepsis, due to UTI and Cdiff -both getting better, sepsis improving UTI - gram negative rods, new infection - on cefepime for now. once ID&S back streamline to as narrow of an antibiotic as possible given Cdiff Cdiff colitis - improving on vanco - would treat for ~7 days further than need for UTI DM - ISS with BS check ac/hs, sugars reasonable - continue to follow closely with this high risk medication CAD/ HTN/ H/o CVA - Continue aspirin, clopidogrel, simvastatin, propranolol, lisinopril Overactive bladder - Continue Mybetriq VTE PPx - Heparin q12h DO NOT RESUSCITATE anticipate return to [facility] once final ID&S on urine returns to allow for definitive treatment plan
[2017-12-01] MEDS: SIMVASTATIN 40 MG TAB PO SCH (19:31)
[2017-12-01 23:57] VITALS: BP 93/60; PULSE 97; TEMP 36.3; O2SAT 96
[2017-12-02] MEDS: RASPBERRY SYRUP 5 ML UDP PO SCH ×4 (00:28→18:03)
[2017-12-02] MEDS: VANCOMYCIN HCL 125 MG/2.5ML SOLN PO SCH ×4 (00:28→18:03)
[2017-12-02 07:30] VITALS: BP 108/65; PULSE 103; TEMP 36.5; O2SAT 96
[2017-12-02] MEDS: LISINOPRIL 40 MG TAB PO SCH (07:39)
[2017-12-02] MEDS: CYANOCOBALAMIN 500 MCG TAB (VIT B-12) PO SCH (07:39)
[2017-12-02] MEDS: PANTOprazole SOD 40 MG TAB PO SCH (07:39)
[2017-12-02] MEDS: LORAZEPAM 0.5 MG TAB PO SCH ×2 (07:39→18:56)
[2017-12-02] MEDS: POTASSIUM CITRATE 10 MEQ TAB PO SCH ×2 (07:39→18:58)
[2017-12-02] MEDS: CLOPIDOGREL BISULFATE 75 MG TAB PO SCH (07:39)
[2017-12-02] MEDS: ASPIRIN 81 MG ECTAB PO SCH (07:40)
[2017-12-02] MEDS: PENTOSAN POLYSULFATE SODIUM 100 MG CAP PO SCH ×3 (07:40→18:58)
[2017-12-02] MEDS: MIRABEGRON ER 25 MG TAB PO SCH (07:40)
[2017-12-02] MEDS: FERROUS SULFATE 325 MG TAB PO SCH (07:40)
[2017-12-02] MEDS: PROPRANOLOL HCL 20 MG TAB PO SCH (07:40)
[2017-12-02] MEDS: MAGNESIUM OXIDE 400 MG TAB PO SCH ×2 (07:40→18:59)
--- NOTE | 2017-12-02 08:06 | Clinical Documentation Query ---
HAO Holguin : CLINICAL DOCUMENTATION QUERY Patient is an 87 year old female admitted for treatment of sepsis due to UTI and C.Difficile colitis. Admission BUN and creatinine 28 mg/dl and 1.48 mg, with values the day prior to admission of 29 mg/dl and 1.77 mg/dl on outpatient testing. Follow up chemistries the day after admission demonstrated improvement to 25 mg/dl and 1.14 mg/dl. Additionally, estimated GFR range < 50 ml/min dating back to at least 02/2015. She was treated with IVF resuscitation and treatement of underlying infections. In your clinical opinion is this patient being managed for: ( x) DOLORES on CKD III ( ) Not Agree ( ) Other explanation of clinical findings (Please Explain) ( ) Unable to determine (Please Define) ( ) Need to Discuss The medical record reflects the following clinical findings, treatment, and risk factors. Clinical Indicators: As above Treatment: She was treated with IVF resuscitation and treatement of underlying infections and is being monitored with serial chemistries Risk Factors: Age Please clarify and document your clinical opinion in the progress notes and discharge summary. Terms such as "probable", "suspected", "likely", "questionable", "possible", or "still to be ruled out" are acceptable. IF IN AGREEMENT, YOU MUST DOCUMENT ABOVE DIAGNOSTIC STATEMENT IN DAILY PROGRESS NOTES AND DISCHARGE SUMMARY. This document is not part of the patient's record. Thank You, Zach Best, SHIKHA [phone]
[2017-12-02] MEDS: HEPARIN SOD 5000 UNIT/0.5 ML CARP SQ SCH ×2 (08:27→19:13)
[2017-12-02] MEDS: INSULIN ASPART 100 UNITS/ML 3 ML PEN SC SCH ×4 (08:27→21:07)
[2017-12-02 09:42] LABS: HEMATOCRIT 32.1 % (37-47); HEMOGLOBIN 10.7 g/dL (12.0-16.0); MEAN CORPUSCULAR HEMOGLOBIN 33.3 pg (25-34); MEAN CORPUSCULAR HGB CONC 33.3 g/dl (32-36); PLATELET COUNT 358 K/uL (130-400); RED CELL DISTRIBUTION WIDTH CV 15.7 % (11.5-14.5); RED CELL DISTRIBUTION WIDTH SD 57.5 fL (36.4-46.3); WHITE BLOOD COUNT 10.37 K/uL (4.8-10.8)
[2017-12-02 10:12] LABS: CALCIUM 8.5 mg/dl (8.5-10.1); CREATININE 1.35 mg/dl (0.60-1.20); POTASSIUM 4.1 mmol/L (3.5-5.1)
[2017-12-02] MEDS ORDERED: SODIUM CHLORIDE 0.9% 1000ML 1,000 ML IV SCH (11:45)
--- NOTE | 2017-12-02 11:51 | Hospitalist Progress Note ---
Hospitalist Progress Note Date of Service Dec 02, 2017. Subjective Pt evaluation today including: conversation w/ patient, physical exam, chart review, lab review, review of inpatient medication list Pain: Lower abdominal fullness PO Intake: Tolerating PO diet Voiding: voiding difficulty (difficulty emptying, frequent small voids) Patient reports feeling a bit better. She still complains of generalized weakness and fatigue. She complains of a near constant fullness/pressure in her lower abdomen when she can't void completely. Per nursing she is urinating very frequently but not much is coming out each time. The patient denies fevers , chills, sweats, chest pain, palpitations, claudication, cough, wheezing, shortness of breath, nausea, vomiting, dysuria, hematuria, urinary retention, paralysis, weakness, numbness and tingling. Additional Comments: See HPI for pertinent positives and negatives. All other systems reviewed and negative. Objective Vital Signs Date Time Temp Pulse Resp B/P (MAP) Pulse Ox O2 Delivery O2 Flow Rate FiO2 12/02/17 08:00 Room Air 12/02/17 07:30 36.5 103 20 108/65 (79) 96 Room Air 12/01/17 23:57 36.3 97 17 93/60 (71) 96 Room Air 12/01/17 23:15 Room Air 12/01/17 16:00 Room Air 12/01/17 15:32 36.6 102 20 96/57 (70) 95 Room Air Physical Exam Notes: General appearance: Well-developed, well-nourished, no apparent distress Head: Normocephalic, atraumatic Eyes: Normal inspection, PERRL, EOMI ENT: Normal ENT inspection, hearing grossly normal, pharynx normal Neck: Supple, no JVD, trachea midline Respiratory/Chest: +Decreased breath sounds. Lungs clear to auscultation, no respiratory distress Cardiovascular: Regular rate & rhythm, no gallop, no murmur Abdomen/GI: +Lower abdomen mildly TTP. Normal bowel sounds, soft Extremities/Musculoskeletal: Normal inspection, no calf tenderness, no pedal edema Neurological/Psych: Alert, normal mood/affect, oriented x 3 Skin: Normal color, warm/dry, no rash Laboratory Results Last 24 Hours Test 12/01/17 11:38 12/01/17 16:53 12/01/17 20:35 12/02/17 08:01 Bedside Glucose 180 mg/dl 145 mg/dl 79 mg/dl 144 mg/dl Test 12/02/17 09:29 White Blood Count 10.37 K/uL Red Blood Count 3.21 M/uL Hemoglobin 10.7 g/dL Hematocrit 32.1 % Mean Corpuscular Volume 100.0 fL Mean Corpuscular Hemoglobin 33.3 pg Mean Corpuscular Hemoglobin Concent 33.3 g/dl RDW Standard Deviation 57.5 fL RDW Coefficient of Variation 15.7 % Platelet Count 358 K/uL Mean Platelet Volume 9.0 fL Sodium Level 137 mmol/L Potassium Level 4.1 mmol/L Chloride Level 106 mmol/L Carbon Dioxide Level 23 mmol/L Anion Gap 8.0 mmol/L Blood Urea Nitrogen 19 mg/dl Creatinine 1.35 mg/dl Est Creatinine Clear Calc Drug Dose 24.3 ml/min Estimated GFR () 40.8 Estimated GFR (Non- 35.2 BUN/Creatinine Ratio 13.9 Random Glucose 178 mg/dl Calcium Level 8.5 mg/dl Chemistry Specimen Hemolysis Assessment and Plan 87 y/o female with a history of CAD, HTN, HLD, CVA, DM II, anxiety, and overactive bladder who presents with fever, abdominal pain, and diarrhea Sepsis secondary to UTI--improving. Appears to be new infection vs previous resistant infection -Admit to med/surg -Leukocytosis resolved, down to 10K from 13K -Urine culture positive for GNR, further identification and sensitivities pending -Continue cefepime for now pending sensitivities C. diff--ongoing -Continue vanc 125 mg PO q6h. 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 Continue with ISS for now -Insulin sliding scale -Check BSGs q ac and qhs Anxiety -Continue lorazepam 0.5 mg PO BID Overactive bladder - Continue Mybetriq 50 mg PO qd DVT prophylaxis -Heparin 5000 units SC q12h Code Status -Level V, DO NOT RESUSCITATE Dispo -From [facility], can likely return once final urine culture and sensitivities back to confirm outpt regimen
[2017-12-02 17:12] VITALS: BP 111/72; PULSE 90; TEMP 36.4; O2SAT 99
[2017-12-02] MEDS: CEFEPIME IV 2,000 MG in SYRINGE 7.5 ML IV SCH (18:56)
[2017-12-02] MEDS: SIMVASTATIN 40 MG TAB PO SCH (18:57)
[2017-12-03 00:41] VITALS: BP 124/75; PULSE 81; TEMP 36.4; O2SAT 96
[2017-12-03] MEDS: RASPBERRY SYRUP 5 ML UDP PO SCH ×3 (05:35→11:46)
[2017-12-03] MEDS: VANCOMYCIN HCL 125 MG/2.5ML SOLN PO SCH ×3 (05:35→11:46)
[2017-12-03 07:53] VITALS: BP 121/76; PULSE 97; TEMP 36.4; O2SAT 98
[2017-12-03] MEDS: LORAZEPAM 0.5 MG TAB PO SCH (07:54)
[2017-12-03] MEDS: POTASSIUM CITRATE 10 MEQ TAB PO SCH (07:54)
[2017-12-03] MEDS: MIRABEGRON ER 25 MG TAB PO SCH (07:54)
[2017-12-03] MEDS: MAGNESIUM OXIDE 400 MG TAB PO SCH (07:54)
[2017-12-03] MEDS: CYANOCOBALAMIN 500 MCG TAB (VIT B-12) PO SCH (07:54)
[2017-12-03] MEDS: PENTOSAN POLYSULFATE SODIUM 100 MG CAP PO SCH (07:55)
[2017-12-03] MEDS: PANTOprazole SOD 40 MG TAB PO SCH (07:55)
[2017-12-03] MEDS: CLOPIDOGREL BISULFATE 75 MG TAB PO SCH (07:55)
[2017-12-03] MEDS: PROPRANOLOL HCL 20 MG TAB PO SCH (07:55)
[2017-12-03] MEDS: ASPIRIN 81 MG ECTAB PO SCH (07:55)
[2017-12-03] MEDS: FERROUS SULFATE 325 MG TAB PO SCH (07:55)
[2017-12-03] MEDS: HEPARIN SOD 5000 UNIT/0.5 ML CARP SQ SCH (07:56)
[2017-12-03 08:04] LABS: HEMATOCRIT 30.9 % (37-47); HEMOGLOBIN 10.2 g/dL (12.0-16.0); MEAN CELL VOLUME 99.7 fL (80-100); MEAN CORPUSCULAR HEMOGLOBIN 32.9 pg (25-34); PLATELET COUNT 372 K/uL (130-400); RED CELL DISTRIBUTION WIDTH CV 15.7 % (11.5-14.5); RED CELL DISTRIBUTION WIDTH SD 57.2 fL (36.4-46.3); WHITE BLOOD COUNT 8.63 K/uL (4.8-10.8)
[2017-12-03 08:27] LABS: CALCIUM 8.1 mg/dl (8.5-10.1); CREATININE 0.97 mg/dl (0.60-1.20)
[2017-12-03] MEDS: INSULIN ASPART 100 UNITS/ML 3 ML PEN SC SCH ×2 (08:45→12:46)
[2017-12-03] MEDS ORDERED: CEFD300C3 PO ×2 (12:37)
[2017-12-03] MEDS ORDERED: RSPS5 PO ×2 (12:37)
[2017-12-03] MEDS ORDERED: VANC1SUS PO ×2 (12:37)
--- NOTE | 2017-12-03 12:52 | Discharge Instructions ---
Discharge Instructions Date of Service Dec 03, 2017. Admission Reason for Admission: Leukocytosis,Uti Discharge Discharge Diagnosis / Problem: Sepsis secondary to urinary tract infection Discharge Goals Goal(s): Decrease discomfort, Improve function, Diagnostic testing, Therapeutic intervention Activity Recommendations Activity Level: Assistance Required Therapies: Physical Therapy, Occupational Therapy . Additional Information Patient informed of condition: Yes Advance Directives: Yes DNR: Yes Level of Care: Skilled Communicable Disease: Yes (C. difficile colitis) Prognosis: Stable King Catheter: No Instructions / Follow-Up Instructions / Follow-Up Patient was admitted to the hospital after presenting with fever, abdominal pain and diarrhea. She was found to be septic secondary to a urinary tract infection. The patient was also found to have C. diff colitis. She was initially treated with IV antibiotics. Her urine culture was positive for enterobacter cloacae that was pansensitive. She was also treated with oral vancomycin for the C. diff. As she is feeling better and now on all oral medications, she is stable to return to [facility]. Medications: *Please take Omnicef 300 mg PO BID x 8 more days to complete a 10 day course. *Please take vancomycin 125 mg PO QID x 15 more days, mix with raspberry syrup. *Stop IV vancomycin. *Continue other home medications as prescribed. Follow up: *Please follow up with primary care provider within 1 week of discharge. Please seek medical attention if patient experiences fevers, chills, sweats, dizziness/lightheadedness, loss of consciousness, chest pain, shortness of breath, nausea, vomiting, numbness or tingling. Current Hospital Diet Patient's current hospital diet: Diabetes Type 2 Diet Discharge Diet Recommended Diet: Diabetes Type 2 Diet Pending Studies Studies pending at discharge: no Physician Orders On Transfer Special Precautions: Fall precautions Vital Signs: Routine Laboratory Results Hemoglobin A1c Test 11/13/17 06:56 Range/Units Estimated Average Glucose 128 mg/dl Hemoglobin A1c 6.1 H 4.5-5.6 % Medical Emergencies . Who to Call and When: Medical Emergencies: If at any time you feel your situation is an emergency, please call 911 immediately. . Non-Emergent Contact Non-Emergency issues call your: Primary Care Provider Call Non-Emergent contact if: you have a fever, you have any medication questions . Past History Medical & Surgical History: (1) Sepsis (2) Urinary tract infection (3) C. difficile colitis . "Provider Documentation" section prepared by Caroline Law. . Core Measure Problem Core Measures: None
[2017-12-03 12:54] VITALS: BP 121/76; PULSE 97; TEMP 36.4; O2SAT 98
--- NOTE | 2017-12-03 13:48 | Discharge Summary ---
Discharge Summary Date of Service Dec 03, 2017. Discharge Summary Admission Date: Dec 01, 2017 at 19:10 Discharge Date: Dec 03, 2017 Discharge Disposition: jail facility ([facility]) Principal Diagnosis: Sepsis secondary to UTI, C. diff colitis Problems/Secondary Diagnoses: CAD, HTN, HLD, CVA, DM II, anxiety, overactive bladder Immunizations: Have You Had Influenza Vaccine: No Influenza Vaccine Date: Sep 14, 2013 History of Tetanus Vaccine?: UTD History of Pneumococcal: Unknown History of Hepatitis B Vaccine: Unknown Procedures: CHEST ONE VIEW PORTABLE CLINICAL HISTORY: Sepsis dyspnea COMPARISON STUDY: 11/12/2017 FINDINGS: Mild stable cardiomegaly. Placement of right-sided PICC catheter in superior vena cava. No evidence of pneumothorax. Normal atelectasis right base. IMPRESSION: PICC catheter placed in the superior vena cava. No evidence pneumothorax. Minimal infiltrate versus atelectasis right base. (BLAD) RETROPERITONEAL LTD CLINICAL HISTORY: Persistent UTI, assess for structural issue and post void residu infection TECHNIQUE: Ultrasound COMPARISON STUDY: None FINDINGS: Bladder is uniform in appearance. Total volume is 48 cc. Patient was unable to void. IMPRESSION: Bladder volume 48 cc and with overall configuration of bladder unremarkable. The patient was unable to void. Medication Reconciliation New Medications: Cefdinir (Cefdinir) 300 Mg Cap 300 MG PO BID@0700,1900 for 8 Days, #16 CAP Raspberry (Raspberry Syrup) 5 Ml/Cup Syrp 5 ML PO QID for 15 Days, #60 DOSE Administer with vancomycin Vancomycin HCl (Vancomycin HCl + Syrspend) 50 Mg/Ml Jessica 125 MG PO QID for 15 Days, #60 DOSE Continued Medications: Acetaminophen Tab (Tylenol) 325 Mg Tab 325 MG PO Q6H PRN for Pain or Fever Aspirin (Aspirin Ec) 81 Mg Tab 81 MG PO DAILY Clopidogrel (Plavix) 75 Mg Tab 75 MG PO DAILY, TAB Cyanocobalamin (Vitamin B-12 1000 Mcg) 1,000 Mcg Tab 1000 MCG PO DAILY, TAB Ferrous Sulfate (Ferrous Sulfate) 325 Mg Tab 325 MG PO QAM Insulin Glargine (Lantus) 100 Unit/Ml Inj 6 UNITS SC QPM Insulin Lispro (Human) (Humalog) 100 Unit/Ml Inj SLIDING SCALE Lisinopril (Zestril) 40 Mg Tab 40 MG PO DAILY, TAB Loperamide Hcl (Imodium) 2 Mg Cap 2 MG PO Q4 PRN for Diarrhea, #30 CAP 1 Refill Lorazepam (Lorazepam) 0.5 Mg Tab 0.5 MG PO BID Magnesium (Magnesium 250 mg) 1 Tab Tab 500 MG PO BID TWO 250 MG TABLETS TWICE DAILY Meclizine Hcl (Meclizine Hcl) 25 Mg Tab 25 MG PO Q8 PRN for VERTIGO Mirabegron (Myrbetriq Er) 50 Mg Tab 50 MG PO DAILY, TAB Nitroglycerin (Nitrostat) 0.4 Mg Tab 0.4 MG UT PRN PRN for Chest Pain Omeprazole (Prilosec) 40 Mg Cap 40 MG PO QAM, CAP Pentosan Polysulfate Sodium (Elmiron) 100 Mg Cap 100 MG PO TID, CAP TAKE THIS MEDICATION THREE TIMES A DAY BEFORE MEALS. Potassium Citrate (Potassium Citrate) 10 Meq Tab 10 MEQ PO BID Propranolol (Inderal) 20 Mg Tab 40 MG PO DAILY, TAB Simvastatin (Zocor) 40 Mg Tab 40 MG PO QPM, TAB Discontinued Medications: Vancomycin HCl in Sodium Chlor (Vancomycin 500-0.9 mg/100Ml-%) 1 Inj Inj 1250 MG IV DAILY for 7 Days, #7 DOSE 0 Refills Discharge Exam Patient reports feeling better. She states she feels some fatigue still. She feels some lower abdominal pressure before she has to void, but this resolved post void. She reports some mild dysuria, but this is improving. She still reports frequent but small loose stools. The patient denies fevers, chills, sweats, chest pain, palpitations, claudication, cough, wheezing, shortness of breath, nausea, vomiting, hematuria, urinary retention, paralysis, weakness, numbness and tingling. Constitutional: +Fatigue. No fever, No chills, No sweats Eyes: No worsening of vision, No eye pain, No diplopia ENT: No hearing loss, No nasal symptoms, No trouble swallowing Respiratory: No cough, No wheezing, No shortness of breath Cardiovascular: No chest pain, No claudication, No palpitations Abdomen: +Lower abdominal pressure prior to voiding. Diarrhea. No nausea, No vomiting Musculoskeletal: No joint pain, No muscle pain, No swelling Genitourinary - Female: +Dysuria improving. No urinary retention, No hematuria Neurologic: No paralysis, No weakness, No numbness/tingling Integumentary: No rash, No itch, No color change General appearance: Well-developed, well-nourished, no apparent distress Head: Normocephalic, atraumatic Eyes: Normal inspection, PERRL, EOMI ENT: Normal ENT inspection, hearing grossly normal, pharynx normal Neck: Supple, no JVD, trachea midline Respiratory/Chest: Lungs clear to auscultation, normal breath sounds, no respiratory distress Cardiovascular: Regular rate & rhythm, no gallop, no murmur Abdomen/GI: Normal bowel sounds, non-tender, soft Extremities/Musculoskeletal: Normal inspection, no calf tenderness, no pedal edema Neurological/Psych: Alert, normal mood/affect, oriented x 3 Skin: Normal color, warm/dry, no rash Hospital Course 87 y/o female with a history of CAD, HTN, HLD, CVA, DM II, anxiety, and overactive bladder who presents with fever, abdominal pain, and diarrhea Sepsis secondary to UTI--improving. Appears to be new infection rather than previous resistant infection -Admit to med/surg -Leukocytosis resolved, remains WNL -Urine culture positive for enterobacter cloacae, pansensitive -Change cefepime to Omnicef 300 mg PO BID x 8 more days to complete 10 day course C. diff--ongoing -Continue vanc 125 mg PO q6h. Day #2. 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 Back to baseline -Received 1L slowly, lisinopril had been held but can resume on discharge CAD, HTN, HLD--stable -Continue ASA, Plavix, lisinopril 40 mg PO qd, propranolol 40 mg PO qd, and Zocor 40 mg PO qd DM II--last HgbA1c was 6.1 on 11/13/17 -Lantus 6 units SC qpm -Insulin sliding scale -Check BSGs q ac and qhs Anxiety -Continue lorazepam 0.5 mg PO BID Overactive bladder - Continue Mybetriq 50 mg PO qd DVT prophylaxis -Heparin 5000 units SC q12h Code Status -Level V, DO NOT RESUSCITATE Dispo -From [facility], bed hold, no insurance auth -Medically stable to return to SNF, on PO abx Total Time Spent: Greater than 30 minutes This includes examination of the patient, discharge planning, medication reconciliation, and communication with other providers. Discharge Instructions Please refer to the electronic Patient Visit Report (Discharge Instructions) for additional information. Additional Copies To Mukund Green Paul, M.D.
[2017-12-03] MEDS ORDERED: LACTOBACILLUS ACIDOPHILUS (FLORANEX) TAB PO SCH (14:00)
[2017-12-03] MEDS ORDERED: CEFDINIR 300 MG CAP PO SCH (19:00)
== END 2017-12-03 13:35 | DRG 872 ==
LOC: EDBD 16:43 → C.EDC 16:44 → C.MS4W 20:27 → ENRESERV 20:38 → OBSVTOIN 12-01 19:10
PROVIDERS: ADMIT Hospitalist; ATTEND Hospitalist
DX: A41.59 Other Gram-negative sepsis (principal); N39.0 Urinary tract infection, site not specified; A04.72 Enterocolitis due to Clostridium difficile, not specified as recurrent; N17.9 Acute kidney failure, unspecified; Z86.73 Personal history of transient ischemic attack (TIA), and cerebral infarction without residual deficits; Z79.82 Long term (current) use of aspirin; N18.3 Chronic kidney disease, stage 3 (moderate); I12.9 Hypertensive chronic kidney disease with stage 1 through stage 4 chronic kidney disease, or unspecified chronic kidney disease; E11.21 Type 2 diabetes mellitus with diabetic nephropathy; Z79.4 Long term (current) use of insulin; I25.10 Atherosclerotic heart disease of native coronary artery without angina pectoris; N32.81 Overactive bladder; F41.9 Anxiety disorder, unspecified; K59.00 Constipation, unspecified; E87.5 Hyperkalemia; K62.89 Other specified diseases of anus and rectum; Z66 Do not resuscitate

== ENCOUNTER → 2017-11-30 | Outpatient (CLI) | payer OTHER ==
[~2017-11-30] MED LIST changes: +ACET325T96 PO; +CEFD300C3 PO; -CPR500 PO; -GLC/500 PO; +IMD2X PO; +INSDGI SC; +INSU100I; -MTR500 PO; -POTA1080 PO; +PROP80TA2 PO; +RSPS5 PO; +URC10 PO; +VANC1INJ71 IV; +VANC1SUS PO
[2017-11-30 11:02] LABS: ALBUMIN 2.3 gm/dl (3.4-5.0); ALT/SGPT 7 U/L (12-78); AST/SGOT 8 U/L (15-37); BLOOD UREA NITROGEN 29 mg/dl (7-18); CALCIUM 8.1 mg/dl (8.5-10.1); CARBON DIOXIDE 23 mmol/L (21-32); CREATININE 1.77 mg/dl (0.60-1.20); GLUCOSE 253 mg/dl (70-99); POTASSIUM 4.1 mmol/L (3.5-5.1); SODIUM 136 mmol/L (136-145)
[2017-11-30 11:04] LABS: ALKALINE PHOSPHATASE 79 U/L (45-117); HEMATOCRIT 32.3 % (37-47); HEMOGLOBIN 10.6 g/dL (12.0-16.0); MEAN CELL VOLUME 101.3 fL (80-100); MEAN CORPUSCULAR HEMOGLOBIN 33.2 pg (25-34); MEAN CORPUSCULAR HGB CONC 32.8 g/dl (32-36); MEAN PLATELET VOLUME 9.6 fL (7.4-10.4); PLATELET COUNT 341 K/uL (130-400); RED CELL DISTRIBUTION WIDTH CV 16.5 % (11.5-14.5); RED CELL DISTRIBUTION WIDTH SD 61.3 fL (36.4-46.3); TOTAL PROTEIN 5.5 gm/dl (6.4-8.2); WHITE BLOOD COUNT 19.24 K/uL (4.8-10.8)
[2017-11-30 11:05] LABS: BASO % 0.2 %; BASO ABS # 0.04 K/uL (0-0.2); EOS % 0.6 %; EOS ABS # 0.11 K/uL (0-0.5); IG# 0.05 K/uL (0.00-0.02); LYMPH % 17.2 %; MONO ABS # 1.54 K/uL (0.11-0.59); NEUT % 73.7 %
== END ==
LOC: C.LABCC 10:31 → EDSTATUS 12-03 12:37
PROVIDERS: ATTEND Internal Medicine
DX: R50.9 Fever, unspecified (principal); R41.82 Altered mental status, unspecified

== ENCOUNTER → 2018-01-09 | Outpatient (CLI) | payer OTHER ==
[~2018-01-09] MED LIST changes: +ACET-1693 PO; -ACET325T96 PO; +CEFD300C3 PO; +INSDGI SC; -INSDGIPEN SC; +INSU100I; -POLY335019 PO; +PROP20TA67 PO; -PROP80TA2 PO; +RSPS5 PO; -VANC1INJ71 IV; +VANC1SUS PO
[2018-01-09 09:11] LABS: BASO % 0.2 %; BASO ABS # 0.02 K/uL (0-0.2); EOS % 1.9 %; EOS ABS # 0.19 K/uL (0-0.5); HEMATOCRIT 35.5 % (37-47); HEMOGLOBIN 11.7 g/dL (12.0-16.0); IG# 0.03 K/uL (0.00-0.02); LYMPH % 29.7 %; LYMPH ABS # 2.94 K/uL (1.2-3.4); MEAN CELL VOLUME 95.9 fL (80-100); MEAN CORPUSCULAR HEMOGLOBIN 31.6 pg (25-34); MEAN PLATELET VOLUME 9.6 fL (7.4-10.4); MONO % 11.5 %; MONO ABS # 1.14 K/uL (0.11-0.59); NEUT % 56.4 %; NEUT ABS # 5.58 K/uL (1.4-6.5); PLATELET COUNT 348 K/uL (130-400); RED CELL DISTRIBUTION WIDTH CV 14.8 % (11.5-14.5); RED CELL DISTRIBUTION WIDTH SD 52.4 fL (36.4-46.3)
[2018-01-09 09:22] LABS: BLOOD UREA NITROGEN 34 mg/dl (7-18); CALCIUM 8.3 mg/dl (8.5-10.1); CARBON DIOXIDE 28 mmol/L (21-32); CREATININE 1.83 mg/dl (0.60-1.20); GLUCOSE 160 mg/dl (70-99); POTASSIUM 3.9 mmol/L (3.5-5.1); SODIUM 140 mmol/L (136-145)
== END ==
LOC: C.LABCC 09:03
PROVIDERS: ATTEND Internal Medicine
DX: A04.72 Enterocolitis due to Clostridium difficile, not specified as recurrent (principal)

== ENCOUNTER → 2018-02-01 | Outpatient (CLI) | payer OTHER ==
[2018-02-01 14:59] LABS: BASO % 0.3 %; BASO ABS # 0.03 K/uL (0-0.2); EOS % 3.1 %; EOS ABS # 0.34 K/uL (0-0.5); HEMOGLOBIN 10.9 g/dL (12.0-16.0); IG# 0.03 K/uL (0.00-0.02); LYMPH % 31.5 %; LYMPH ABS # 3.51 K/uL (1.2-3.4); MEAN CORPUSCULAR HEMOGLOBIN 30.7 pg (25-34); MEAN PLATELET VOLUME 9.1 fL (7.4-10.4); MONO ABS # 1.34 K/uL (0.11-0.59); NEUT % 52.8 %; NEUT ABS # 5.88 K/uL (1.4-6.5); PLATELET COUNT 383 K/uL (130-400); RED CELL DISTRIBUTION WIDTH CV 14.3 % (11.5-14.5); RED CELL DISTRIBUTION WIDTH SD 48.8 fL (36.4-46.3); WHITE BLOOD COUNT 11.13 K/uL (4.8-10.8)
[2018-02-01 15:10] LABS: BLOOD UREA NITROGEN 27 mg/dl (7-18); CALCIUM 8.7 mg/dl (8.5-10.1); CARBON DIOXIDE 25 mmol/L (21-32); CREATININE 1.32 mg/dl (0.60-1.20); GLUCOSE 101 mg/dl (70-99); POTASSIUM 4.4 mmol/L (3.5-5.1); SODIUM 136 mmol/L (136-145)
[2018-02-01 15:13] LABS: CHOLESTEROL 121 mg/dl (0-200); LDL CHOLESTEROL CALCULATED 56 mg/dl
== END ==
LOC: C.LABCC 09:58
PROVIDERS: ATTEND Internal Medicine
DX: R51 Headache (principal); D64.9 Anemia, unspecified; I12.9 Hypertensive chronic kidney disease with stage 1 through stage 4 chronic kidney disease, or unspecified chronic kidney disease; N18.3 Chronic kidney disease, stage 3 (moderate)

== ENCOUNTER → 2018-02-19 | Outpatient (CLI) | payer OTHER | LOC: C.LABCC 09:06 | PROVIDERS: ATTEND Internal Medicine | DX: R19.7 Diarrhea, unspecified (principal) ==

== ENCOUNTER → 2018-03-02 | Outpatient (CLI) | payer OTHER ==
[~2018-03-02] MED LIST changes: +ASCO500T16 PO; -INSU100I; +INSU100I SQ; +LCTX PO; +LVMIPEN SQ; +MULT-506 PO
[2018-03-02 15:21] LABS: HEMATOCRIT 31.2 % (37-47); HEMOGLOBIN 10.2 g/dL (12.0-16.0)
== END ==
LOC: C.LABCC 10:01
PROVIDERS: ATTEND Internal Medicine
DX: K92.2 Gastrointestinal hemorrhage, unspecified (principal)

== ENCOUNTER 2018-03-03 07:42 | Emergency (ER) | payer OTHER ==
[~2018-03-03] VITALS: Ht 157.5 cm; Wt 55.8 kg
[~2018-03-03 07:42] MED LIST changes: -ASCO500T16 PO; -LCTX PO; -LVMIPEN SQ; -MULT-506 PO
[2018-03-03 08:08] VITALS: TEMP 36.4; Ht 157.5 cm; Wt 55.8 kg
[2018-03-03] MEDS ORDERED: ONDANSETRON INJ 2 MG/ML 2 ML VIAL IV STA (08:19)
[2018-03-03] MEDS ORDERED: PANTOprazole INJ 40 MG in SYRINGE 0 ML IV ONE (08:30)
[2018-03-03 08:32] LABS: BASO % 0.3 %; BASO ABS # 0.04 K/uL (0-0.2); HEMATOCRIT 31.8 % (37-47); HEMOGLOBIN 10.6 g/dL (12.0-16.0); IG# 0.05 K/uL (0.00-0.02); LYMPH % 28.8 %; LYMPH ABS # 4.28 K/uL (1.2-3.4); MEAN CELL VOLUME 92.4 fL (80-100); MEAN CORPUSCULAR HEMOGLOBIN 30.8 pg (25-34); MEAN CORPUSCULAR HGB CONC 33.3 g/dl (32-36); MEAN PLATELET VOLUME 8.4 fL (7.4-10.4); MONO % 8.9 %; MONO ABS # 1.32 K/uL (0.11-0.59); NEUT % 59.7 %; NEUT ABS # 8.87 K/uL (1.4-6.5); PLATELET COUNT 517 K/uL (130-400); RED CELL DISTRIBUTION WIDTH CV 17.6 % (11.5-14.5); RED CELL DISTRIBUTION WIDTH SD 56.3 fL (36.4-46.3); WHITE BLOOD COUNT 14.86 K/uL (4.8-10.8)
[2018-03-03 08:38] LABS: ALBUMIN 2.8 gm/dl (3.4-5.0); AST/SGOT 13 U/L (15-37); BLOOD UREA NITROGEN 33 mg/dl (7-18); CARBON DIOXIDE 27 mmol/L (21-32); CREATININE 1.24 mg/dl (0.60-1.20); GLUCOSE 158 mg/dl (70-99); INR 0.9 (0.9-1.1); LIPASE 99 U/L (73-393); POTASSIUM 4.3 mmol/L (3.5-5.1); PTT PATIENT 20.3 SECONDS (21.0-31.0); SODIUM 137 mmol/L (136-145)
[2018-03-03] MEDS ORDERED: LCTX PO (08:43)
[2018-03-03] MEDS ORDERED: LVMIPEN SQ (08:43)
[2018-03-03 08:45] LABS: ALKALINE PHOSPHATASE 90 U/L (45-117); ALT/SGPT 12 U/L (12-78); TOTAL PROTEIN 7.4 gm/dl (6.4-8.2)
[2018-03-03] MEDS ORDERED: MULT-506 PO (08:45)
[2018-03-03] MEDS ORDERED: OPTIRAY 320 IV PRN (08:45)
[2018-03-03] MEDS ORDERED: ASCO500T16 PO (08:47)
--- NOTE | 2018-03-03 12:06 | DIAGNOSTIC IMAGING REPORT ---
ABD/PELVIS IV AND ORAL CONT CT DOSE: 302.62 mGy.cm HISTORY: Pain. Leading. rectal bleeding TECHNIQUE: Multiaxial CT images of the abdomen and pelvis were performed following the use of intravenous and oral contrast. A dose lowering technique was utilized adhering to the principles of ALARA. COMPARISON STUDY: 11/12/2017 FINDINGS: Mild chronic bibasilar interstitial and peribronchial prominence. Fixed hiatal hernia unchanged. Liver spleen and pancreas are uniform in appearance. Multiple right and to a lesser extent left renal calcifications unchanged in location and appearance compared to the prior study. Several calcifications are within the right renal pelvis but there is no evidence for obstructive characteristics. The bowel pattern is notable for an annular lesion of the colon immediately proximal to the hepatic flexure. This measures 4 x 3 cm. It appears to be nonobstructing. There is a small amount of pericolonic infiltrative change with several small adjacent lymph nodes. Possibility of localized infiltrative change is not excluded.. Remainder the study is unremarkable. Several nonobstructing renal calcifications are present. The bladder is midline. There is minimal calcification of the bladder wall. There is no significant pelvic or inguinal adenopathy. Stable postoperative changes of the lumbar spine as well as stable degenerative changes of the axial and appendicular skeleton. IMPRESSION: 1. 4 x 3 cm annular lesion of the colon immediately proximal to the hepatic flexure. 2. A neoplastic process with minimal localized infiltrative change must be considered. 3. Bilateral renal nephrocalcinosis and small renal cysts unchanged. 4. Stable small hiatal hernia. 5. Stable degenerative and postoperative change of the osseous structures and lumbar spine. The above report was generated using voice recognition software. It may contain grammatical, syntax or spelling errors. Electronically signed by: Braeden Calhoun M.D. 03/03/2018 12:04 PM Dictated Date/Time: 03/03/2018 11:53 AM
[2018-03-03 13:01] VITALS: BP 113/65; PULSE 99; O2SAT 98
--- NOTE | 2018-03-03 13:16 | EMERGENCY ROOM VISIT NOTE ---
History First contact with patient: 07:54 Chief Complaint: RECTAL BLEEDING Stated Complaint: GI ASSESSMENT Nursing Triage Summary: Pt from [facility], Per EMS pt had 2 dark stools yesterday, today had a stool with clots and dark stool. Pt a/ox4, RUANO, Lungs CTA, abd soft positive BS, denies pain, pt is diapered and sttes she can not controll when the stool comes out, skin w/d/i, pt pale. History of Present Illness The patient is a 88 year old female who presents to the Emergency Room via EMS from [facility] with complaints of rectal bleeding. Per the staff at [facility] the patient had 2 dark stools yesterday and today had a bowel movement that had blood clots and dark stool. The patient is on an aspirin and Plavix daily. The patient also admits to nausea but denies any vomiting or abdominal pain. She states that her stools have been loose over the last several days. The patient is a poor historian for her past medical history. She does admit that she had a colonoscopy done at [facility] but does not remember when or who performed colonoscopy. Review of Systems 10 system review was performed and was negative unless stated otherwise history of present illness. Past Medical/Surgical History Medical Problems: (1) Colitis (2) CVA (3) Diabetes mellitus (4) History of - hypertension (5) Sepsis (6) Urinary tract infection Family History Patient reports no known family medical history. Social History Smoking Status: Never Smoker Alcohol Use: none Drug Use: none Marital Status: Housing Status: lives with family Occupation Status: retired Current/Historical Medications Scheduled Ascorbic Acid (Ascorbic Acid), 500 MG PO DAILY Aspirin (Aspirin Ec), 81 MG PO DAILY Clopidogrel (Plavix), 75 MG PO DAILY Cyanocobalamin (Vitamin B-12 1000 Mcg), 1,000 MCG PO DAILY Ferrous Sulfate (Ferrous Sulfate), 325 MG PO QAM Insulin Detemir (Levemir Flextouch), 6 UNITS SQ QPM Lactobacillus Acidophilus (Lactinex), 1 TAB PO DAILY Lorazepam (Lorazepam), 0.5 MG PO AMHS Magnesium (Magnesium 250 mg), 500 MG PO BID Mirabegron (Myrbetriq Er), 50 MG PO DAILY Multivitamin (Multivitamin), 1 TAB PO DAILY Omeprazole (Prilosec), 40 MG PO QAM Potassium Citrate (Potassium Citrate), 10 MEQ PO BID Propranolol (Inderal), 40 MG PO DAILY Raspberry (Raspberry Syrup), 5 ML PO QID Simvastatin (Zocor), 40 MG PO QPM Vancomycin HCl (Vancomycin HCl + Syrspend), 125 MG PO QID Scheduled PRN Acetaminophen Tab (Tylenol), 650 MG PO Q8 PRN for Pain or Fever Insulin Lispro (Human) (Humalog), 1 DOSE SQ Q4H PRN for Hyperglycemia Protocol Meclizine Hcl (Meclizine Hcl), 25 MG PO Q8 PRN for VERTIGO Nitroglycerin (Nitrostat), 0.4 MG UT PRN PRN for Chest Pain Physical Exam Vital Signs Date Time Temp Pulse Resp B/P (MAP) Pulse Ox O2 Delivery O2 Flow Rate FiO2 03/03/18 12:31 105 18 115/70 97 Room Air 03/03/18 11:15 106 03/03/18 11:13 106 18 123/69 100 Room Air 03/03/18 09:54 98 18 114/79 98 Room Air 03/03/18 08:44 102 20 135/82 96 Room Air 03/03/18 08:08 36.4 104 20 106/68 96 Room Air 03/03/18 08:00 103 03/03/18 07:44 103 20 100/68 97 Room Air Physical Exam GENERAL: 80-year-old white female appears in no acute distress. MENTAL Status: Alert and oriented 3. EYES: Conjunctiva slightly pale. MOUTH: Mucosa is moist NECK: Supple, no lymphadenopathy noted. No carotid bruits noted. LUNGS: Clear auscultation without wheezes rales or rhonchi. CARDIAC: Regular rate and rhythm without murmur. Pulses is full and equal throughout. BACK: No CVA tenderness noted. ABDOMEN: Positive bowel sounds all 4 quadrants. Soft, nontender to palpation without organomegaly or masses. RECTAL: Multiple hemorrhoids noted. Anal sphincter tone intact. No palpable internal masses. Stool guaiac was positive. EXTREMITIES: No cyanosis or edema noted. Medical Decision & Procedures ER Provider Diagnostic Interpretation: ABD/PELVIS IV AND ORAL CONT CT DOSE: 302.62 mGy.cm HISTORY: Pain. Leading. rectal bleeding TECHNIQUE: Multiaxial CT images of the abdomen and pelvis were performed following the use of intravenous and oral contrast. A dose lowering technique was utilized adhering to the principles of ALARA. COMPARISON STUDY: 11/12/2017 FINDINGS: Mild chronic bibasilar interstitial and peribronchial prominence. Fixed hiatal hernia unchanged. Liver spleen and pancreas are uniform in appearance. Multiple right and to a lesser extent left renal calcifications unchanged in location and appearance compared to the prior study. Several calcifications are within the right renal pelvis but there is no evidence for obstructive characteristics. The bowel pattern is notable for an annular lesion of the colon immediately proximal to the hepatic flexure. This measures 4 x 3 cm. It appears to be nonobstructing. There is a small amount of pericolonic infiltrative change with several small adjacent lymph nodes. Possibility of localized infiltrative change is not excluded.. Remainder the study is unremarkable. Several nonobstructing renal calcifications are present. The bladder is midline. There is minimal calcification of the bladder wall. There is no significant pelvic or inguinal adenopathy. Stable postoperative changes of the lumbar spine as well as stable degenerative changes of the axial and appendicular skeleton. IMPRESSION: 1. 4 x 3 cm annular lesion of the colon immediately proximal to the hepatic flexure. 2. A neoplastic process with minimal localized infiltrative change must be considered. 3. Bilateral renal nephrocalcinosis and small renal cysts unchanged. 4. Stable small hiatal hernia. 5. Stable degenerative and postoperative change of the osseous structures and lumbar spine. The above report was generated using voice recognition software. It may contain grammatical, syntax or spelling errors. Electronically signed by: Braeden Calhoun M.D. Laboratory Results 03/03/18 08:06 Red Blood Count 3.44, Mean Corpuscular Volume 92.4, Mean Corpuscular Hemoglobin 30.8, Mean Corpuscular Hemoglobin Concent 33.3, Mean Platelet Volume 8.4, Neutrophils (%) (Auto) 59.7, Lymphocytes (%) (Auto) 28.8, Monocytes (%) (Auto) 8.9, Eosinophils (%) (Auto) 2.0, Basophils (%) (Auto) 0.3, Neutrophils # (Auto) 8.87, Lymphocytes # (Auto) 4.28, Monocytes # (Auto) 1.32, Eosinophils # (Auto) 0.30, Basophils # (Auto) 0.04 03/03/18 08:06 Test 03/03/18 08:06 White Blood Count 14.86 K/uL (4.8-10.8) Red Blood Count 3.44 M/uL (4.2-5.4) Hemoglobin 10.6 g/dL (12.0-16.0) Hematocrit 31.8 % (37-47) Mean Corpuscular Volume 92.4 fL (80-100) Mean Corpuscular Hemoglobin 30.8 pg (25-34) Mean Corpuscular Hemoglobin Concent 33.3 g/dl (32-36) Platelet Count 517 K/uL (130-400) Mean Platelet Volume 8.4 fL (7.4-10.4) Neutrophils (%) (Auto) 59.7 % Lymphocytes (%) (Auto) 28.8 % Monocytes (%) (Auto) 8.9 % Eosinophils (%) (Auto) 2.0 % Basophils (%) (Auto) 0.3 % Neutrophils # (Auto) 8.87 K/uL (1.4-6.5) Lymphocytes # (Auto) 4.28 K/uL (1.2-3.4) Monocytes # (Auto) 1.32 K/uL (0.11-0.59) Eosinophils # (Auto) 0.30 K/uL (0-0.5) Basophils # (Auto) 0.04 K/uL (0-0.2) RDW Standard Deviation 56.3 fL (36.4-46.3) RDW Coefficient of Variation 17.6 % (11.5-14.5) Immature Granulocyte % (Auto) 0.3 % Immature Granulocyte # (Auto) 0.05 K/uL (0.00-0.02) Prothrombin Time 9.8 SECONDS (9.0-12.0) Prothromb Time International Ratio 0.9 (0.9-1.1) Activated Partial Thromboplast Time 20.3 SECONDS (21.0-31.0) Partial Thromboplastin Ratio 0.8 Anion Gap 6.0 mmol/L (3-11) Est Creatinine Clear Calc Drug Dose 24.8 ml/min Estimated GFR () 44.9 Estimated GFR (Non- 38.8 BUN/Creatinine Ratio 26.5 (10-20) Calcium Level 9.0 mg/dl (8.5-10.1) Total Bilirubin 0.4 mg/dl (0.2-1) Direct Bilirubin < 0.1 mg/dl (0-0.2) Aspartate Amino Transf (AST/SGOT) 13 U/L (15-37) Alanine Aminotransferase (ALT/SGPT) 12 U/L (12-78) Alkaline Phosphatase 90 U/L (45-117) Total Protein 7.4 gm/dl (6.4-8.2) Albumin 2.8 gm/dl (3.4-5.0) Lipase 99 U/L (73-393) Medications Administered Medications (Trade) Dose Ordered Sig/Nemo Route Start Time Stop Time Status Last Admin Dose Admin Pantoprazole Sodium 40 mg/ Syringe 10 ml @ 5 mls/min NOW ONCE IV 03/03/18 08:30 03/03/18 08:31 DC 03/03/18 09:02 5 MLS/MIN Ondansetron HCl (Zofran Inj) 4 mg NOW STAT IV 03/03/18 08:19 03/03/18 08:25 DC 03/03/18 08:41 4 MG Procedure anoscopy was performed. anoscope was lubricated with K-Y jelly. It was inserted into the rectum and a central portion removed. The patient had dark stools within the rectum. The stools were liquid in nature. There was a large thrombosed hemorrhoid at the 2 o'clock position internally. No visible areas of active bleeding or fissures noted. The anoscope was removed. Patient tolerated procedure well. ED Course The patient was evaluated. The patient is EMR medication list were reviewed. Patient is on blood thinners. Also the patient has a history of C. difficile. She was on antibiotics in November. She also has a history of anemia. Her hemoglobin has been running from mid 9 to low tens. IV access was obtained. CBC differential, coags, renal profile, LFTs were ordered. Stool for C. difficile, culture and WBCs was ordered. The patient was given Protonix 40 mg IV push and Zofran 4 mg IV for nausea. Anoscopy was performed as above. CT of the abdomen and pelvis was ordered interpreted by radiologist as above with a similar finding of a possible lesion just proximal to the hepatic flexure which was also seen on the prior CT. at that time the patient and family members did not want to do any colonoscopy or surgery. Patient's labs were reviewed. The patient's hemoglobin was 10.6 and hematocrit 31.8 which is baseline for the patient. Her BUN was elevated at 33 and creatinine elevated at 1.24. Otherwise labs are unremarkable. The patient was independently evaluated by Dr. Shah who agreed with treatment plan. The patient's family as well as the patient herself did not want a colonoscopy or surgery. Palliative care was discussed with the patient and they are in agreement. I consulted Dr. Vernon about the patient and her decision at this point to just do palliative care. The patient will keep her scheduled appointment with Dr. Vernon at the end of the month. I also discussed the case with Darwin Tian PA-C at [facility] about the patient's desire for palliative care only. The patient was discharged home in stable condition. ER charge nurse will arrange transportation. Medical Decision The patient has had chronic anemia with no worsening of her hematocrit and hemoglobin. She has a similar lesion noted on the ascending colon which is unchanged from prior CT of November. Patient and family members just want palliative care for this problem. Therefore this was arranged with provider at [facility] and also discussed with Dr. Vernon. [place] Drug Monitoring Program Search Results: patient reviewed within database Medication Reconcilliation Current Medication List: was personally reviewed by me Blood Pressure Screening Patient's blood pressure: Normal blood pressure Impression Primary Impression: Anemia Additional Impressions: Lesion of colon Rectal bleeding Departure Information Dispostion Home / Self-Care Condition [facility] (PCP) Forms HOME CARE DOCUMENTATION FORM, IMPORTANT VISIT INFORMATION, WORK / SCHOOL INSTRUCTIONS Patient Instructions GI Bleeding - [facility], [facility] Additional Instructions Continue current medications as prescribed. Palliative care as discussed with Darwin Tian PA-C at [facility]. Keep scheduled follow-up appointment with Dr. Vernon. Return to ER as needed. Problem Qualifiers Primary Impression: Anemia Anemia type: unspecified type Qualified Codes: D64.9 - Anemia, unspecified
--- NOTE | 2018-03-04 05:45 | EMERGENCY ROOM VISIT NOTE ---
ED Visit Note First contact with patient: 07:54 Physician Family Living Educator Supervision Note: I interviewed and examined the patient. Discussed with Letty Calhoun PA-C and agree with findings and plan as documented in the note. Any exceptions or clarifications are listed here: CT images were reviewed. Pt has prior knowledge of "something on the colon" but declined colonoscopy recently. This mass is again seen, I suspect the source of rectal bleeding. I discussed with pt and family the options for w/u of the mass and she has again declined and invasive procedure, including scope. She expresses an understanding of likelihood of malignancy and progression without intervention. Please refer to Letty Calhoun PA-C's notes for details of visit. Documented By: Yajaira Shah
== END 2018-03-03 14:05 | disposition home or self-care (01) ==
LOC: EDBD 07:42 → C.EDB 07:44
DX: K62.5 Hemorrhage of anus and rectum (principal); D64.9 Anemia, unspecified; K63.9 Disease of intestine, unspecified; K44.9 Diaphragmatic hernia without obstruction or gangrene; E83.59 Other disorders of calcium metabolism; N29 Other disorders of kidney and ureter in diseases classified elsewhere; E11.9 Type 2 diabetes mellitus without complications; Z79.01 Long term (current) use of anticoagulants; Z86.73 Personal history of transient ischemic attack (TIA), and cerebral infarction without residual deficits; K64.8 Other hemorrhoids

== ENCOUNTER → 2018-04-01 | Outpatient (CLI) | payer OTHER ==
[~2018-04-01] MED LIST changes: +ASCO500T16 PO; -CEFD300C3 PO; -IMD2X PO; -INSDGI SC; +LCTX PO; -LISI40TA PO; +LVMIPEN SQ; +MULT-506 PO; -PENT100C6 PO
[2018-04-01 10:12] LABS: HEMOGLOBIN A1C 7.5 % (4.5-5.6)
== END ==
LOC: C.LABCC 07:44
PROVIDERS: ATTEND Internal Medicine
DX: E11.9 Type 2 diabetes mellitus without complications (principal)